=== PATIENT | female | born 1955 | race Caucasian/White ===

== ENCOUNTER 2023-07-22 13:00 | Outpatient (AMB) | payer OTHER, SELFPAY ==
--- NOTE | 2023-07-22 13:15 | A.SPINEOV_ITS ---
Intake Intake Visit Reasons: Low back pain Intake Note: Ms. Montenegro is here today c/o low back pain. MRI done @ [facility]/brought disc. Delivery Associate Required: No Assessment & Plan Assessment & Plan (1) Spondylolisthesis, lumbar region: Code(s): M43.16 - Spondylolisthesis, lumbar region Plan: Dear colleague Thank you for referring Ashley Montenegro for a 2nd opinion to the office today with a chief complaint of back pain and left leg pain. HPI: This 68-year-old female this suffer from progressive back pain and left leg pain. She was previously seen by Dr. Mehta, neurosurgeon at [facility] for the symptoms. He initially offered an L4-5 lumbar fusion and left L5 foraminotomy and during his last visit he only wanted to do a left L5 foraminotomy. This surgery was denied for not having completed a course of physical therapy recently. She had her last physical therapy visit today, which provided no relief. To the back pain is located in the lumbar spine, bilaterally. The leg pain radiates to the outside of her left leg to the top of her foot. The pain is associated with numbness. There is no clear radiation down her right leg. The pain in her leg especially becomes bothersome after walking up stairs. The back pain and leg pain become bothersome after prolonged standing. She denies weakness. 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 Nonsmoker Medications: Tramadol, diclofenac, pregabalin, omeprazole, ipratropium, trazodone, tizanidine, Cassandra and Buspirone Allergies: NKDA Physical Exam: Pleasant female. She is able to come out of a chair without difficulties. Straight leg raise is negative. No objective motor or sensory deficits. No pathological reflexes. Radiological Studies: MRI done at [facility] shows a grade 1 anterolisthesis L4-5, moderate to severe degenerative disc disease L5-S1 with left moderate to severe L5 foraminal stenosis. A standing lumbar x-ray with flexion-extension shows again the grade 1-2 spondylolisthesis L4-5. Impression/Plan: This patient is suffering from back pain and left lumbar radiculopathy. Both symptoms are interfering with her daily activities. She has been calling and more sick due to the pain symptoms. The back pain could be related to the L4-5 spondylolisthesis but also be coming from the L5-S1 degenerative disc disease. The lumbar radiculopathy is most likely associated with the left L5 foraminal stenosis. To treat the back pain involves a lumbar fusion, which in this case may be an L4-S1 lumbar fusion. My advice to the patient would be to undergo a left L5 laminotomy/foraminotomy to decompress the L5 nerve root to treat her left leg pain. Postoperatively, we can follow the back pain and see if this surgery had any in friends on the back pain as well. A fusion could always be done in the future. She is scheduled for a the L5 nerve root decompression on 08/28/2023. Thank you for allowing me to participate in your patients care. total time spent was 50 minutes in counseling ,coordination of plan, personal review of imaging, surgical decision making and subsequent plan Syd Escalera MD, PhD Spine Fellowship Trained Neurosurgeon Director, [facility] [place] [facility] (2) Neuroforaminal stenosis of lumbar spine: Code(s): M48.061 - Spinal stenosis, lumbar region without neurogenic claudication (3) Disc disease, degenerative, lumbar or lumbosacral: Code(s): M51.37 - Other intervertebral disc degeneration, lumbosacral region Orders: Orders XR lumbar spine 4V min Today M43.16 - Spondylolisthesis, lumbar region Coding Level of Care Code New Pt Level 4 (25717) Diagnoses Spondylolisthesis, lumbar region M43.16 Neuroforaminal stenosis of lumbar spine M48.061 Disc disease, degenerative, lumbar or lumbosacral M51.37
== END 2023-07-22 14:19 | disposition home or self-care (01) ==
PROVIDERS: Referring Provider Physical Medicine & Rehabilitation; Visit Provider Neurological Surgery
DX: M43.16 Spondylolisthesis, lumbar region (principal); M48.061 Spinal stenosis, lumbar region without neurogenic claudication; M51.37 Other intervertebral disc degeneration, lumbosacral region
CPT/HCPCS: 99204

== ENCOUNTER 2023-07-22 13:00 | Outpatient (REF) | payer OTHER, SELFPAY ==
--- NOTE | ~2023-07-22 | XR_ITS ---
EXAMINATION: XR LUMBOSACRAL SPINE WITH OBLIQUES CLINICAL INFORMATION: Spondylolisthesis. COMPARISON: None available. TECHNIQUE: 4 views of the lumbar spine inclusive of flexion and extension views. FINDINGS: Slight rightward curvature of the thoracolumbar spine. The bones are diffusely demineralized. Grade 1 anterolisthesis of L4 on L5 persists on flexion and extension views. Mild loss of disc space height at L4-L5. Marked degenerative changes at L5-S1 with loss of disc space height, vacuum phenomenon and hypertrophic change. Facet arthritis in the lower lumbar spine. XR/XR lumbar spine 4V min IMPRESSION: Grade 1 anterolisthesis of L4 on L5. Marked degenerative changes at L5-S1.
== END 2023-07-22 13:01 | disposition home or self-care (01) ==
LOC: HO.HOSX 13:00
PROVIDERS: Visit Provider Neurological Surgery
DX: M43.16 Spondylolisthesis, lumbar region (principal); M51.37 Other intervertebral disc degeneration, lumbosacral region
CPT/HCPCS: 72110

== ENCOUNTER 2023-08-12 13:40 | Outpatient (AMB) | payer OTHER, SELFPAY ==
--- NOTE | 2023-08-12 13:58 | HO.SPINEOV ---
Intake Intake Visit Reasons: Pt forgot to ask questions on her visit 07/22/23 Intake Note: Ms. Montenegro is here today Re: surgical questions. Field Logistics Coordinator Required: No Assessment & Plan Assessment & Plan (1) Spondylolisthesis, lumbar region: Code(s): M43.16 - Spondylolisthesis, lumbar region (2) Disc disease, degenerative, lumbar or lumbosacral: Code(s): M51.37 - Other intervertebral disc degeneration, lumbosacral region (3) Neuroforaminal stenosis of lumbar spine: Code(s): M48.061 - Spinal stenosis, lumbar region without neurogenic claudication Plan Dear colleague On 08/12/2023, I saw for another preoperative visit your patient Ashley Rouse. She scheduled to undergo a left L5 foraminotomy in attempt to avoid an L4-S1 lumbar fusion. However she returns to make sure she made the right decision. She tells me that not only her left leg is affected but her that her right leg is also affected with pain towards the right thigh and numbness on the top of her foot. She also states that the back pain becomes unbearable. She tried all forms of therapy discussing my previous note. We reviewed the MRI of the lumbar spine again in detail which shows a grade 2 L4-5 spondylolisthesis, severe L5-S1 degenerative disc disease and a severe left L5 foraminal stenosis. A standing x-ray shows a grade 2 L4-5 spondylolisthesis and severe L5-S1 degenerative disc disease with vacuum phenomena. Based on her clinical symptoms, a left L5 foraminotomy is not going to be sufficient to treat bilateral leg pain and back pain. Therefore, I offered her an oblique lumbar interbody fusion L4-S1 to correct the spondylolisthesis that will indirectly decompress her central canal and exiting nerve roots and to address her severely degenerated L5-S1 disc and foraminal stenosis. She will be scheduled for October. She will visit , will provide the access to the L5-S1 region. I spent 30 minutes in this consult for repeat history and review of imaging and discussing plan of care. Thank you for letting me take care of your patient. Syd Escalera MD, PhD Spine Fellowship Trained Neurosurgeon Director, [facility] [place] [facility] Coding Level of Care Code Est Pt Level 4 (75695) Diagnoses Spondylolisthesis, lumbar region M43.16 Disc disease, degenerative, lumbar or lumbosacral M51.37 Neuroforaminal stenosis of lumbar spine M48.061
== END 2023-08-12 15:07 | disposition home or self-care (01) ==
PROVIDERS: Visit Provider Neurological Surgery
DX: M43.16 Spondylolisthesis, lumbar region (principal); M51.37 Other intervertebral disc degeneration, lumbosacral region; M48.061 Spinal stenosis, lumbar region without neurogenic claudication
CPT/HCPCS: 99214

== ENCOUNTER → 2023-08-12 13:40 | Outpatient (BNVA) | payer OTHER, SELFPAY | PROVIDERS: Visit Provider Neurological Surgery ==

== ENCOUNTER 2023-11-11 14:42 | Outpatient (AMB) | payer OTHER, SELFPAY ==
--- NOTE | 2023-11-11 14:44 | MHC.OFFVIS ---
Intake Intake Visit Reasons: F/u after surgical denial from insurance Senior Air Director Required: No Allergies No Known Allergies Allergy (Verified 08/22/23 10:28) [facility] Medical History (Updated 08/22/23 @ 11:11 by Suad Bowen RN) Palpitations Low vitamin D level Lichen sclerosus Heberden's nodes of both hands Insomnia DJD (degenerative joint disease) of cervical spine DDD (degenerative disc disease), lumbar Chronic narcotic use Depression COVID-19 Elevated cholesterol Murmur Back pain Neck pain Osteopenia Osteoporosis Arthritis HTN (hypertension) Assessment & Plan Assessment & Plan (1) Disc disease, degenerative, lumbar or lumbosacral: Code(s): M51.37 - Other intervertebral disc degeneration, lumbosacral region (2) Neuroforaminal stenosis of lumbar spine: Code(s): M48.061 - Spinal stenosis, lumbar region without neurogenic claudication (3) Spondylolisthesis, lumbar region: Code(s): M43.16 - Spondylolisthesis, lumbar region Plan Dear colleague, On 11/11/2023, I saw for return visit Ashley Montenegro after her L4-S1 lumbar fusion was denied by [employer]. The patient is suffering from intractable low back pain radiating down both legs. The pain in her legs are associated with walking and standing and improves when she sits down. The low back pain is constant. An MRI of the lumbar spine from September 2022 shows a grade 2 L4-5 spondylolisthesis with associated moderate central spinal stenosis and lateral recess stenosis and severe degenerative disc disease L5-S1 with severe left L5 foraminal stenosis. The MRI report is incomplete as it obliterates the L4-5 spondylolisthesis and associated moderate central spinal stenosis. A standing x-ray with flexion-extension shows again a grade 2 L4-5 spondylolisthesis with instability. The patient was denied wrongly based on the above information that was also dictated in my previous notes. It is just unfair that nonprofessionals looking at MRI reports without talking to the patient and examining the patient or actually reviewing the imaging are making surgical decisions, while the patient was evaluated by a neurosurgeon with more than 20 years of experience. The plan will be to repeat of the MRI of the lumbar spine and resubmit for surgery. Syd Escalera MD, PhD Spine Fellowship Trained Neurosurgeon Director, [facility] [place] [facility] Orders: Orders MR lumbar spine wo con Today M43.16 - Spondylolisthesis, lumbar region, M48.061 - Spinal stenosis, lumbar region without neurogenic claudication, M51.37 - Other intervertebral disc degeneration, lumbosacral region Coding Level of Care Code Est Pt Level 2 (04400) Diagnoses Disc disease, degenerative, lumbar or lumbosacral M51.37 Neuroforaminal stenosis of lumbar spine M48.061 Spondylolisthesis, lumbar region M43.16
== END 2023-11-11 15:30 | disposition home or self-care (01) ==
PROVIDERS: PCP Nurse Practitioner Adult Health; Visit Provider Neurological Surgery
DX: M51.37 Other intervertebral disc degeneration, lumbosacral region (principal); M48.061 Spinal stenosis, lumbar region without neurogenic claudication; M43.16 Spondylolisthesis, lumbar region
CPT/HCPCS: 99212

== ENCOUNTER → 2023-11-11 14:42 | Outpatient (BNVA) | payer OTHER, SELFPAY | PROVIDERS: PCP Nurse Practitioner Adult Health; Visit Provider Neurological Surgery ==

== ENCOUNTER 2023-11-25 18:51 | Outpatient (REF) | payer OTHER, SELFPAY ==
--- NOTE | ~2023-11-25 | MR_ITS ---
EXAMINATION: MR LUMBAR SPINE WITHOUT CONTRAST CLINICAL INFORMATION: Left leg radiculopathy. COMPARISON: X-ray lumbar spine dated 07/22/2023. TECHNIQUE: Multiplanar, multisequence imaging was obtained. FINDINGS: VERTEBRAL BODIES AND PARASPINAL STRUCTURES: There is an intraosseous hemangioma nearly filling the entirety of the T12 vertebral body. No compression fractures are identified. There is a mild anterolisthesis at the L4-L5 level. No marrow or soft tissue edematous changes are seen. Multilevel reduced intradiscal signal and mild loss of disc height evident. The paraspinal soft tissues appear normal. A 6 mm round low signal focus in the left kidney may represent a small proteinaceous cyst or nonobstructing calculus. CONUS MEDULLARIS AND CAUDA EQUINE: The distal cord, conus tip, and cauda equina nerve roots are normal. SPINAL LEVELS: L1-L2: Small posterior annular fissure and minimal disc bulge. No central canal stenosis or foraminal narrowing. L2-L3: Slight posterior subluxation and disc bulge without central canal stenosis or foraminal narrowing. L3-L4: Mild retrosubluxation and broad-based disc bulge lateralized more so to the right side with encroachment upon the right subarticular zone, contacting the right L4 nerve root. Mild facet arthropathy. Zsrr-ol-uptaykcf right foraminal narrowing. L4-L5: Anterior subluxation and unroofing of the disc with severe facet arthropathy. Dhyx-jy-hhekzdio central canal stenosis and mild foraminal narrowing. L5-S1: Reduced intradiscal signal and disc bulge with endplate spurring. No central canal stenosis. Moderate right foraminal narrowing. Severe left foraminal encroachment from bulging disc and osseous spurring impressing upon the exiting left L5 nerve root. MR/MR lumbar spine wo con IMPRESSION: 1. Mild anterolisthesis and severe facet arthropathy at the L4-L5 level with stgh-jc-kgyqarys central canal stenosis. 2. Mild retrosubluxation and broad-based disc bulge at the L3-L4 level encroaching upon the right subarticular zone and contacting the right L4 nerve root. Ajeb-vi-wicrrvre right foraminal narrowing. 3. Moderate right foraminal narrowing and mild disc degeneration at the L5-S1 level. Severe left foraminal encroachment from bulging disc and osseous spurring impressing upon the left L5 nerve root. 4. Indeterminate 6 mm low signal focus in the interpolar region of the left kidney, possibly representing a calculus or a proteinaceous cyst. This could be further evaluated with follow-up renal sonography.
== END 2023-11-25 18:52 | disposition home or self-care (01) ==
LOC: HO.MRI 18:51
PROVIDERS: PCP Nurse Practitioner Adult Health; Visit Provider Neurological Surgery
DX: M43.16 Spondylolisthesis, lumbar region (principal); M48.061 Spinal stenosis, lumbar region without neurogenic claudication; M51.37 Other intervertebral disc degeneration, lumbosacral region
CPT/HCPCS: 72148

== ENCOUNTER 2023-12-24 14:49 | Outpatient (AMB) | payer OTHER, SELFPAY ==
--- NOTE | 2023-12-24 15:00 | A.OFFVIS_ITS ---
Intake Intake Visit Reasons: MRI f/up Yarn Twister Required: No Allergies No Known Allergies Allergy (Verified 08/22/23 10:28) [facility] Medical History (Updated 12/24/23 @ 15:32 by Syd Escalera MD, PhD) Palpitations Low vitamin D level Lichen sclerosus Heberden's nodes of both hands Insomnia DJD (degenerative joint disease) of cervical spine DDD (degenerative disc disease), lumbar Chronic narcotic use Depression COVID-19 Elevated cholesterol Murmur Back pain Neck pain Osteopenia Osteoporosis Arthritis HTN (hypertension) Assessment & Plan Assessment & Plan (1) Cervical spinal cord compression: Code(s): G95.20 - Unspecified cord compression (2) Disc disease, degenerative, lumbar or lumbosacral: Code(s): M51.37 - Other intervertebral disc degeneration, lumbosacral region (3) Neuroforaminal stenosis of lumbar spine: Code(s): M48.061 - Spinal stenosis, lumbar region without neurogenic claudication Plan Dear colleague, On 12/24/2023 and I saw for follow-up Ashley Montenegro. She was offered an oblique lumbar interbody fusion L4-5 and L5-S1 to treat a grade 2 spondylolisthesis L4-5 with moderate central canal stenosis and severe degenerative disc disease L5-S1 with severe left L5 foraminal stenosis. [employer], the insurance company, only approved the L5-S1 fusion as according to them the L4-5 is not bad enough to undergo surgery. They have not seen the patient, they have not seen imaging and just deny patient care. If I would show the imaging to 10 spine surgeons, I can guarantee that 9/10 would say that she needs a 2 level fusion and that leaving the L4-5 level alone would result in an additional L4-5 fusion in the near future. We are going to try to appeal the decision and I hope I will speak to a spine fellowship trained surgeon to address the issue. It is just unacceptable that this is done to our patients and their physicians. I only studied 18 years to become a neurosurgeon and have more than 22 years of experience. During the discussion today, the patient mentioned that she has urge incontinence and numbness of her bilateral hands. Apparently, she had an MRI done in the past I was offered cervical spine surgery. Dear urge incontinence symptom is worrisome and therefore I will also order an MRI of the cervical spine and hopefully this will get approved. I will see the patient back after the MRIs done. Syd Escalera MD, PhD Spine Fellowship Trained Neurosurgeon Director, [facility] [place] [facility] Orders: Orders MR cervical spine wo con Today G95.20 - Unspecified cord compression Coding Level of Care Code Est Pt Level 3 (55437) Diagnoses Cervical spinal cord compression G95.20 Disc disease, degenerative, lumbar or lumbosacral M51.37 Neuroforaminal stenosis of lumbar spine M48.061
== END 2023-12-24 16:33 | disposition home or self-care (01) ==
PROVIDERS: PCP Nurse Practitioner Adult Health; Visit Provider Neurological Surgery
DX: G95.20 Unspecified cord compression (principal); M51.37 Other intervertebral disc degeneration, lumbosacral region; M48.061 Spinal stenosis, lumbar region without neurogenic claudication
CPT/HCPCS: 99213

== ENCOUNTER → 2023-12-24 14:49 | Outpatient (BNVA) | payer OTHER, SELFPAY | PROVIDERS: PCP Nurse Practitioner Adult Health; Visit Provider Neurological Surgery ==

== ENCOUNTER 2024-01-13 17:20 | Outpatient (REF) | payer OTHER, SELFPAY ==
--- NOTE | ~2024-01-13 | MR_ITS ---
EXAMINATION: MR CERVICAL SPINE WITHOUT CONTRAST CLINICAL INFORMATION: 68-year-old with self-reported neck pain over prior year with left finger numbness or weakness and left leg pain. Unspecified cord compression. COMPARISON: None available. TECHNIQUE: MRI of the cervical spine was obtained using routine sequences without contrast. FINDINGS: ALIGNMENT: There is mild lordotic reversal centered at C4-C5 with 2 mm of anterolisthesis at C4 on C5. There is trace anterolisthesis at C7-T1. CRANIOCERVICAL JUNCTION/C1-C2 ARTICULATIONS: The atlanto-occipital joints are intact and aligned. There are mild bilateral joint effusions, right more than left which are nonspecific. There are mild degrees of retrolisthesis at the C1-C2 articulations bilaterally likely reflecting ligamentous laxity and patient position. There are degenerative changes at the atlantodental joint with a tiny effusion noted. VISUALIZED INTRACRANIAL STRUCTURES: Within normal limits. VERTEBRAL BODIES: There is mild chronic anterior wedging of the C4 and C5 vertebral bodies. Otherwise vertebral body heights are well-maintained. DISC SPACES AND ENDPLATES: Moderate to severe intervertebral disc space height loss noted at C5-C6 and C6-C7 with Schmorl's nodes, disc desiccation and spondylosis. Mjdp-ii-fpogwyih disc volume loss at C4-C5 noted with disc desiccation and minor spondylosis. Mild disc volume loss at C7-T1 noted. BONE MARROW: Minor type I degenerative marrow signal changes seen along the endplates at C6-C7. Type II marrow signal changes along the endplates at C5-C6 and C6-C7 also noted. No focally suspicious marrow replacing process. Minor subchondral marrow edema noted adjacent to the left C3-C4 and C4-C5 facet joints likely degenerative. C2-C3: Tiny central disc protrusion without significant thecal sac encroachment. Mild right and moderate left-sided facet joint arthropathy with uncinate process spurring on the left and tbmv-iv-whekyxyb left-sided neural foraminal stenosis. Ligamentum flavum thickening noted without significant canal stenosis. C3-C4: Small posterior disc osteophyte complex noted with minimal indentation of the ventral thecal sac without cord impingement. Ligamentum flavum thickening or buckling noted without significant canal stenosis. Uncovertebral spurring noted with bhjsqcom-uy-ykjntb bilateral facet joint arthropathy, with ghde-zn-jraarxnz right and mild left-sided neural foraminal stenosis. C4-C5: Unroofing of the posterior disc margin with mild flattening of the ventral dural sac without cord impingement or canal stenosis. Moderate bilateral facet hypertrophic changes and uncinate process spurring noted without significant neural foraminal stenosis. C5-C6: Broad-based posterior disc osteophyte complex noted, with flattening of the ventral dural sac without cord impingement. Slight chronic ventral cord deformity centrally is noted with mild central canal stenosis. Uncovertebral spurring noted left more than right with vocw-wv-fjubcsos facet joint arthropathy left more than right. There is moderate left-sided neural foraminal stenosis. C6-C7: Broad-based disc osteophyte complex is noted with flattening of the ventral dural sac without cord impingement. Mild canal stenosis is noted. There is uncovertebral spurring left more than right and nqhm-uf-kproamtl facet arthropathy left more than right, with moderate to severe left-sided and mild right-sided neural foraminal stenosis. C7-T1: Trace unroofing of the posterior disc margin noted without disc herniation or canal stenosis. Cgfa-va-toczmuhu facet joint arthropathy left more than right noted without significant neural foraminal stenosis. SPINAL CORD: The cervical and visualized upper thoracic spinal cord is normal in signal intensity throughout, without focal lesion, edema or syrinx when allowing for artifacts. No cord compression. EXTRACRANIAL SOFT TISSUES: The visualized extracranial head/neck soft tissues are unremarkable within the limitations of the study. Signal voids are noted in the visualized major arterial and venous structures. No prevertebral soft tissue edema. MR/MR cervical spine wo con IMPRESSION: 1. Lordotic reversal centered at C4-C5 with mild anterolisthesis at C4-C5 and trace anterolisthesis at C7-T1. 2. Multilevel DDD and spondylosis, with multilevel disc osteophyte complexes without cord impingement. Mild spinal canal stenosis at C5-C6 and C6-C7. Mild chronic ventral cord deformity at C5-C6 without cord compression. 3. Multilevel DJD as described above with multilevel bilateral neural foraminal stenosis, most apparent on the left at C6-C7 and C5-C6.
== END 2024-01-13 17:21 | disposition home or self-care (01) ==
LOC: HO.MRI 17:20
PROVIDERS: PCP Nurse Practitioner Adult Health; Visit Provider Neurological Surgery
DX: G95.20 Unspecified cord compression (principal)
CPT/HCPCS: 72141

== ENCOUNTER 2024-01-21 15:01 | Outpatient (AMB) | payer OTHER, SELFPAY ==
--- NOTE | 2024-01-21 16:11 | HO.SPINEOV ---
Intake Intake Visit Reasons: MRI f/u Intake Note: Ms. Montenegro is here today to F/u on Cervical Sp[place] [place]ings Analyst Required: No Allergies No Known Allergies Allergy (Verified 08/22/23 10:28) Assessment & Plan Assessment & Plan (1) Disc disease, degenerative, lumbar or lumbosacral: Code(s): M51.37 - Other intervertebral disc degeneration, lumbosacral region (2) Neuroforaminal stenosis of lumbar spine: Code(s): M48.061 - Spinal stenosis, lumbar region without neurogenic claudication (3) Spondylolisthesis, lumbar region: Code(s): M43.16 - Spondylolisthesis, lumbar region Plan Dear colleague, On 01/21/2024 I met with Ashley Montenegro to discuss the repeat denial by [employer] of her 2 level lumbar fusion for back pain and severe left leg pain. In the meantime, the patient keeps suffering more and more and eats more and more pain medications. The insurance approves the L5-S1 fusion but denies the L4-5 lumbar fusion despite a spondylolisthesis at this level. She failed conservative treatments, including physical therapy. I advised the patient to file a complaint with [employer] and or with the [facility]. In the meantime, I will try to get a peer to peer conversation to get this surgery approved. Of note, the MRI of the cervical spine is relatively benign and requires no surgical intervention. Syd Escalera MD, PhD Spine Fellowship Trained Neurosurgeon Director, [facility] [place] [facility] Coding Level of Care Code Est Pt Level 2 (47915) Diagnoses Disc disease, degenerative, lumbar or lumbosacral M51.37 Neuroforaminal stenosis of lumbar spine M48.061 Spondylolisthesis, lumbar region M43.16
== END 2024-01-21 16:42 | disposition home or self-care (01) ==
PROVIDERS: PCP Nurse Practitioner Adult Health; Visit Provider Neurological Surgery
DX: M51.37 Other intervertebral disc degeneration, lumbosacral region (principal); M48.061 Spinal stenosis, lumbar region without neurogenic claudication; M43.16 Spondylolisthesis, lumbar region
CPT/HCPCS: 99212

== ENCOUNTER → 2024-01-21 15:01 | Outpatient (BNVA) | payer OTHER, SELFPAY | PROVIDERS: PCP Nurse Practitioner Adult Health; Visit Provider Neurological Surgery ==

== ENCOUNTER 2024-04-02 09:30 | Outpatient (REF) | payer OTHER, SELFPAY ==
--- NOTE | ~2024-04-02 | XR_ITS ---
EXAMINATION: XR LUMBOSACRAL SPINE WITH OBLIQUES CLINICAL INFORMATION: Spondylolisthesis. COMPARISON: 11/25/2023, Lumbar spine 07/21/2023. TECHNIQUE: 4 views of the lumbar spine inclusive on flexion and extension views. FINDINGS: Mild S-shaped thoracolumbar scoliosis. The bones are diffusely demineralized. Multilevel lumbar spondylosis. Grade 1 anterolisthesis of L4 on L5 with flexion and extension. Mild loss of disc space height at L4-L5. Marked degenerative changes with loss of disc space height at L5-S1. Facet arthritis in the lower lumbar spine. Minimal retrolisthesis of L2 on L3. Minimal retrolisthesis of L3 on L4. XR/XR lumbar spine 4V min IMPRESSION: Multilevel lumbar spondylosis most notable at L5-S1.
== END 2024-04-02 09:31 | disposition home or self-care (01) ==
LOC: HO.HOSX 09:30
PROVIDERS: PCP Nurse Practitioner Adult Health; Visit Provider Neurological Surgery
DX: M43.16 Spondylolisthesis, lumbar region (principal); M51.37 Other intervertebral disc degeneration, lumbosacral region; M48.061 Spinal stenosis, lumbar region without neurogenic claudication; M41.9 Scoliosis, unspecified
CPT/HCPCS: 72110

== ENCOUNTER 2024-04-02 09:30 | Outpatient (AMB) | payer OTHER, SELFPAY ==
--- NOTE | 2024-04-02 09:36 | A.SPINEOV_ITS ---
Intake Visit Reasons: Worsening Symptoms Intake Note: Ms. Montenegro is here today c/o of numbness on the feet that is worsening with difficulty walking. Classifying Machine Operator Required: No Allergies Penicillins Adverse Reaction (Unknown, Verified 04/02/24 09:38) Unknown Assessment & Plan Assessment & Plan (1) Spondylolisthesis, lumbar region: Code(s): M43.16 - Spondylolisthesis, lumbar region Category: Medical Plan: Dear colleague, On 04/02/2024, I saw Ashley Montenegro. She is miserable from back pain leg pains and numbness. I have been trying to get her surgery approved by [facility] but they only partially approving her surgery. She needs an L4-S1 lumbar fusion but at not denies the L4-5 fusion despite that the patient has a clear L4-5 spondylolisthesis. I obtained an x-ray today which also now shows a unilateral collapse starting on the disc space at the right side. The patient can hardly walk. She can not do stairs which produces a lot of pain. Sitting to standing produces a lot of back pain. When she changes position she has numbness in her feet predominantly on the left side. The pain that radiates predominantly down her left leg radiates to the front of her thigh into the front of his shins. This patient is clearly symptomatic from the L4-5 segment and I do not know what to do anymore. 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 Not to mention how they treat the patients. Again, this patient badly needs an L4-S1 fusion. She has on the verge of losing her job. 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 Syd Escalera MD, PhD Spine Fellowship Trained Neurosurgeon Director, [facility] (2) Neuroforaminal stenosis of lumbar spine: Code(s): M48.061 - Spinal stenosis, lumbar region without neurogenic claudication Category: Medical (3) Disc disease, degenerative, lumbar or lumbosacral: Code(s): M51.37 - Other intervertebral disc degeneration, lumbosacral region Category: Medical Plan: d Plan d Orders: Orders XR lumbar spine 4V min Today M43.16 - Spondylolisthesis, lumbar region, M48.061 - Spinal stenosis, lumbar region without neurogenic claudication, M51.37 - Other intervertebral disc degeneration, lumbosacral region Coding Level of Care Code Est Pt Level 2 (20135) Diagnoses Spondylolisthesis, lumbar region M43.16 Neuroforaminal stenosis of lumbar spine M48.061 Disc disease, degenerative, lumbar or lumbosacral M51.37
== END 2024-04-02 10:36 | disposition home or self-care (01) ==
PROVIDERS: PCP Nurse Practitioner Adult Health; Visit Provider Neurological Surgery
DX: M43.16 Spondylolisthesis, lumbar region (principal); M48.061 Spinal stenosis, lumbar region without neurogenic claudication; M51.37 Other intervertebral disc degeneration, lumbosacral region
CPT/HCPCS: 99212

== ENCOUNTER 2024-04-20 09:25 | Outpatient (AMB) | payer OTHER, SELFPAY ==
--- NOTE | 2024-04-20 09:26 | HO.SPINEOV ---
Intake Visit Reasons: [employer] Denial Intake Note: Ms. Montenegro is here today to Discuss [employer] Denial. Rn Admit Required: No Allergies Penicillins Adverse Reaction (Unknown, Verified 04/02/24 09:38) Unknown Assessment & Plan Assessment & Plan (1) Spondylolisthesis, lumbar region: Code(s): M43.16 - Spondylolisthesis, lumbar region Category: Medical (2) Disc disease, degenerative, lumbar or lumbosacral: Code(s): M51.37 - Other intervertebral disc degeneration, lumbosacral region Category: Medical Plan Mrs Montenegro is back in the office today for yet another visit. Her surgery was denied for what was described as lack of Radiology findings consistent with surgical indication according to the [employer] insurance company. Specifically, she has a grade 1-2 spondylolisthesis at L4-5 but the radiology report did not mention a minimum of moderate stenosis either in the foramen or the central canal so they do not think this meets surgical indication despite her prominent back pain. She comes back into the office today concerned about her well-being and her ability to function. As detailed in the very thorough note by Dr. Escalera, this is a woman who has had chronic back pain as well as numbness worsened her left leg, as well as pain radiating down her legs as well. There is a component of pain that radiates to her knees now that has started to develop as well. She has significant trouble going up and down stairs. 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 She takes tramadol throughout the day just to be able to function. The trazodone helps her sleep. She has tried the Tylenol and anti-inflammatories [id number] regimens but they just have never given her any significant improvement. It goes without saying she is gone through numerous rounds of injections, therapy etc.. Her work situation has become more dire because she has had to cut down from 40 hours to 30 hours as she can not tolerate standing. Unfortunately she goes any lower than that she will lose her health insurance so she is just getting by on will power at this point. She is very frustrated and overwhelmed at the lack of progress on the side of the insurance company with approving her surgery. On my exam today, she has a lot of difficulty standing up, I had to help her just to get to an upright position. She is in significant amounts of pain with motor testing. She has diminished reflexes at the patella, normal reflexes at the Achilles. She has tenderness over the lower lumbar region. Her imaging review was detail by Dr. Escalera in the last note, but just to recap, she has a severely collapsed disc at L5-S1 seen on her MRI with bilateral neuroforaminal stenosis. Above this, she has a grade 1 spondylolisthesis at L4-5 with bilateral neural foraminal stenosis in the L4 foramen. She has overgrown facets which appear very arthritic. Her standing x-rays done in the office show that she has increased anterior translation of L4 on L5 in the upright position. There is also collapse on the right side of the disc in the vertical position. Impression: 69-year-old female who has back in the office today struggling to continue to function in the setting of severe back pain with pain and numbness going down both of her legs, worse on the left. The pain is aggravated with standing and walking and lifting. 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 She also has to lift boxes at her job. She has had to cut her hours back almost to a point where she may lose her health insurance. She is very frustrated with the lack of progress with the lack of insurance authorization for the surgery Dr Escalera would like to perform. The whole situation is very overwhelming for her. She has been through conservative treatment. Although the original MRI radiology report does not describe moderate central and moderate foraminal stenosis at L4-5, obviously when she stands and is in a vertical position and the L4 body translates anteriorly as we see on the xray imaging, this will narrow the foramen more. We will attempt to resubmit for surgery again, not only for the L5-S1 fusion which has been approved, but for the L4-5 which is showing signs of dynamic movement in a vertical position. Obviously, if we were to perform the L5-S1 fusion surgery and not be able to do the L4-5 with its unstable segment, this would put the patient in unnecessary harm's way and ultimately require to undergo surgery again to fix something that we would like to just fix in one setting. Total amount of time spent in this visit was 20 minutes in discussion of symptoms, lumbar MRI and x-ray imaging results and subsequent plan of care Hernán Escalera MD,PhD [facility] Coding Level of Care Code Est Pt Level 3 (08107) Diagnoses Spondylolisthesis, lumbar region M43.16 Disc disease, degenerative, lumbar or lumbosacral M51.37
== END 2024-04-20 09:50 | disposition home or self-care (01) ==
PROVIDERS: PCP Nurse Practitioner Adult Health; Visit Provider Physician Assistant
DX: M43.16 Spondylolisthesis, lumbar region (principal); M51.37 Other intervertebral disc degeneration, lumbosacral region
CPT/HCPCS: 99213

== ENCOUNTER → 2024-04-20 09:25 | Outpatient (BNVA) | payer OTHER, SELFPAY | PROVIDERS: PCP Nurse Practitioner Adult Health; Visit Provider Physician Assistant ==

== ENCOUNTER 2024-05-11 14:49 | Outpatient (AMB) | payer OTHER, MEDICARE, SELFPAY ==
--- NOTE | 2024-05-11 14:50 | A.SPINEOV_ITS ---
Intake Visit Reasons: C/o worsening symptoms. Intake Note: Ms. Montenegro is here today c/o worsening back pain. Healthcare Specialist Required: No Allergies Penicillins Adverse Reaction (Unknown, Verified 05/11/24 14:54) Unknown Assessment & Plan Assessment & Plan (1) Disc disease, degenerative, lumbar or lumbosacral: Code(s): M51.37 - Other intervertebral disc degeneration, lumbosacral region Category: Medical (2) Neuroforaminal stenosis of lumbar spine: Code(s): M48.061 - Spinal stenosis, lumbar region without neurogenic claudication Category: Medical (3) Spondylolisthesis, lumbar region: Code(s): M43.16 - Spondylolisthesis, lumbar region Category: Medical Plan On 05/10/2024, I saw for return visit Ashley Montenegro for her persistent symptoms of back pain and bilateral leg pain due to a grade 1-2 L4-5 spondylolisthesis and lumbar degenerative disc disease L5-S1. I refer for detailed description of her problem to previous notes. We resubmitted to [facility] for an L4-S1 fusion. This patient is miserable and on the verge of losing her job. She can not function. She can hardly walk and so far has been denied the proper care by her insurance company. We will wait for the decision and go from there. Syd Escalera MD, PhD Spine Fellowship Trained Neurosurgeon Director, [facility] [place] [facility] Coding Level of Care Code Est Pt Level 2 (95936) Diagnoses Disc disease, degenerative, lumbar or lumbosacral M51.37 Neuroforaminal stenosis of lumbar spine M48.061 Spondylolisthesis, lumbar region M43.16
== END 2024-05-11 15:19 | disposition home or self-care (01) ==
PROVIDERS: PCP Nurse Practitioner Adult Health; Visit Provider Neurological Surgery
DX: M51.37 Other intervertebral disc degeneration, lumbosacral region (principal); M48.061 Spinal stenosis, lumbar region without neurogenic claudication; M43.16 Spondylolisthesis, lumbar region
CPT/HCPCS: 99212

== ENCOUNTER → 2024-05-11 14:49 | Outpatient (BNVA) | payer OTHER, SELFPAY | PROVIDERS: PCP Nurse Practitioner Adult Health; Visit Provider Neurological Surgery ==

== ENCOUNTER → 2024-06-02 11:25 | Outpatient (BNV) | payer OTHER, SELFPAY | PROVIDERS: PCP Nurse Practitioner Adult Health; Visit Provider Internal Medicine Cardiovascular Disease | DX: Z01.818 Encounter for other preprocedural examination (principal) | CPT/HCPCS: 93010 ==

== ENCOUNTER 2024-06-02 13:47 | Outpatient (AMB) | payer OTHER, MEDICARE, SELFPAY ==
--- NOTE | 2024-06-02 13:52 | A.SPINEOV_ITS ---
Intake Visit Reasons: 3 week f/u Intake Note: Ms. Montenegro is here today for a 3 Week F/u. Global Risk Management Director Required: No Allergies Penicillins Adverse Reaction (Unknown, Verified 06/02/24 14:02) Unknown Assessment & Plan Assessment & Plan (1) Disc disease, degenerative, lumbar or lumbosacral: Code(s): M51.37 - Other intervertebral disc degeneration, lumbosacral region Category: Medical Plan On 06/02/2024 I saw for preoperative visit Ashley Montenegro. She scheduled to undergo an oblique lumbar interbody fusion/anterior lumbar interbody fusion L4- S1 in 2 weeks. I answered the final questions. She was cleared for surgery. Syd Escalera MD, PhD Spine Fellowship Trained Neurosurgeon Director, [facility] [place] [facility] Coding Level of Care Code Est Pt Level 2 (91161) Diagnoses Disc disease, degenerative, lumbar or lumbosacral M51.37
== END 2024-06-02 14:31 | disposition home or self-care (01) ==
PROVIDERS: PCP Nurse Practitioner Adult Health; Visit Provider Neurological Surgery
DX: M51.37 Other intervertebral disc degeneration, lumbosacral region (principal)
CPT/HCPCS: 99212

== ENCOUNTER → 2024-06-02 13:47 | Outpatient (BNVA) | payer OTHER, MEDICARE, SELFPAY | PROVIDERS: PCP Nurse Practitioner Adult Health; Visit Provider Neurological Surgery ==

== ENCOUNTER 2024-06-16 06:01 | Inpatient (IN) | payer OTHER, MEDICARE, SELFPAY ==
--- NOTE | 2024-06-02 | ECG_ITS ---
Test Reason : PREOP Blood Pressure : / mmHG Vent. Rate : 063 BPM Atrial Rate : 063 BPM P-R Int : 182 ms QRS Dur : 082 ms QT Int : 422 ms P-R-T Axes : 065 045 051 degrees QTc Int : 431 ms Normal sinus rhythm Normal ECG No previous ECGs available Referred By: Padmini Minor Electronically Signed By:Indio Marks
[2024-06-02 10:23] VITALS: BP 131/60; PULSE 69; RESP 17; O2SAT 97; BMI 22.9
--- NOTE | 2024-06-02 10:50 | HO.ANESPROP2 ---
Documented by User: Padmini Minor NP 06/15/24 08:47 HPI - Anesthesia Eval Consult details Narrative: 69yo F for L4-5,L5-S1 Oblique Lumbar Interbody Fusion, 06/16/24 No recent illness No CP/SOB with stairs, activity limited to back pain Previously eval'd by [facility] cardiology for CP - neg cath after pos stress test, likely r/t anxiety PMFSH Active Problems Active Problems: All Active Problems Cervical spinal cord compression (Acute) Disc disease, degenerative, lumbar or lumbosacral (Acute) Neuroforaminal stenosis of lumbar spine (Acute) Spondylolisthesis, lumbar region (Acute) Past Medical History Medical History Anemia Wheezing Seasonal allergies Mild tricuspid valve regurgitation Memory problem Anxiety Palpitations Low vitamin D level Lichen sclerosus Heberden's nodes of both hands Insomnia DJD (degenerative joint disease) of cervical spine DDD (degenerative disc disease), lumbar Chronic narcotic use Depression COVID-19 Elevated cholesterol Murmur Back pain Neck pain Osteopenia Osteoporosis Arthritis HTN (hypertension) Family History Family history of problems with anesthesia: No Surgical History Surgical History H/O cardiac catheterization H/O colonoscopy History of Problems with Anesthesia: No (Never rec'd GA) Social History Social History Are you a primary director of managed care to a significant other at home: No Do you presently have visiting nurse or other home services: No Patient Tobacco Use Status: Never used Tobacco Use of substances other than those prescribed or required for medical reasons: No Have you been hit, kicked, punched, or otherwise hurt by someone within the past year? If so, by whom?: No Are you DNR?: No Advance Directives: No Advance Directives Information Provided: Yes Advance Directives on File: No Recently lost weight without trying: No Nutrition Risks: No Nutritional Risk Patient : No : No Poor oral hygiene: Yes (crown, caps) Meds Allergies Allergy/AdvReac Type Severity Reaction Status Date / Time Penicillins AdvReac Unknown Patient Verified 06/16/24 06:06 doesn't recall being allergic Home Medications ?Medication ?Instructions ?Recorded ?Confirmed ?Last Taken ?Type buspirone 15 mg tablet 15 mg PO TID 08/22/23 06/16/24 06/16/24 History clobetasol 0.05 % topical ointment 1 appl topical 2XW PRN as directed 08/22/23 06/16/24 Unknown History diclofenac sodium 1 % topical gel 2 g topical QID PRN Pain 08/22/23 06/16/24 Unknown History estradiol 0.01% (0.1 mg/gram) 1 g vaginal 3XW PRN as directed 08/22/23 06/16/24 Unknown History vaginal cream ipratropium bromide 42 mcg (0.06 2 spray intranasal TID 08/22/23 06/16/24 06/15/24 History %) nasal spray loratadine 10 mg tablet 10 mg PO DAILY 08/22/23 06/16/24 06/16/24 History tizanidine 4 mg capsule 4 mg PO TID PRN muscle spasm 08/22/23 06/16/24 06/15/24 History tramadol 50 mg tablet 100 mg PO Q6H PRN pain 08/22/23 06/16/24 06/16/24 04:30 History trazodone 100 mg tablet 200 mg PO BEDTIME PRN Insomnia 08/22/23 06/16/24 Unknown History cyanocobalamin (vitamin B-12) 1,000 mcg PO DAILY 06/01/24 06/16/24 06/14/24 History 1,000 mcg tablet,extended release (Vitamin B-12 ER) pregabalin 150 mg capsule 150 mg PO BID 06/02/24 06/16/24 06/16/24 History sertraline 25 mg tablet 25 mg PO DAILY 06/02/24 06/16/24 06/16/24 History Exam Height,Weight and Vital Signs: Height 5 ft 4 in Weight 60.421 kg Last Vital Signs Pulse 69 06/02/24 10:23 Resp 17 06/02/24 10:23 BP 131/60 06/02/24 10:23 Pulse Ox 97 06/02/24 10:23 O2 Del Method Room Air 06/02/24 10:23 Pertinent Lab Results Pertinent Lab Results: Lab Results 06/02/24 06/02/24 Range/Units 11:18 11:20 WBC 4.1 L (4.8-10.8) X10*3/uL RBC 3.75 L (4.20-5.50) X10*6/uL Hgb 11.6 L (12.0-16.0) g/dl Hct 35.0 L (37.0-47.0) % MCV 93.3 (80.0-98.0) fL MCH 30.9 (27.0-33.0) pg MCHC 33.1 (31.0-35.0) g/dl RDW 13.9 (11.0-16.0) % Plt Count 243 (160-400) X10*3/uL MPV 10.2 (9.4-12.3) fL Absolute Nucleated RBC 0.000 (0.0-0.012) X10*3/uL Nucleated RBC % (auto) 0.0 (0.0-0.2) /100WBC Sodium 141 (135-145) mmol/L Potassium 3.9 (3.3-5.1) mmol/L Chloride 104 (96-108) mmol/L Carbon Dioxide 30 H (22-29) mmol/L Anion Gap 11 L (12-20) BUN 15 (9-16) mg/dL Creatinine 0.86 (0.5-1.4) mg/dL Estim Creat Clear Calc 54.1 Estimated GFR > 60 Random Glucose 80 (60-115) mg/dL Calcium 9.3 (8.4-10.2) mg/dL Blood Type A Positive Antibody Screen NEGATIVE Narrative Narrative: EKG 05/2024 Vent. Rate : 063 BPM Atrial Rate : 063 BPM P-R Int : 182 ms QRS Dur : 082 ms QT Int : 422 ms P-R-T Axes : 065 045 051 degrees QTc Int : 431 ms Normal sinus rhythm Normal ECG No previous ECGs available Airway Mallampati Class: II TM Dist: >3cm Neck ROM: Full Loose/Missing/Broken Teeth: No (Capped front upper teeth, capped molars) Heart: RRR Lungs: CTAB Assessment and Plan Assessment Anesthesia Assessment: Anesthesia Plan Discussed and PAT Visit Final Anesthetic Review Family History of Problems with Anesthesia: No History of Problems with Anesthesia: No (Never rec'd GA) Documented by User: Conchis Fernandez MD 06/16/24 09:48 HPI - Anesthesia Eval Consult details Narrative: 69yo F for L4-5,L5-S1 Oblique Lumbar Interbody Fusion, 06/16/24 No recent illness No CP/SOB with stairs, activity limited due to back pain Previously eval'd by [facility] cardiology for CP - neg cath after pos stress test, likely r/t anxiety [facility] Past Medical History Medical History Anemia Wheezing Seasonal allergies Mild tricuspid valve regurgitation Memory problem Anxiety Palpitations Low vitamin D level Lichen sclerosus Heberden's nodes of both hands Insomnia DJD (degenerative joint disease) of cervical spine DDD (degenerative disc disease), lumbar Chronic narcotic use Depression COVID-19 Elevated cholesterol Murmur Back pain Neck pain Osteopenia Osteoporosis Arthritis HTN (hypertension) Family History Family history of problems with anesthesia: No Surgical History Surgical History H/O cardiac catheterization H/O colonoscopy History of Problems with Anesthesia: No Social History Social History Are you a primary director of managed care to a significant other at home: No Do you presently have visiting nurse or other home services: No Patient Tobacco Use Status: Never used Tobacco Use of substances other than those prescribed or required for medical reasons: No Have you been hit, kicked, punched, or otherwise hurt by someone within the past year? If so, by whom?: No Are you DNR?: No Advance Directives: No Advance Directives Information Provided: Yes Advance Directives on File: No Recently lost weight without trying: No Nutrition Risks: No Nutritional Risk Patient : No : No Poor oral hygiene: Yes (crown, caps) Meds Allergies Allergy/AdvReac Type Severity Reaction Status Date / Time Penicillins AdvReac Unknown Patient Verified 06/16/24 06:06 doesn't recall being allergic Home Medications ?Medication ?Instructions ?Recorded ?Confirmed ?Last Taken ?Type buspirone 15 mg tablet 15 mg PO TID 08/22/23 06/16/24 06/16/24 History clobetasol 0.05 % topical ointment 1 appl topical 2XW PRN as directed 08/22/23 06/16/24 Unknown History diclofenac sodium 1 % topical gel 2 g topical QID PRN Pain 08/22/23 06/16/24 Unknown History estradiol 0.01% (0.1 mg/gram) 1 g vaginal 3XW PRN as directed 08/22/23 06/16/24 Unknown History vaginal cream ipratropium bromide 42 mcg (0.06 2 spray intranasal TID 08/22/23 06/16/24 06/15/24 History %) nasal spray loratadine 10 mg tablet 10 mg PO DAILY 08/22/23 06/16/24 06/16/24 History tizanidine 4 mg capsule 4 mg PO TID PRN muscle spasm 08/22/23 06/16/24 06/15/24 History tramadol 50 mg tablet 100 mg PO Q6H PRN pain 08/22/23 06/16/24 06/16/24 04:30 History trazodone 100 mg tablet 200 mg PO BEDTIME PRN Insomnia 08/22/23 06/16/24 Unknown History cyanocobalamin (vitamin B-12) 1,000 mcg PO DAILY 06/01/24 06/16/24 06/14/24 History 1,000 mcg tablet,extended release (Vitamin B-12 ER) pregabalin 150 mg capsule 150 mg PO BID 06/02/24 06/16/24 06/16/24 History sertraline 25 mg tablet 25 mg PO DAILY 06/02/24 06/16/24 06/16/24 History Exam Height,Weight and Vital Signs: Height 5 ft 4 in Weight 60.421 kg Last Vital Signs Pulse 69 06/02/24 10:23 Resp 17 06/02/24 10:23 BP 131/60 06/02/24 10:23 Pulse Ox 97 06/02/24 10:23 O2 Del Method Room Air 06/02/24 10:23 Vital Signs Temp Pulse Resp BP Pulse Ox O2 Del Method 06/16/24 06:17 98.0 F 69 16 148/68 H 100 Room Air Pertinent Lab Results Pertinent Lab Results: Lab Results 06/02/24 06/02/24 Range/Units 11:18 11:20 WBC 4.1 L (4.8-10.8) X10*3/uL RBC 3.75 L (4.20-5.50) X10*6/uL Hgb 11.6 L (12.0-16.0) g/dl Hct 35.0 L (37.0-47.0) % MCV 93.3 (80.0-98.0) fL MCH 30.9 (27.0-33.0) pg MCHC 33.1 (31.0-35.0) g/dl RDW 13.9 (11.0-16.0) % Plt Count 243 (160-400) X10*3/uL MPV 10.2 (9.4-12.3) fL Absolute Nucleated RBC 0.000 (0.0-0.012) X10*3/uL Nucleated RBC % (auto) 0.0 (0.0-0.2) /100WBC Sodium 141 (135-145) mmol/L Potassium 3.9 (3.3-5.1) mmol/L Chloride 104 (96-108) mmol/L Carbon Dioxide 30 H (22-29) mmol/L Anion Gap 11 L (12-20) BUN 15 (9-16) mg/dL Creatinine 0.86 (0.5-1.4) mg/dL Estim Creat Clear Calc 54.1 Estimated GFR > 60 Random Glucose 80 (60-115) mg/dL Calcium 9.3 (8.4-10.2) mg/dL Blood Type A Positive Antibody Screen NEGATIVE Airway Mallampati Class: II TM Dist: >3cm Neck ROM: Full Loose/Missing/Broken Teeth: No (Capped front upper teeth, molars) Heart: RRR Lungs: CTAB Assessment and Plan Assessment Anesthesia Assessment: Anesthesia Plan Discussed, PAT Visit and Chart Reviewed Final Anesthetic Review Family History of Problems with Anesthesia: No History of Problems with Anesthesia: No NPO: Yes ASA Class: II Final Preanesthetic Review: No Changes in Pt Med Stat, Meds/Allgs Chart Reviewed, Consent Obtained/Reviewed and Anes Risks/Benef Reviewed Patient Risk: Low Procedure Risk: Low Assessment/Block/Sedation in SS: Assess/Block/Sedation-SS Anesthetic Plan Anesthetic Plan: GA Disposition: Standard PACU and Inp. Admit - Standard Bed
[2024-06-02 11:55] LABS: Hemoglobin 11.6 g/dl (12.0-16.0); Mean Corpuscular HGB Conc 33.1 g/dl (31.0-35.0); Mean Corpuscular Hemoglobin 30.9 pg (27.0-33.0); Mean Corpuscular Volume 93.3 fL (80.0-98.0); Mean Platelet Volume 10.2 fL (9.4-12.3); Platelet Count 243 X10*3/uL (160-400); Red Blood Count 3.75 X10*6/uL (4.20-5.50); Red Cell Distribution Width 13.9 % (11.0-16.0); White Blood Count 4.1 X10*3/uL (4.8-10.8)
[2024-06-02 12:30] LABS: Anion Gap 11 (12-20); Blood Urea Nitrogen 15 mg/dL (9-16); Calcium 9.3 mg/dL (8.4-10.2); Carbon Dioxide 30 mmol/L (22-29); Chloride 104 mmol/L (96-108); Creatinine Clr Calc Pharmacy 54.1; Estimated Glomerular Filt Rate > 60; Glucose Random 80 mg/dL (60-115); Potassium 3.9 mmol/L (3.3-5.1); Sodium 141 mmol/L (135-145)
[2024-06-16] VITALS (25 sets, daily range): BP systolic 109–148; BP diastolic 51–75; PULSE 69–87; RESP 14–18; TEMP 36–36.7; O2SAT 94–100; BMI 23.0; BMI 24.9
--- NOTE | ~2024-06-16 | FL_ITS ---
EXAMINATION: XR FLUOROSCOPY WITH IMAGES CLINICAL INFORMATION: L4-S1 OLIF COMPARISON: Radiograph of lumbar spine from the same day and 04/02/2024 TECHNIQUE: Fluoroscopy Supervised By: Lali. Fluoroscopy Time: 1.58. Cumulative Dose: 64.494 mGy. DAP: 20.68 Gycm2. Images: 4. FINDINGS: L4-S1 OLIF placement FL/FL guidance in OR IMPRESSION: OLIF in place
--- NOTE | ~2024-06-16 | XR_ITS ---
EXAMINATION: XR LUMBOSACRAL SPINE CLINICAL INFORMATION: Interbody fusion COMPARISON: 04/02/2024 TECHNIQUE: Single view of lumbar spine in AP projection FINDINGS: Vertebral bodies are well aligned base on AP view and there are 2 interbody device is seen at the level of L5-S1 and L4-L5 XR/XR lumbar spine 1V IMPRESSION: 2 intervertebral devices are seen
[2024-06-16] MEDS: Gabapentin 300 MG CAPSULE PO ×3 (06:45→21:07)
[2024-06-16] MEDS: Lactated Ringers 1,000 ML 100 ML IVCONT (06:45)
[2024-06-16] MEDS: methocarbamoL 750 MG TABLET PO (06:45)
[2024-06-16] MEDS: vancomycin HCL 1,000 MG in 0.9 % Sodium Chloride 250 ML 270 MG IV ×2 (06:45→18:39)
--- NOTE | 2024-06-16 07:12 | MHC.SHP ---
Pre-Procedural Eval Section A - 24 Hr Update-Section A only Date of Service: 06/16/24 The patient is an INPATIENT: No Changes since office visit: No Cold of Flu in the past 2 weeks, No New Medical Problems and No Changes in Medication The patient has been examined within 24 hours of the surgical procedure. The History & Physical has been completed within 30 days and I have reviewed it.: No Section B - Complete if H&P > 30 days Chief Complaint: L4-S1 lumbar fusion Allergies: Allergies Allergy/AdvReac Type Severity Reaction Status Date / Time Penicillins AdvReac Unknown Patient Verified 06/16/24 06:06 doesn't recall being allergic Review of Systems Sugical H&P ROS: Negative: Constitution, Cardiovascular, Respiratory, Neurological, Psychiatric, Hem-Onc, Allergic/Immunologic, Gastrointestinal, Genitourinary, Musculoskeletal, Integumentary, Endocrine and Eyes/Ears/Nose/Throat Exam Surgical H&P Exam: Not Evaluated: HEENT, Not Evaluated: Heart, Not Evaluated: Lungs, Not Evaluated: Extremities, Not Evaluated: Abdomen, Not Evaluated: Skin and Not Evaluated: Neurological Exam Comment: Ashley presents as A&OX4. She is in NAD. She has no obvious signs of recent injury or previous surgery near proposed surgical site. She has no abdominal tenderness. Plan Diagnosis/Plan: Unchanged I have reviewed the history and physical and performed a pertinent physical examination on my patient. No changes have occurred unless specified. Plan remains the same, L4-S1 ALIF / OLIF. Time Spent With Patient Time: Total time managing care of this patient today _10___ minutes.
--- NOTE | 2024-06-16 10:13 | P.OP_ITS ---
Operative Note Operative Note Date of Service: 06/16/24 Narrative: Procedure: Anterior exposure for Corpectomy and inter-body fusion L4-S1 The patient was brought to the operating room, positioned on the table supine and general anesthesia was administered. The abdomen was clipped and then prepped and draped in the usual sterile fashion. After timeout was done, incision was made in the infraumbilical area just to the left of the midline 7 cm long. It was brought through subcutaneous tissue and the left anterior rectus sheath in line with the skinincision . The pre- peritoneal plane was entered, peritoneum was bluntly dissected off and iliac artery pulse was felt. Self-retaining retractor with two deep blades was inserted and peritoneum protected with moist gauzes. Left internal iliac vein was identified and dissection was carried along the medial surface of the iliac vein up to the bifurcation. The middle sacral vessels were transected and L5-S1 disc space was bluntly and sharply dissected using bipolar cautery staying directly on the surface of the spine. The midline of the disk space was marked with C-arm image guide. Left common iliac artery was then dissected from lateral to medial, there was no branches, vein was out of the way. L4-L5 disk space was dissected in midline was marked. There was no ilio-lumbar vein present there. Dr. Escalera then proceeded with the corpectomy and fusion at 2 levels, which will be dictated separately by him. After this was done, hemostasis was checked and was excellent. Left ureter was examined prior to closure and was intact. There was good left external iliac artery pulse. Diluted 0.5% Marcaine and Lidocaine was injected in the fascia and subcutaneous tissue. The incision was irrigated and closed by layers using a 2-0 Vicryl for transverse fascia, 0 Maxone for the external oblique, 3-0 Vicryl for subcutaneous tissue and 4-0 Monocryl for skin. Exo-fin glue was then applied.
--- NOTE | 2024-06-16 11:49 | P.OP_ITS ---
Operative Note Operative Note Date of Service: 06/16/24 Narrative: Preoperative Diagnosis: 1.) L4-5 lumbar spondylolisthesis 2) Lumbar degenerative disc disease L5-S1 3) Lumbar radiculopathy and back pain Procedure: L4-5, L5-S1 discectomy, arthrodesis and implantation cage through an anterior lumbar approach (ALIF) ; anterior instrumentation L4-S1; L4-S1 posterolateral instrumented fusion; allograft Consent Informed Consent was obtained for this operation. I have explained the nature, purpose and benefits of the operation. I have discussed the risks and benefit of the operation including possible complications or adverse events with patient/family. Alternative(s) were discussed with the patient with their relative benefits and risks as well as the consequences of not accepting the operation were included in obtaining consent. Surgeon: STONE ARCOS MD, PHD Procedure Assisted By: MAXIMINO MARTINO MD and RK Reagan Description of Procedure This 69-year-old female is suffering from back pain and bilateral leg pain due to an L4-5 spondylolisthesis and L5-S1 degenerative disc disease with severe left L5 foraminal stenosis.. The patient was offered an anterior lumbar interbody fusion L4-5 and L5-S1 with anterior L4-S1 instrumentation and posterolateral L4-S1 instrumented fusion. The procedure complications were explained. The patient was consented. The patient was brought to the operating room and endotracheally intubated. The patient was put in a supine position. Prep and drape was done followed by timeout. Dr. Martino, co-surgeon, provided the access to the L4-L5 and L5-S1 disc space through an anterior approach. He was assisted by physician nursing home assistant administrator who performed manual retraction. He will dictate the approach in a separate operative note. When the disc spaces exposed I took over the procedure. We started with the L4-5 disc space. An annulotomy was done followed by a partial discectomy. Sequential trial implants were inserted and advanced towards the posterior wall of the disc space. I completed the discectomy and prepare the endplates. Then a 34 x 26 x 30 and 8 degree lordosis Astura cage filled with allograft was inserted into the disc space, which led to reduction of the spondylolisthesis. Then attention was turned to the L5-S1 disc space. Again a complete diskectomy was done followed by endplate preparation after which a 34 x 26 x 13 and 15 degree lordosis cage was inserted under fluoroscopic guidance. Anterior instrumentation was added to secure the implants in the form of 2 nails in the body of L5 and S1. Final x-rays showed good position of the interbody devices and anterior instrumentation. The retractor was removed and hemostasis was done by Dr. Ovalle who closed the incision. This marked first part of the procedure. Accordingly the patient was turned prone on the [place] spine table and 2 C arms were installed for fluoroscopy. Prep and drape was done followed by a second timeout. 2 paramedian incisions were made lateral from the L4-S1 pedicles. The muscle fascia was opened and the musculature was split bluntly to expose the posterolateral gutter. The following steps were taken for pedicle screw placement: The pediguard tap was used to create a transpedicular trajectory into the vertebral body. A K wire was advanced. A specially designed instrument was advanced over the K wire to decorticate the posterolateral gutter. Pedicle screw was advanced after which the K wire was removed. Following these steps pedicle screws were placed in the bilateral L4, L5 and S1 pedicles. Total of 6 screws were placed with the following measurements: 6.5 by 45 mm screws in the bilateral L4 and L5 pedicles and 6.5 x 40 mm in the bilateral S1 pedicles. It was noted that this patient is suffering from osteoporosis. A 60 mm dimple was tunneled bilaterally and locked down with locking caps. The right L5 screw partially pulled out and was replaced by a 7.5 x 50 mm screw but again during locking of the rods this screw also partially came out. This was clearly related to the poor bone quality and therefore no further changes were made. The extension towers were removed. The posterolateral fusion was completed by laying down allograft in the posterolateral gutter. Hemostasis was done. The paramedian incisions were closed with an 0 Vicryl to fascia and 3-0 Vicryl to subdermal layer. Steri-Strips were used to approximate the incision. An OpSite with Tegaderm was used to cover the incisions. All sponge and needle counts were correct. The patient was extubated and transported in stable condition to recovery room. The physician nursing home assistant administrator was critical for the following aspects of surgery int erpretation of x-rays, partial placement of pedicle screws and closure of the paramedian incisions. Anesthesia: General Estimated Blood Loss (ml): 100 ml Duration of Surgery: 3 hours and 40 minutes Complications: None Postoperative Plan: Admit to inpatient for observation
[2024-06-16] MEDS: HYDROmorphone HCl 0.5 MG/0.5 ML SYRINGE 0.25 MG IVPUSH ×8 (12:16→13:14)
[2024-06-16] MEDS: oxyCODONE HCl Immed Release 5 MG TABLET PO (13:19)
--- NOTE | 2024-06-16 15:26 | PHA.MEDREC ---
Addendum entered by Hang Willett 06/16/24 16:39: Med rec verified Original Note: Pharmacy Consult ? Medication Reconciliation Pharmacy has reviewed the medication reconciliation done by nursing. Spoke to patient to confirm medications. Patient states she is not on Diclofenac sodium 75 mg bid. patient also states she hasn't started Memantine 7 mg daily.
[2024-06-16] MEDS: Acetaminophen 325 MG TABLET 975 MG PO ×2 (16:16→21:08)
[2024-06-16] MEDS: busPIRone HCl 5 MG TABLET 15 MG PO ×2 (16:17→21:06)
[2024-06-16] MEDS: HYDROmorphone HCl 1 MG/ML SYRINGE IVPUSH ×2 (16:17→20:17)
[2024-06-16] MEDS: Ketorolac Tromethamine 15 MG/ML VIAL IVPUSH ×2 (17:00→21:09)
[2024-06-16] MEDS: traZODone HCL 100 MG TABLET 200 MG PO (21:07)
[2024-06-16] MEDS: Docusate Sodium 100 MG CAPSULE PO (21:07)
[2024-06-16] MEDS: Pregabalin 150 MG CAPSULE PO (21:07)
[2024-06-17 03:17] VITALS: BP 121/56; PULSE 81; RESP 18; TEMP 37.1; O2SAT 96
[2024-06-17] MEDS: Acetaminophen 325 MG TABLET 975 MG PO ×4 (03:19→19:17)
[2024-06-17] MEDS: HYDROmorphone HCl 1 MG/ML SYRINGE IVPUSH ×3 (03:24→11:39)
[2024-06-17] MEDS: Ketorolac Tromethamine 15 MG/ML VIAL IVPUSH ×3 (06:01→20:57)
[2024-06-17 07:17] VITALS: BP 107/54; PULSE 73; RESP 16; TEMP 36.4; O2SAT 94
--- NOTE | 2024-06-17 07:30 | HO.NEURO.PN ---
Neurosurgery Operative Note Date of Service: 06/17/24 Narrative: L4-5, L5-S1 anterior lumbar interbody fusion postop day 1. Patient reports significant back pain, difficulty rolling over in bed. She has been up to stand walk to the bathroom. She is voiding okay. Tolerating diet okay. She has not seen physical therapy yet. Afebrile, vital signs stable Physical exam: Patient is awake alert oriented no acute distress, abdomen mildly distended, no rebound tenderness or guarding, strength in bilateral lower extremities is full. Midline abdominal incision has Steri-Strips in place, back dressing from the operating room still in place, is clean and dry no signs of hematoma. Impression: Status post L4-5, L5-S1 anterior lumbar interbody fusion postop day 1., clinically doing okay she is neurologically intact. She is tolerating diet and voiding okay. The main issue right now she is having a lot of pain standing walking. Not sure if she will go home today or tomorrow. We will see how she does with PT later today. Patient seen at bedside with Dr. Escalera.
[2024-06-17] MEDS: Pregabalin 150 MG CAPSULE PO ×2 (08:29→19:17)
[2024-06-17] MEDS: Sertraline HCL 25 MG TABLET PO (08:29)
[2024-06-17] MEDS: Cyanocobalamin (Vitamin B-12) 1,000 MCG TABLET 1000 MCG PO (08:29)
[2024-06-17] MEDS: Gabapentin 300 MG CAPSULE PO ×3 (08:29→19:17)
[2024-06-17] MEDS: busPIRone HCl 5 MG TABLET 15 MG PO ×3 (08:29→19:17)
[2024-06-17] MEDS: Loratadine 10 MG TABLET PO (08:29)
[2024-06-17] MEDS: oxyCODONE HCl Immed Release 5 MG TABLET PO (08:30)
[2024-06-17] MEDS: Docusate Sodium 100 MG CAPSULE PO ×2 (08:30→19:17)
[2024-06-17] MEDS: oxyCODONE HCl Immed Release 5 MG TABLET 10 MG PO ×3 (09:34→19:16)
--- NOTE | 2024-06-17 09:35 | MHC.CM.PN ---
Patient Lives with spouse. She is independent with all functional mobility. A copy of her HCP has been requested. DP home self care family transport.
[2024-06-17 09:39] VITALS: O2SAT 98
--- NOTE | 2024-06-17 09:46 | HO.POSTANES ---
Post Anesthesia Evaluation Post Anesthesia Evaluation Date of Service: 06/16/24 Vital Signs: Vital Signs Temp Pulse Resp BP Pulse Ox O2 Del Method 06/17/24 09:39 98 Room Air 06/17/24 07:17 97.6 F 73 16 107/54 L 94 Room Air 06/17/24 03:17 98.7 F 81 18 121/56 L 96 Room Air Anesthesia: General Mental Status: Awake Nausea/Vomiting: None Hydration: Adequate Anesthesia-Related Issues: No Anes. Related Issues
[2024-06-17 15:25] VITALS: BP 96/55; PULSE 75; RESP 18; TEMP 36.6; O2SAT 94
[2024-06-17 19:27] VITALS: BP 107/55; PULSE 77; RESP 18; TEMP 36.6; O2SAT 98
[2024-06-17] MEDS: traZODone HCL 100 MG TABLET 200 MG PO (20:41)
[2024-06-17] MEDS: Ipratropium Bromide Nas 0.06 % 15 ML SPRAY 2 SPRAY NOSTRIL-B (21:25)
[2024-06-18] MEDS: oxyCODONE HCl Immed Release 5 MG TABLET 10 MG PO ×3 (01:02→12:34)
[2024-06-18] MEDS: Acetaminophen 325 MG TABLET 975 MG PO ×2 (01:03→08:48)
[2024-06-18 03:56] VITALS: BP 140/63; PULSE 77; RESP 18; TEMP 36.7; O2SAT 98
[2024-06-18] MEDS: Ketorolac Tromethamine 15 MG/ML VIAL IVPUSH (06:19)
[2024-06-18 07:18] VITALS: BP 101/51; PULSE 84; RESP 16; TEMP 36.1; O2SAT 94
[2024-06-18] MEDS: oxyCODONE HCl Immed Release 5 MG TABLET PO (08:47)
[2024-06-18] MEDS: Pregabalin 150 MG CAPSULE PO (08:47)
[2024-06-18] MEDS: Ipratropium Bromide Nas 0.06 % 15 ML SPRAY 2 SPRAY NOSTRIL-B (08:47)
[2024-06-18] MEDS: busPIRone HCl 5 MG TABLET 15 MG PO (08:48)
[2024-06-18] MEDS: Sertraline HCL 25 MG TABLET PO (08:48)
[2024-06-18] MEDS: Loratadine 10 MG TABLET PO (08:48)
[2024-06-18] MEDS: Docusate Sodium 100 MG CAPSULE PO (08:48)
[2024-06-18] MEDS: Gabapentin 300 MG CAPSULE PO (08:49)
[2024-06-18] MEDS: Cyanocobalamin (Vitamin B-12) 1,000 MCG TABLET 1000 MCG PO (08:49)
[2024-06-18 09:00] VITALS: O2SAT 97
--- NOTE | 2024-06-18 09:07 | HO.NEURO.PN ---
Neurosurgery Operative Note Date of Service: 06/18/24 Narrative: Postop day 2 L4-5, L5-S1 anterior lumbar interbody fusion Patient clinically doing well, up walking the hallways with physical therapy this morning. She did have have some pain overnight but it seems more manageable this morning. No tingling or numbness in her legs. She is voiding okay and tolerating a diet. Afebrile, vital signs are stable Physical exam: Patient seen in the hallways when she is walking with physical therapy. Strength is grossly normal in the lower extremities, abdomen is soft nondistended nontender, back dressings are still the original from the operating room, these are clean and dry no signs of underlying bleeding. Midline abdominal incision clean and dry. Impression: Postop day 2 L4-5, L5-S1 anterior lumbar interbody fusion, patient clinically doing okay, up walking the hallways with PT. The plan will be to discharge her home today. I will update Dr. Escalera in the patient's status.
[2024-06-18 09:08] VITALS: BP 101/51; PULSE 84; O2SAT 94
--- NOTE | 2024-06-18 09:09 | P.DS_ITS ---
DS: Providers Provider Date of Service: 06/16/24 Date of admission: 06/16/24 06:01 Date of discharge: 06/18/24 Primary care physician: Diana Guzman NP Admitting clinician: Syd Escalera DS: Diagnosis Discharge Diagnosis (1) Disc disease, degenerative, lumbar or lumbosacral: Status: Acute DS: Summary Hospital Course Hospital Course: Patient was admitted for elective surgery, she underwent procedure without c omplication. She is brought to the PACU then up to the [address] [place] [address]. Her diet was advanced without issue. She was voiding okay through her 1st postoperative night without issues. Subsequently on postop day 1., she seemed to be doing okay but pain control was a bit of an issue. She wanted to stay another day. Physical therapy saw her and she is slow to get up so we kept her another night. By postoperative day 2. She is up walking the hallways basically independent with physical therapy at her side. She was eating voiding in her pain control was under reasonably good control so we will discharge her home today on postoperative day 2. Condition on discharge she is afebrile, vital signs stable, awake alert oriented strength is full, abdomen soft nondistended nontender, vac dressing is in place, no signs of hematoma. Patient given full discharge instructions and activity guidelines. Time Attestation Discharge Coordination Time (in mins): 5 Quality: Safe Use of Opioids Does Pt have an Active Cancer Diagnosis on the Problem List?: No Quality: Stroke Does the patient have a stroke diagnosis?: No Physical Exam Vital Signs: Vital Signs: Last Vital Signs Temp 97.0 F 06/18/24 07:18 Pulse 84 06/18/24 07:18 Resp 16 06/18/24 07:18 BP 101/51 L 06/18/24 07:18 Pulse Ox 94 06/18/24 07:18 O2 Del Method Room Air 06/18/24 07:18 O2 Flow Rate 2 06/16/24 13:39 BMI result Body Mass Index 24.9 Discharge Plan Discharge Anticipated Discharge Date/Time: 06/18/24 09:11 Patient Disposition: Home, Self-Care Discharge Diagnosis: Lumbar degenerative disc disease Referrals: Diana Guzman NP [Primary Care Provider] - 1 Week Discharge Medications: New docusate sodium [Colace] 100 mg capsule 100 mg PO BID Qty: 20 0RF oxycodone 5 mg tablet See Rx Instructions .ROUTE .COMPLEX PRN (Reason: pain) Qty: 40 0RF Rx Instructions: 1-2 tablets p.o. q.4 hours p.r.n. pain; Partial Fill upon patient request. ibuprofen 800 mg tablet 800 mg PO Q8H PRN (Reason: pain) Qty: 60 2RF Continued tramadol 50 mg tablet 100 mg PO Q6H PRN (Reason: pain) trazodone 100 mg tablet 200 mg PO BEDTIME PRN (Reason: Insomnia) clobetasol 0.05 % ointment 1 appl topical 2XW PRN (Reason: as directed) estradiol 0.01 % (0.1 mg/gram) cream 1 g vaginal 3XW PRN (Reason: as directed) ipratropium bromide 42 mcg (0.06 %) spray,non-aerosol 2 spray intranasal TID loratadine 10 mg tablet 10 mg PO DAILY buspirone 15 mg tablet 15 mg PO TID tizanidine 4 mg capsule 4 mg PO TID PRN (Reason: muscle spasm) diclofenac sodium 1 % gel 2 g topical QID PRN (Reason: Pain) cyanocobalamin (vitamin B-12) [Vitamin B-12] 1,000 mcg Tablet Extended Release 1,000 mcg PO DAILY pregabalin 150 mg capsule 150 mg PO BID sertraline 25 mg tablet 25 mg PO DAILY acetaminophen 325 mg Tablet 650 mg PO DAILY PRN (Reason: Pain, Mild) Discharge Orders: Discharge Order (Routine); Ordered 06/18/24 Ordered By: Hernán Mohr Diet: Advance to usual diet Activity on Discharge: As tolerated Stand Alone Forms: Patient Portal Discharge page Print Language: Ugandan Activity Restrictions/Additional Instructions: After your spinal surgery we ask you to observe the following restrictions/guide lines: Activity: It is normal to feel some discomfort as you increase your activity, but that will improve with time. We ask you avoid heavy lifting or acitivities that cause pain. As a general rule, 8lbs is a safe limit for lifting right after surgery. Walk as much as you feel comfortable but not to exhaustion. You will feel extra tired the first few days after surgery. Stay well hydrated. It is OK to walk up and down stairs You may return to driving when you are off narcotics (such as vicodin, oxycodone, dilaudid, etc), and you are back to normal functional capacity. If you have any concerns please check with office before driving. Return to work is specific to each patient and each surgery, so please speak with your doctor/PA at first follow up. Please bring paperwork such as FMLA at that time if you need it filled out. Medications: For optimum pain control, it is best to start with a combination of 500 mg of Tylenol every 4 hours with 800 mg of Motrin every 8 hours, and use narcotics like oxycodone as needed in between for breakthrough pain. You can take the oxycodone every 4 hours as needed. We will give you a short supply of narcotics after surgery (usually one weeks worth). If you need more please call the office but do not use more than prescribed. You will need to give our office 48 hours notice if you need narcotics refilled and we do not fill narcotics on weekends or evenings. If you are on a narcotic, it is a good idea to take a stool softener such as colace or senna to avoid constipation If you take blood thinner such as aspirin, Plavix, Coumadin, Effient, Eliquis etc for conditions such as Afib, DVT, Pulmonary embolus, coronary disease, stents etc please speak with your surgeon about specific details as to when you can resume these medications. You can resume NSAIDs on post op day 1 (eg: Motrin, Naproxen, etc). Follow up: Please call the office, , after surgery to arrange a 3 week follow up for wound check. Wound Care: You may remove your dressing on the first day after surgery. ?You may ?leave open to air. Please do not remove the steri strips underneath. they will fall off on their own in one week. IT IS NORMAL FOR THE WOUND TO OOZE OR BE BLOODY FOR A FEW DAYS AFTER SURGERY. ?IF THIS HAPPENS JUST PLACE NEW DRESSING OVER IT TO AVOID STAINING CLOTHES. You may shower on post op day # 1 We ask that you do not let the water soak the wound. If it does get wet, just towel dry lightly. Please do not scrub your incision or place any type of chemical/ointment on the wound. No tub baths, pools or jacuzzis for one month. If you have any leaking or redness from your wound, or fevers, please call office Care Plan Goals: Discharge home Health Concerns: Recover from back surgery Plan of Treatment: Discharge home Assessment: Stable
--- NOTE | 2024-06-18 09:30 | P.F2F_ITS ---
Service Date Service Date: 06/18/24 Encounter Date of encounter: 06/18/24 Reasons for Services Signs and symptoms assessed: Status post lumbar fusion L4-5, L5-S1 Reason for long term: neurological assessment, wound care and postoperative assessment and/or care Reason for physical therapy: home safety and mobility, therapeutic exercises and gait/transfer training Homebound: Leaving the home is medically contraindicated at this time without the asist of a device and/or another person due th the listed conditions above and below. Reason homebound: unsteady gait / fall risk, leg weakness, pain with ambulation and pain with transfers Certification: Based on the above findings, I certify that this patient is confined to the home and needs intermittent long term care, physical therapy and/or speech therapy, or continues to need occupational therapy. The patient is under my care, and I have initiated the establishment of the plan of care. The patient will be followed by a physician who will periodically review the plan of care. Time Spent With Patient Time: Total time managing care of this patient today _5___ minutes.
--- NOTE | 2024-06-18 09:31 | P.DS_ITS ---
DS: Providers Provider Date of Service: 06/18/24 Date of admission: 06/16/24 06:01 Primary care physician: Diana Guzman NP DS: Diagnosis Discharge Diagnosis (1) Disc disease, degenerative, lumbar or lumbosacral: Status: Acute DS: Summary Hospital Course Hospital Course: Patient was admitted for elective surgery, she underwent procedure without complication. She is brought to the PACU then up to the [address] [place] [address]. Her diet was advanced without issue. She was voiding okay through her 1st postoperative night without issues. Subsequently on postop day 1., she seemed to be doing okay but pain control was a bit of an issue. She wanted to stay another day. Physical therapy saw her and she is slow to get up so we kept her another night. By postoperative day 2. She is up walking the hallways basically independent with physical therapy at her side. She was eating voiding in her pain control was under reasonably good control so we will discharge her home today on postoperative day 2. Condition on discharge she is afebrile, vital signs stable, awake alert oriented strength is full, abdomen soft nondistended nontender, vac dressing is in place, no signs of hematoma. Patient given full discharge instructions and activity guidelines. Time Attestation Discharge Coordination Time (in mins): 6 Quality: Safe Use of Opioids Does Pt have an Active Cancer Diagnosis on the Problem List?: No Quality: Stroke Does the patient have a stroke diagnosis?: No Physical Exam Vital Signs: Vital Signs: Last Vital Signs Temp 97.0 F 06/18/24 07:18 Pulse 84 06/18/24 09:08 Resp 16 06/18/24 07:18 BP 101/51 L 06/18/24 09:08 Pulse Ox 94 06/18/24 09:08 O2 Del Method Room Air 06/18/24 09:00 O2 Flow Rate 2 06/16/24 13:39 BMI result Body Mass Index 24.9 Discharge Plan Discharge Anticipated Discharge Date/Time: 06/18/24 09:11 Patient Disposition: Home Health Service Discharge Diagnosis: Lumbar degenerative disc disease Referrals: Diana Guzman NP [Primary Care Provider] - 1 Week Discharge Medications: New docusate sodium [Colace] 100 mg capsule 100 mg PO BID Qty: 20 0RF oxycodone 5 mg tablet See Rx Instructions .ROUTE .COMPLEX PRN (Reason: pain) Qty: 40 0RF Rx Instructions: 1-2 tablets p.o. q.4 hours p.r.n. pain; Partial Fill upon patient request. ibuprofen 800 mg tablet 800 mg PO Q8H PRN (Reason: pain) Qty: 60 2RF Continued tramadol 50 mg tablet 100 mg PO Q6H PRN (Reason: pain) trazodone 100 mg tablet 200 mg PO BEDTIME PRN (Reason: Insomnia) clobetasol 0.05 % ointment 1 appl topical 2XW PRN (Reason: as directed) estradiol 0.01 % (0.1 mg/gram) cream 1 g vaginal 3XW PRN (Reason: as directed) ipratropium bromide 42 mcg (0.06 %) spray,non-aerosol 2 spray intranasal TID loratadine 10 mg tablet 10 mg PO DAILY buspirone 15 mg tablet 15 mg PO TID tizanidine 4 mg capsule 4 mg PO TID PRN (Reason: muscle spasm) diclofenac sodium 1 % gel 2 g topical QID PRN (Reason: Pain) cyanocobalamin (vitamin B-12) [Vitamin B-12] 1,000 mcg Tablet Extended Release 1,000 mcg PO DAILY pregabalin 150 mg capsule 150 mg PO BID sertraline 25 mg tablet 25 mg PO DAILY acetaminophen 325 mg Tablet 650 mg PO DAILY PRN (Reason: Pain, Mild) Discharge Orders: Discharge Order (Routine); Ordered 06/18/24 Ordered By: Hernán Mohr Diet: Advance to usual diet Activity on Discharge: As tolerated Stand Alone Forms: Patient Portal Discharge page Print Language: Tuvaluan Activity Restrictions/Additional Instructions: After your spinal surgery we ask you to observe the following restrictions/guidelines: Activity: It is normal to feel some discomfort as you increase your activity, but that will improve with time. We ask you avoid heavy lifting or acitivities that cause pain. As a general rule, 8lbs is a safe limit for lifting right after surgery. Walk as much as you feel comfortable but not to exhaustion. You will feel extra tired the first few days after surgery. Stay well hydrated. It is OK to walk up and down stairs You may return to driving when you are off narcotics (such as vicodin, oxycodone, dilaudid, etc), and you are back to normal functional capacity. If you have any concerns please check with office before driving. Return to work is specific to each patient and each surgery, so please speak with your doctor/PA at first follow up. Please bring paperwork such as FMLA at that time if you need it filled out. Medications: For optimum pain control, it is best to start with a combination of 500 mg of Tylenol every 4 hours with 800 mg of Motrin every 8 hours, and use narcotics like oxycodone as needed in between for breakthrough pain. You can take the oxycodone every 4 hours as needed. We will give you a short supply of narcotics after surgery (usually one weeks worth). If you need more please call the office but do not use more than prescribed. You will need to give our office 48 hours notice if you need narcotics refilled and we do not fill narcotics on weekends or evenings. If you are on a narcotic, it is a good idea to take a stool softener such as colace or senna to avoid constipation If you take blood thinner such as aspirin, Plavix, Coumadin, Effient, Eliquis etc for conditions such as Afib, DVT, Pulmonary embolus, coronary disease, stents etc please speak with your surgeon about specific details as to when you can resume these medications. You can resume NSAIDs on post op day 1 (eg: Motrin, Naproxen, etc). Follow up: Please call the office, , after surgery to arrange a 3 week follow up for wound check. Wound Care: You may remove your dressing on the first day after surgery. ?You may ?leave open to air. Please do not remove the steri strips underneath. they will fall off on their own in one week. IT IS NORMAL FOR THE WOUND TO OOZE OR BE BLOODY FOR A FEW DAYS AFTER SURGERY. ?IF THIS HAPPENS JUST PLACE NEW DRESSING OVER IT TO AVOID STAINING CLOTHES. You may shower on post op day # 1 We ask that you do not let the water soak the wound. If it does get wet, just towel dry lightly. Please do not scrub your incision or place any type of chemical/ointment on the wound. No tub baths, pools or jacuzzis for one month. If you have any leaking or redness from your wound, or fevers, please call office Care Plan Goals: Discharge home Health Concerns: Recover from back surgery Plan of Treatment: Discharge home Assessment: Stable
--- NOTE | 2024-06-18 10:01 | PM.DS ---
DS: Providers Provider Date of Service: 06/18/24 Date of admission: 06/16/24 06:01 Primary care physician: Diana Guzman NP DS: Diagnosis Discharge Diagnosis (1) Disc disease, degenerative, lumbar or lumbosacral: Status: Acute DS: Summary Hospital Course Hospital Course: Patient was admitted for elective surgery, she underwent procedure without complication. She is brought to the PACU then up to the [address] [place] [address]. Her diet was advanced without issue. She was voiding okay through her 1st postoperative night without issues. Subsequently on postop day 1., she seemed to be doing okay but pain control was a bit of an issue. She wanted to stay another day. Physical therapy saw her and she is slow to get up so we kept her another night. By postoperative day 2. She is up walking the hallways basically independent with physical therapy at her side. She was eating voiding in her pain control was under reasonably good control so we will discharge her home today on postoperative day 2. Condition on discharge she is afebrile, vital signs stable, awake alert oriented strength is full, abdomen soft nondistended nontender, vac dressing is in place, no signs of hematoma. Patient given full discharge instructions and activity guidelines. Time Attestation Discharge Coordination Time (in mins): 7 Quality: Safe Use of Opioids Does Pt have an Active Cancer Diagnosis on the Problem List?: No Quality: Stroke Does the patient have a stroke diagnosis?: No Physical Exam Vital Signs: Vital Signs: Last Vital Signs Temp 97.0 F 06/18/24 07:18 Pulse 84 06/18/24 09:08 Resp 16 06/18/24 07:18 BP 101/51 L 06/18/24 09:08 Pulse Ox 94 06/18/24 09:08 O2 Del Method Room Air 06/18/24 09:00 O2 Flow Rate 2 06/16/24 13:39 BMI result Body Mass Index 24.9 Discharge Plan Discharge Anticipated Discharge Date/Time: 06/18/24 09:11 Patient Disposition: Home Health Service Discharge Diagnosis: Lumbar degenerative disc disease Referrals: Diana Guzman NP [Primary Care Provider] - 1 Week Discharge Medications: New docusate sodium [Colace] 100 mg capsule 100 mg PO BID Qty: 20 0RF ibuprofen 800 mg tablet 800 mg PO Q8H PRN (Reason: pain) Qty: 60 2RF oxycodone-acetaminophen [Percocet] 5-325 mg tablet 1 tab PO Q4H PRN (Reason: pain) Qty: 40 0RF Rx Instructions: 1-2 tabs po q4 hours prn pain; Partial Fill upon patient request. Continued tramadol 50 mg tablet 100 mg PO Q6H PRN (Reason: pain) trazodone 100 mg tablet 200 mg PO BEDTIME PRN (Reason: Insomnia) clobetasol 0.05 % ointment 1 appl topical 2XW PRN (Reason: as directed) estradiol 0.01 % (0.1 mg/gram) cream 1 g vaginal 3XW PRN (Reason: as directed) ipratropium bromide 42 mcg (0.06 %) spray,non-aerosol 2 spray intranasal TID loratadine 10 mg tablet 10 mg PO DAILY buspirone 15 mg tablet 15 mg PO TID tizanidine 4 mg capsule 4 mg PO TID PRN (Reason: muscle spasm) diclofenac sodium 1 % gel 2 g topical QID PRN (Reason: Pain) cyanocobalamin (vitamin B-12) [Vitamin B-12] 1,000 mcg Tablet Extended Release 1,000 mcg PO DAILY pregabalin 150 mg capsule 150 mg PO BID sertraline 25 mg tablet 25 mg PO DAILY acetaminophen 325 mg Tablet 650 mg PO DAILY PRN (Reason: Pain, Mild) Discharge Orders: Discharge Order (Routine); Ordered 06/18/24 Ordered By: Hernán Mohr Diet: Advance to usual diet Activity on Discharge: As tolerated Stand Alone Forms: Patient Portal Discharge page Print Language: Mongolian Activity Restrictions/Additional Instructions: After your spinal surgery we ask you to observe the following restrictions/guidelines: Activity: It is normal to feel some discomfort as you increase your activity, but that will improve with time. We ask you avoid heavy lifting or acitivities that cause pain. As a general rule, 8lbs is a safe limit for lifting right after surgery. Walk as much as you feel comfortable but not to exhaustion. You will feel extra tired the first few days after surgery. Stay well hydrated. It is OK to walk up and down stairs You may return to driving when you are off narcotics (such as vicodin, oxycodone, dilaudid, etc), and you are back to normal functional capacity. If you have any concerns please check with office before driving. Return to work is specific to each patient and each surgery, so please speak with your doctor/PA at first follow up. Please bring paperwork such as FMLA at that time if you need it filled out. Medications: Motrin every 8 hours. Your insurance would not approve plain oxycodone, so I had to prescribe you Percocet which has Tylenol in it. You can take 1-2 of those tablets every 4 hours as needed. Please do not take supplemental Tylenol if you are taking the Percocet. We will give you a short supply of narcotics after surgery (usually one weeks worth). If you need more please call the office but do not use more than prescribed. You will need to give our office 48 hours notice if you need narcotics refilled and we do not fill narcotics on weekends or evenings. If you are on a narcotic, it is a good idea to take a stool softener such as colace or senna to avoid constipation If you take blood thinner such as aspirin, Plavix, Coumadin, Effient, Eliquis etc for conditions such as Afib, DVT, Pulmonary embolus, coronary disease, stents etc please speak with your surgeon about specific details as to when you can resume these medications. You can resume NSAIDs on post op day 1 (eg: Motrin, Naproxen, etc). Follow up: Please call the office, , after surgery to arrange a 3 week follow up for wound check. Wound Care: You may remove your dressing on the first day after surgery. ?You may ?leave open to air. Please do not remove the steri strips underneath. they will fall off on their own in one week. IT IS NORMAL FOR THE WOUND TO OOZE OR BE BLOODY FOR A FEW DAYS AFTER SURGERY. ?IF THIS HAPPENS JUST PLACE NEW DRESSING OVER IT TO AVOID STAINING CLOTHES. You may shower on post op day # 1 We ask that you do not let the water soak the wound. If it does get wet, just towel dry lightly. Please do not scrub your incision or place any type of chemical/ointment on the wound. No tub baths, pools or jacuzzis for one month. If you have any leaking or redness from your wound, or fevers, please call office Care Plan Goals: Discharge home Health Concerns: Recover from back surgery Plan of Treatment: Discharge home Assessment: Stable
--- NOTE | 2024-06-18 11:09 | MHC.CM.PN ---
PT WILL DC HOME TODAY WITH [facility] FOR PT AND SN PT TO ARRANGE TRANSPORT
== END 2024-06-18 13:40 | disposition home health service (06) | DRG 460 ==
LOC: HO.SSS 06:01 → HO.SSSA 06:06 → HO.S3 14:18
PROVIDERS: Nurse Practitioner; Admitting Provider Physician Assistant; PCP Nurse Practitioner Adult Health; Visit Provider Neurological Surgery
PROC: 0SG00A0 Fusion of Lumbar Vertebral Joint with Interbody Fusion Device, Anterior Approach, Anterior Column, Open Approach (ICD-10-PCS; principal; 2024-06-16 07:30)
DX: M51.37 Other intervertebral disc degeneration, lumbosacral region (principal); M51.36 Other intervertebral disc degeneration, lumbar region; Z79.899 Other long term (current) drug therapy
CPT/HCPCS: 36415; 72020; 80048; 85027; 86850; 86900; 86901; 93005; 97116; 97162; C1713; J0131; J1100; J1170; J1885; J2250; J2405; J2704; J3010; J3370; L8699

== ENCOUNTER → 2024-06-16 06:01 | Outpatient (BNV) | payer OTHER, SELFPAY | PROVIDERS: Admitting Provider Physician Assistant; PCP Nurse Practitioner Adult Health; Visit Provider Surgery | DX: M51.37 Other intervertebral disc degeneration, lumbosacral region (principal); M47.26 Other spondylosis with radiculopathy, lumbar region | CPT/HCPCS: 20930; 22558; 22585; 22612; 22614; 22840; 22853; 99024; 99499; G0180 ==

== ENCOUNTER 2024-07-08 10:43 | Outpatient (REF) | payer OTHER, MEDICARE, SELFPAY | END 2024-07-08 10:44 | disposition home or self-care (01) | LOC: HO.HOSX 10:43 | PROVIDERS: PCP Nurse Practitioner Adult Health; Visit Provider Physician Assistant | DX: Z13.89 Encounter for screening for other disorder (principal) ==

== ENCOUNTER 2024-07-08 10:43 | Outpatient (AMB) | payer OTHER, MEDICARE, SELFPAY ==
--- NOTE | 2024-07-08 10:45 | HO.SPINEOV ---
Intake Visit Reasons: 1st post op Intake Note: Ms. Montenegro is here today for her 1st post-op visit. 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 She has still been dealing with back discomfort and some tingling and swelling in her feet. Primarily it is when she has been up moving around or toward the end of the day. She has been taking ibuprofen and oxycodone as needed. Her abdominal wound is healed up beautifully. Her back wounds have small amount of scabbing but otherwise healed up nicely. We discussed activity guidelines, restrictions and expectations after lumbar fusion. I filled out paperwork for her that gives her a full 3 months out from work letting her return on 09/16/2024. As a refilled her Percocet. I will see her back in 4-5 weeks with an x-ray. Hernán Escalera MD, PhD [facility] Orders: Orders XR lumbar spine 4V min Today M51.37 - Other intervertebral disc degeneration, lumbosacral region Medications: Refilled oxycodone-acetaminophen 5-325 mg (Percocet) 1-2 tabs po q4 hours prn pain; Partial Fill upon patient request. 1 tab PO Q4H PRN 40 tabs 0RF pain Coding Level of Care Code Global (64198) Diagnoses Disc disease, degenerative, lumbar or lumbosacral M51.37
== END 2024-07-08 11:17 | disposition home or self-care (01) ==
PROVIDERS: PCP Nurse Practitioner Adult Health; Visit Provider Physician Assistant
DX: M51.37 Other intervertebral disc degeneration, lumbosacral region (principal)
CPT/HCPCS: 99024

== ENCOUNTER 2024-08-05 13:44 | Outpatient (REF) | payer OTHER, MEDICARE, SELFPAY | END 2024-08-05 13:45 | disposition home or self-care (01) | LOC: HO.HOSX 13:44 | PROVIDERS: Visit Provider Physician Assistant | DX: M51.370 Other intervertebral disc degeneration, lumbosacral region with discogenic back pain only (principal) | CPT/HCPCS: 72110 ==

== ENCOUNTER 2024-08-05 13:46 | Outpatient (AMB) | payer OTHER, MEDICARE, SELFPAY ==
--- NOTE | 2024-08-05 13:47 | HO.SPINEOV ---
Intake Visit Reasons: 2nd post op xray Intake Note: Ms. Montenegro is here today for her 2nd post-op with xray appointment. 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 Unfortunately she has seen no improvement in her back pain or the pain radiating down her legs that she had before surgery. It feels exactly like it did before surgery. She is continuing to take tramadol. If the pain gets bad she just sits down. I reviewed her x-rays here today and the hardware appears to be in stable position. I do not see any significant movement with flexion or extension. It was noted during the operation that she had poor bone quality and needed 1 of the screws replaced with 7.5 mm screw and even with the locking down of the rods at the end of the operation there was loose contact within the body of L5 with the L5 pedicle screw. I would like to check a CT scan to rule out pseudoarthrosis because of this history. I will call her with the results of the CT. Hernán Escalera MD, PhD [facility] Orders: Orders CT lumbar spine wo IV con Today M43.16 - Spondylolisthesis, lumbar region Coding Level of Care Code Global (70945) Diagnoses Disc disease, degenerative, lumbar or lumbosacral M51.37
== END 2024-08-05 14:36 | disposition home or self-care (01) ==
PROVIDERS: PCP Nurse Practitioner Adult Health; Visit Provider Physician Assistant
DX: M51.370 Other intervertebral disc degeneration, lumbosacral region with discogenic back pain only (principal)
CPT/HCPCS: 99024

== ENCOUNTER 2024-08-25 08:29 | Outpatient (REF) | payer OTHER, SELFPAY ==
--- NOTE | ~2024-08-25 | CT_ITS ---
EXAMINATION: CT LUMBAR SPINE WITHOUT CONTRAST CLINICAL INFORMATION: Spondylolisthesis, lumbar region COMPARISON: MR lumbar spine on 11/25/2023 TECHNIQUE: Multidetector CT acquisitions of the lumbar spine without administration of intravenous contrast. This CT examination was performed using dose optimization techniques as appropriate, variously including the following: *Automated exposure control *Adjustment of mA and/or kV according to patient size (this includes techniques or standardized protocols for targeted exams where dose is matched to indication/reason for exam; i.e. extremities or head) *Use of iterative reconstruction technique DLP; 391 mGy-cm FINDINGS: Mild levocurvature of the lumbar spine. Preservation of the normal lumbar lordosis. Grade 1 anterolisthesis at L4-5 and mild retrolisthesis at L3-4. Sequelae of posterior spinal fusion at L4-S1. There is lucency surrounding the left L4 interpedicular screw. Mild osseous bridging laterally at this level. Otherwise, no acute compression fracture deformity. The vertebral body heights are preserved. Intraosseous hemangioma at T12. Multilevel endplate osteophytosis. Please note that evaluation is limited in the absence of intrathecal contrast. Within these limitations, T12-L1: Diffuse disc bulge. No significant spinal canal or neural foraminal narrowing. L1-2: No significant spinal canal or neural foraminal narrowing. L2-3: Diffuse disc bulge. No significant spinal canal or neural foraminal narrowing. L3-4: Diffuse disc bulge. Mild right greater than left neural foraminal narrowing with the disc abutting the exiting L3 nerve roots bilaterally. L4-5: Evaluation for patency of the canal is limited secondary to artifact. No significant neural foraminal narrowing. L5-S1: Evaluation of patency of the canal is limited secondary to artifact. Mild to moderate left greater than right neural foraminal narrowing. The paravertebral soft tissues are unremarkable. CT/CT lumbar spine wo IV con IMPRESSION: 1. Sequelae of posterior spinal fusion at L4-S1. Lucency surrounding the left L4 interpedicular screw concerning for loosening. 2. Multilevel degenerative changes of the lumbar spine as described above. Electronically signed by: Marin Lugo MD 08/26/2024 09:36 AM EDT
== END 2024-08-25 08:30 | disposition home or self-care (01) ==
LOC: HO.CT 08:29
PROVIDERS: PCP Nurse Practitioner Adult Health; Visit Provider Physician Assistant
DX: M43.16 Spondylolisthesis, lumbar region (principal)
CPT/HCPCS: 72131

== ENCOUNTER 2024-08-27 11:47 | Outpatient (AMB) | payer OTHER, MEDICARE, SELFPAY ==
--- NOTE | 2024-08-27 12:01 | A.SPINEOV_ITS ---
Intake Visit Reasons: CT scan f/up Intake Note: Ms. Montenegro is here today for a F/u of her CT scan. [place] Aide Required: No Allergies Penicillins Adverse Reaction (Unknown, Verified 08/27/24 12:09) Patient doesn't recall being allergic Assessment & Plan Assessment & Plan (1) Lumbar pseudoarthrosis: Code(s): S32.009K - Unspecified fracture of unspecified lumbar vertebra, subsequent encounter for fracture with nonunion Category: Medical Plan Mrs Montenegro is here in follow-up today. She underwent an L4-5, L5-S1 anterior lumbar interbody fusion about 2 months ago but she has continued to have escalating progressive pain worse than before surgery. When she stands and walks she is getting tremendous months of pain in her back and going down into her hips and legs. We previously had done x-rays which did not show any signs of instability, so we sent her for CT scan to better look at the screws as she did have very poor bone quality time of surgery. She continues to use the tramadol in the oxycodone. I did have to contact her PCP the other day with regard to her contacting us about prescribing her more oxycodone. I reviewed her CT scan today with Dr. Escalera and discuss with the patient the fact that the L4 screws both show evidence of lucency, worse on the left. Dr. Escalera believes that the L4-5 construct his likely not stable here and she will need revision. We are going to bring her back to the operating room for revision of posterior instrumentation extension of the pedicle screw up to L3, with a posterolateral fusion. We have tentatively scheduled her for September 08. We will also order her a brace that she can use after surgery. All pertinent risks and benefits were discussed and the patient wishes to proceed. Hernán Escalera MD,PhD [facility] Medications: New [LSO] As directed 1 ea 0RF S32.009K - Unspecified fracture of unspecified lumbar vertebra, subsequent encounter for fracture with nonunion Coding Level of Care Code Global (62581) Diagnoses Lumbar pseudoarthrosis S32.009K
== END 2024-08-27 12:53 | disposition home or self-care (01) ==
PROVIDERS: PCP Nurse Practitioner Adult Health; Visit Provider Physician Assistant
DX: S32.009K Unspecified fracture of unspecified lumbar vertebra, subsequent encounter for fracture with nonunion (principal)
CPT/HCPCS: 99024

== ENCOUNTER → 2024-08-27 11:47 | Outpatient (BNVA) | payer OTHER, MEDICARE, SELFPAY | PROVIDERS: PCP Nurse Practitioner Adult Health; Visit Provider Physician Assistant ==

== ENCOUNTER 2024-10-20 13:05 | Outpatient (REF) | payer OTHER, MEDICARE, SELFPAY ==
--- OUTSIDE RECORDS SUMMARY | 2024-10-20 13:08 | XMS_ITS | Continuity of Care Document ---
Author Organization [facility] Primary [facility] e [place] Address [address] [place] [address]- Care Team Providers Care Senior Managing Director Name Role Phone Megan KHOURY, Diana Allen Primary Care Physician Encounter [facility] Date(s): 09/15/24 - 10/15/24 [facility] [place] [address] [place], [place] [address] Encounter Type: Triage Allergies, Adverse Reactions, Alerts Substance Criticality Severity Reaction Reaction Severity Status hydrOXYzine LAW - Headache Acti ve Other Environmental Allergy 1 sneezing, itchy eyes Active 1seasonal allergies Immunizations Given and Recorded Vaccine Date Status Refusal Reason influenza virus vaccine, inactivated 08/19/24 Give n influenza virus vaccine, inactivated 08/12/23 Marcelino rded influenza virus vaccine, inactivated 08/28/22 Marcelino rded influenza virus vaccine, inactivated 08/02/22 Marcelino rded influenza virus vaccine, inactivated 1 09/03/21 Gi annette influenza virus vaccine, inactivated 07/29/19 Marcelino rded influenza virus vaccine, inactivated 09/05/18 Marcelino rded influenza virus vaccine, inactivated 11/21/17 Marcelino rded RSV vaccine, preF A-preF B, recombinant 2 07/08/24 Recorded pneumococcal 20-valent conjugate vaccine 08/12/23 Recorded [id number] bivalent booster vax 10/14/22 Recorded SARS-CoV-2 (COVID-19) mRNA-1273 vaccine 10/22/21 R ecorded SARS-CoV-2 (COVID-19) mRNA-1273 vaccine 02/28/21 R ecorded SARS-CoV-2 (COVID-19) mRNA-1273 vaccine 01/31/21 R ecorded zoster vaccine, inactivated 3 12/27/20 Recorded zoster vaccine, inactivated 06/21/20 Recorded Influenza Virus Vaccine (oldterm) 07/23/20 Recorde d tetanus/diphtheria/pertussis, acel(Tdap) 05/17/14 Recorded 1Result Comment: [facility]# [id number] 2Result Comment: given at [facility] 3Result Comment: [facility] Medications busPIRone 15 mg oral tablet 1 tablet, By Mouth, 3 times a day, # 270 tablet, 1 Refills, Maintenance, 06/25/24 4:18:00 PM EDT, [facility]/pharmacy #[id number], 163, cm, 05/25/24 8:51:00 EDT, Height, 54, kg, 02/07/23 16:21:00 EDT, Dry Weight Start Date: 06/25/24 Status: Ordered Quantity: 270.0 Unit: tablet Repeat number: 2 clotrimazole 1% topical cream 1 application, Topically, 2 times a day, # 12 Gm, 1 Refills, Maintenance, 11/25/23 4:01:00 PM EST, Cream, [facility]/pharmacy #[id number], Partial fill upon patient request if the prescription is for a schedule IIopioid drug., 1 application Topically 2 times a day, 163, cm, 11/25/23 15:38:00 EST, Height, 54, kg, 02/07/23 16:21:00 EDT, Dry Weight Start Date: 11/25/23 Status: Ordered Quantity: 12.0 Unit: g Repeat number: 2 Compression Stockings See Instructions, # 3 pair, Maintenance, DX: [facility] surgical, calf length 20-30 mm Hg, 06/08/19 8:47:56 AM EDT, Compound Start Date: 06/08/19 Status: Ordered Quantity: 3.0 Unit: pair Repeat number: 1 diclofenac 1% topical gel = 2 Gm, Topically, 4 times a day, # 200 Gm, 1 Refills, Maintenance, 08/10/24 12:39:00 PM EDT, [facility]/pharmacy #[id number], 2 Gm Topically 4 times a day, 163, cm, 05/25/24 8:51:00 EDT, Height, 54, kg, 02/07/23 16:21:00 EDT, Dry Weight Start Date: 08/10/24 Status: Ordered Quantity: 200.0 Unit: g Repeat number: 2 diclofenac sodium 75 mg oral delayed release tablet 1 tablet, By Mouth, 2 times a day, PRN NEEDED FOR PAIN, # 60 tablet, 1 Refills, Maintenance, 04/21/24 4:45:00 PM EDT, [facility]/pharmacy #[id number], 163, cm, 01/27/24 16:29:00 EDT, Height, 54, kg, 02/07/23 16:21:00 EDT, Dry Weight Start Date: 04/21/24 Status: Ordered Quantity: 60.0 Unit: tablet Repeat number: 2 estradiol 1 mg/1 g (0.1%) transdermal gel See Instructions, 1 each Topically 3 times per week, 0 Refills, Maintenance, 06/28/20 8:05:00 AM EDT Start Date: 06/28/20 Status: Ordered Repeat number: 1 ipratropium nasal 42 mcg/inh spray See Instructions, INHALE 2 PUFFS INTO EACH NOSTRIL TWICE DAILY NEEDED, # 15 sprays, 4 Refills, [id number], 30, INHALE 2 PUFFS INTO EACH NOSTRIL TWICE DAILY NEEDED, 165.1, cm, 10/16/20 15:14:00 EST, Height Start Date: 10/19/20 Status: Ordered Quantity: 15.0 Unit: sprays Repeat number: 1 Lyrica 150 mg oral capsule 1 capsule = 150 mg, By Mouth, 2 times a day, Please d/c pregabalin 75mg daily in AM, # 60 capsule, 0 Refills, Maintenance, 05/25/24 1:58:00 PM EDT, [facility]/pharmacy #[id number], [facility] last filled 04/28/24 for 30 days qty 60, 163, cm, 05/25/24 8:51:00 EDT, Height, 54, kg, 02/07/23 16:21:00 EDT, Dry Weight Start Date: 05/25/24 Status: Ordered Quantity: 60.0 Unit: capsule Repeat number: 1 Lyrica 150 mg oral capsule 1 capsule = 150 mg, By Mouth, 2 times a day, Please d/c pregabalin 75mg daily in AM, # 180 capsule,3 Refills, Maintenance, 05/25/24 9:27:00 AM EDT, [id number], [facility] last filled 03/02/24, 163, cm, 05/25/24 8:51:00 EDT, Height, 54, kg, 02/07/23 16:21:00 EDT, Dry Weight Start Date: 05/25/24 Stop Date: 05/20/25 Status: Ordered Quantity: 180.0 Unit: capsule Repeat number: 4 memantine 21 mg oral capsule, extended release 1 capsule = 21 mg, By Mouth, Daily, # 90 capsule, 4 Refills, Maintenance, 08/18/24 3:15:00 PM EDT, CR Capsule, [id number], Partial fill upon patient request if the prescription is for a schedule II opioid drug., 163, cm, 08/18/24 14:29:00 EDT, Height, 54, kg, 02/07/23 16:21:00 EDT, Dry Weight Start Date: 08/18/24 Stop Date: 11/11/25 Status: Ordered Quantity: 90.0 Unit: capsule Repeat number: 5 Namenda XR 7 mg oral capsule, extended release 1 capsule = 7 mg, By Mouth, Daily, for 60 days, # 60 capsule, 3 Refills, Hard Stop 01/20/25 9:39:00 AM EDT, 05/25/24 9:39:00 AM EDT, CR Capsule, [facility], Partial fill upon patient request ifthe prescription is for a schedule II opioid drug., 163, cm, 05/25/24 8:51:00 EDT, Height, 54, kg, 02/07/23 16:21:00 EDT, Dry Weight Start Date: 05/25/24 Stop Date: 01/20/25 Status: Ordered Quantity: 60.0 Unit: capsule Repeat number: 4 Namenda XR 7 mg oral capsule, extended release 1 capsule = 7 mg, By Mouth, Daily, for 60 days, # 60 capsule, 3 Refills, Hard Stop 09/17/25 9:39:00AM EST, 01/20/25 9:39:00 AM EDT, CR Capsule, [facility], Partial fill upon patient request if the prescription is for a schedule II opioid drug., 163, cm, 05/25/24 8:51:00 EDT, Height, 54, kg,02/07/23 16:21:00 EDT, Dry Weight Start Date: 01/20/25 Stop Date: 09/17/25 Status: Ordered Quantity: 60.0 Unit: capsule Repeat number: 4 Namenda XR 7 mg oral capsule, extended release 1 capsule = 7 mg, By Mouth, Daily, # 60 capsule, 3 Refills, Maintenance, 09/17/25 9:39:00 AM EST, CR Capsule, [facility]/pharmacy #[id number], Partial fill upon patient request if the prescription is for a schedule II opioid drug., 163, cm, 08/18/24 14:29:00 EDT, Height, 54, kg, 02/07/23 16:21:00 EDT, Dry Weight Start Date: 09/17/25 Stop Date: 05/15/26 Status: Ordered Quantity: 60.0 Unit: capsule Repeat number: 4 omeprazole 40 mg oral enteric coated capsule 2 capsule, By Mouth, Daily, # 180 capsule, 1 Refills, Maintenance, 04/05/24 8:31:00 AM EDT, [facility] [id number], 163, cm, 01/27/24 16:29:00 EDT, Height, 54, kg, 02/07/23 16:21:00 EDT, Dry Weight Start Date: 04/05/24 Status: Ordered Quantity: 180.0 Unit: capsule Repeat number: 1 sertraline 25 mg oral tablet 1 tablet = 25 mg, By Mouth, Daily, # 90 tablet, 1 Refills, Maintenance, 07/22/24 2:50:00 PM EDT, Tablet, [facility]/pharmacy #[id number], Partial fill upon patient request if the prescription is for a schedule II opioid drug., 163, cm, 05/25/24 8:51:00 EDT, Height, 54, kg, 02/07/23 16:21:00 EDT, Dry Weight Start Date: 07/22/24 Status: Ordered Quantity: 90.0 Unit: tablet Repeat number: 2 tiZANidine 4 mg oral capsule 1 capsule, By Mouth, 2 times a day, PRN NEEDED FOR SPASM, Do not take w/ PM cylcobenzaprine, # 90 capsule, 0 Refills, Maintenance, 12/24/23 2:25:00 PM EST, [id number], 163, cm, 12/17/23 12:53:00 EST, Height, 54, kg, 02/07/23 16:21:00 EDT, Dry Weight Start Date: 12/24/23 Status: Ordered Quantity: 90.0 Unit: capsule Repeat number: 1 traMADol 50 mg oral tablet 2 tablet = 100 mg, By Mouth, Every 6 hours, PRN Pain , Severe, last filled : Tramadol Hcl 50 Mg Tablet. MASS PAT CHECKED last filled 09/20/24 for 28 days qty 224, # 224 tablet, 0 Refills, Soft Stop, 10/12/24 11:03:00 AM EST, [facility]/pharmacy #[id number], PT DUE 10-18, 163, cm, 08/18/24 14:29:00 EDT, Height, 54, kg, 02/07/23 16:21:00 EDT, Dry Weight Start Date: 10/12/24 Stop Date: 11/09/24 Status: Ordered Quantity: 224.0 Unit: tablet Repeat number: 1 traMADol 50 mg oral tablet 2 tablet = 100 mg, By Mouth, Every 6 hours, PRN Pain , Severe, for 28 days, last filled : Tramadol Hcl 50 Mg Tablet. MASS PAT CHECKED last filled 08/20/24 for 28 days qty 224, # 224 tablet, 0 Refills, Hard Stop 10/18/24 5:43:00 PM EST, 09/20/24 5:43:00 PM EST, [facility]/pharmacy #[id number], NOT DUE UNTIL 05-25-24, 163, cm, 08/18/24 14:29:00 EDT, Height, 54, kg, 02/07/23 16:21:00 EDT, Dry Weight Start Date: 09/20/24 Stop Date: 10/18/24 Status: Ordered Quantity: 224.0 Unit: tablet Repeat number: 1 traZODone 100 mg oral tablet 2, tablet, By Mouth, Daily at bedtime, # 180 tablet, Refills 1, Tot. Refills 1, Maintenance, 06/25/24 4:17:00 PM EDT, Route to Pharmacy Electronically, [facility]/pharmacy #[id number], 163, cm, 05/25/24 8:51:00 EDT, Height, 54, kg, 02/07/23 16:21:00 EDT, Dry Weight Start Date: 06/25/24 Status: Ordered Quantity: 180.0 Unit: tablet Repeat number: 2 Vitamin B12 1000 mcg oral tablet 1 tablet = 1,000 mcg, By Mouth, Daily, 0 Refills, Maintenance, 05/14/23 5:45:00 PM EDT, Partial fillupon patient request if the prescription is for a schedule II opioid drug. 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 DJD (degenerative joint disease), cervical Confirmed Active Insomnia Confirmed Active Low vitamin D level Confirmed Active DDD (degenerative disc disease), lumbar Confirmed Active Impingement of right shoulder Confirmed Active Fatigue Confirmed Active S/P lumbar fusion Confirmed Active HLD (hyperlipidemia) Confirmed Active Lichen sclerosus Confirmed Active Memory problem Confirmed Active Mild tricuspid valve regurgitation Confirmed Active Chronic narcotic use Confirmed Active Osteoporosis Confirmed Active Palpitations Confirmed Active Health care maintenance Confirmed Active Moderate recurrent major depression Confirmed Active Seasonal allergies Confirmed Active Social History Social History Type Response Smoking Status Never (less than 100 in lifetime); Tobacco user in household: No entered on: 12/09/18 Sex Sex Representation Female (finding) Patient Care team information Care Team Personnel Name: Megan KHOURY, Diana Allen Position: S PCO Associate Professional Member Role: PCP Address: [address] [place] [address] Primary [place], [place] [address] Telecom: Care Team Related Persons Name: CAILIN RAMIREZ Insurance Providers Guarantor name: NIYA ASHLEY Health Plan Information #: 1 Payer: [employer] NON HMO PLANS Member Number: NA Policy Number: NA Group Number: NA Health Plan Information #: 2 Payer: I10 MEDICARE SUPPL 2NDRY Member Number: NA Policy Number: NA Group Number: NA
--- OUTSIDE RECORDS SUMMARY | 2024-10-20 13:08 | XMS_ITS | Continuity of Care Document ---
Author Organization [facility] Primary [facility] [place] Address [address] [place] [address]- Care Team Providers Care Retail Analytics Manager Name Role Phone Megan KHOURY, Diana Allen Primary Care Physician Encounter [facility] Date(s): 05/25/24 - 09/22/24 [facility] [place] [address], [place] [address] Attending Physician: Corinne Hinds MD Encounter Type: Pre-OutPatient One Time Allergies, Adverse Reactions, Alerts Substance Criticality Severity [...] Recorded pneumococcal 20-valent conjugate vaccine 08/12/23 Recorded [id number] bivalent booster vax 10/14/22 Recorded SARS-CoV-2 (COVID-19) mRNA-1273 vaccine 10/22/21 R ecorded SARS-CoV-2 (COVID-19) mRNA-1273 vaccine 02/28/21 R ecorded SARS-CoV-2 (COVID-19) mRNA-1273 vaccine 01/31/21 R ecorded zoster vaccine, inactivated 3 12/27/20 Recorded zoster vaccine, inactivated 06/21/20 Recorded Influenza Virus Vaccine (oldterm) 07/23/20 Recorde d tetanus/diphtheria/pertussis, acel(Tdap) 05/17/14 Recorded 1Result Comment: [facility]# [id number] 2Result Comment: given at [facility] 3Result Comment: [facility] Medications busPIRone 15 mg oral tablet 1 tablet, By Mouth, 3 times a day, # 270 tablet, 1 Refills, Maintenance, 06/25/24 4:18:00 PM EDT, [facility]/pharmacy #[id number], 163, cm, 05/25/24 8:51:00 EDT, Height, 54, kg, 02/07/23 16:21:00 EDT, Dry Weight Start Date: 06/25/24 Status: Ordered Quantity: 270.0 Unit: tablet Repeat number: 2 clotrimazole 1% topical cream 1 application, Topically, 2 times a day, # 12 Gm, 1 Refills, Maintenance, 11/25/23 4:01:00 PM EST, Cream, [facility]/pharmacy #[id number], Partial fill upon patient [...] Quantity: 3.0 Unit: pair Repeat number: 1 cyclobenzaprine 10 mg oral tablet 10 mg, 1, tablet, By Mouth, Daily at bedtime, PRN, for 30 days, OV 08-18-24, # 30 tablet, Refills 0, Tot. Refills 0, Acute 10/15/24 3:50:00 PM EST, Spasm for spasm, 09/15/24 3:50:00 PM EST, Route to Pharmacy Electronically, [facility]/pharmacy #[id number], Partial fill upon patient request if the prescriptionis for a schedule II opioid drug., 163, cm, 08/18/24 14:29:00 EDT, Height, 54, kg, 02/07/23 16:21:00 EDT, Dry Weight Start Date: 09/15/24 Stop Date: 10/15/24 Status: Ordered Quantity: 30.0 Unit: tablet Repeat number: 1 diclofenac 1% topical gel = 2 Gm, Topically, 4 times a day, # 200 Gm, 1 Refills, Maintenance, 08/10/24 12:39:00 PM EDT, [facility]/pharmacy #1157, 2 Gm Topically 4 [...] 1 Refills, Maintenance, 04/21/24 4:45:00 PM EDT, [facility]/pharmacy #1157, 163, cm, 01/27/24 16:29:00 [...] DAILY NEEDED, # 15 sprays, 4 Refills, [facility] ST[facility] [id number], 30, INHALE 2 PUFFS INTO EACH NOSTRIL TWICE DAILY NEEDED, 165.1, cm, 10/16/20 15:14:00 EST, Height Start Date: 10/19/20 Status: Ordered Quantity: 15.0 Unit: sprays Repeat number: 1 Lyrica 150 mg oral capsule 1 capsule = 150 mg, By Mouth, 2 times a day, Please d/c pregabalin 75mg daily in AM, # 60 capsule, 0 Refills, Maintenance, 05/25/24 1:58:00 PM EDT, [facility], [facility] last filled 04/28/24 for 30 [...] Maintenance, 09/17/25 9:39:00 AM EST, CR Capsule, [id number], Partial fill upon [...] 1 Refills, Maintenance, 04/05/24 8:31:00 AM EDT, [facility] [id number], 163, cm, 01/27/24 16:29:00 EDT, Height, 54, kg, 02/07/23 16:21:00 EDT, Dry Weight Start Date: 04/05/24 Status: Ordered Quantity: 180.0 Unit: capsule Repeat number: 1 sertraline 25 mg oral tablet 1 tablet = 25 mg, By Mouth, Daily, # 90 tablet, 1 Refills, Maintenance, 07/22/24 2:50:00 PM EDT, Tablet, [facility]/pharmacy #[id number], Partial fill upon patient [...] 0 Refills, Maintenance, 12/24/23 2:25:00 PM EST, [facility]/pharmacy #[id number], 163, cm, 12/17/23 12:53:00 EST, Height, [...] # 224 tablet, 0 Refills, Soft Stop, 09/20/24 5:43:00 PM EST, [facility]/pharmacy #[id number], NOT DUE UNTIL 05-25-24, [...] Tramadol Hcl 50 Mg Tablet. MASS PAT CHECKED, # 224 tablet, 0 Refills, Hard Stop 09/23/24 11:29:00 AM EST, 08/26/24 11:29:00 AM EDT, [facility]/pharmacy #[id number], NOT DUE UNTIL 05-25-24, 163, cm, 08/18/24 14:29:00 EDT, Height, 54, kg, 02/07/23 16:21:00 EDT, Dry Weight Start Date: 08/26/24 Stop Date: 09/23/24 Status: Ordered Quantity: 224.0 Unit: tablet Repeat number: 1 traZODone 100 mg oral tablet 2, tablet, By Mouth, Daily at bedtime, # 180 tablet, Refills 1, Tot. Refills 1, Maintenance, 06/25/24 4:17:00 PM EDT, [id number], cm, 05/25/24 8:51:00 EDT, Height, [...] Care team information Care Team Personnel Name: Diana Guzman NP Position: S PCO Associate Professional Member Role: PCP Address: [address] [place] [address] [place] [address] Telecom: Care Team Related Persons Name: CAILIN RAMIREZ Insurance Providers Guarantor name: NIYA ZAPIENAMNA Health Plan Information #: 1 Payer: [employer] NON HMO PLANS Member Number: [id number] Policy Number: NA Group Number: [id number] Health Plan Information #: 2 Payer: [employer] NON HMO PLANS Member Number: [id number] Policy Number: NA Group Number: NA Health Plan Information #: 3 Payer: I10 MEDICARE SUPPL 2ND Member Number: NA Policy Number: NA Group Number: NA
--- OUTSIDE RECORDS SUMMARY | 2024-10-20 13:08 | XMS_ITS | Continuity of Care Document ---
Author Organization [facility] Primary [facility] [place] Address [address] [place] [address]- Care Team Providers Care Regional Office Coordinator Name Role Phone Megan KHOURY, Diana Allen Primary Care Physician Encounter [facility] Date(s): 08/24/24 - 09/23/24 [facility] [place] [address], [place] [address] Encounter Type: Triage Allergies, Adverse Reactions, Alerts [...] Recorded pneumococcal 20-valent conjugate vaccine 08/12/23 Recorded [id number] bivalent booster vax 10/14/22 Recorded SARS-CoV-2 (COVID-19) mRNA-1273 vaccine 10/22/21 R ecorded SARS-CoV-2 (COVID-19) mRNA-1273 vaccine 02/28/21 R ecorded SARS-CoV-2 (COVID-19) mRNA-1273 vaccine 01/31/21 R ecorded zoster vaccine, inactivated 3 12/27/20 Recorded zoster vaccine, inactivated 06/21/20 Recorded Influenza Virus Vaccine (oldterm) 07/23/20 Recorde d tetanus/diphtheria/pertussis, acel(Tdap) 05/17/14 Recorded 1Result Comment: [facility]# [id number] 2Result Comment: given at [facility] 3Result Comment: [facility] Medications busPIRone 15 mg oral tablet 1 tablet, By Mouth, 3 times a day, # 270 tablet, 1 Refills, Maintenance, 06/25/24 4:18:00 PM EDT, [facility]/pharmacy #1157, 163, cm, 05/25/24 8:51:00 EDT, Height, 54, kg, 02/07/23 16:21:00 EDT, Dry Weight Start Date: 06/25/24 Status: Ordered Quantity: 270.0 Unit: tablet Repeat number: 2 clotrimazole 1% topical cream 1 application, Topically, 2 times a day, # 12 Gm, 1 Refills, Maintenance, 11/25/23 4:01:00 PM EST, Cream, [facility]/pharmacy #1157, Partial fill upon patient request if [...] 3:50:00 PM EST, Route to Pharmacy Electronically, [facility]/pharmacy #[id number], Partial fill upon patient request if [...] 1 Refills, Maintenance, 08/10/24 12:39:00 PM EDT, [facility]/pharmacy #1157, 2 Gm Topically 4 times a day, 163, cm, 05/25/24 8:51:00 EDT, Height, 54, kg, 02/07/23 16:21:00 EDT, Dry Weight Start Date: 08/10/24 Status: Ordered Quantity: 200.0 Unit: g Repeat number: 2 diclofenac sodium 75 mg oral delayed release tablet 1 tablet, By Mouth, 2 times a day, PRN NEEDED FOR PAIN, # 60 tablet, 1 Refills, Maintenance, 04/21/24 4:45:00 PM EDT, [facility]/pharmacy #1157, 163, cm, 01/27/24 16:29:00 EDT, Height, [...] DAILY NEEDED, # 15 sprays, 4 Refills, [facility] [id number], 30, INHALE 2 PUFFS INTO EACH NOSTRIL [...] 1 Refills, Maintenance, 04/05/24 8:31:00 AM EDT, [id number], 163, cm, 01/27/24 16:29:00 EDT, Height, 54, kg, 02/07/23 16:21:00 EDT, Dry Weight Start Date: 04/05/24 Status: Ordered Quantity: 180.0 Unit: capsule Repeat number: 1 sertraline 25 mg oral tablet 1 tablet = 25 mg, By Mouth, Daily, # 90 tablet, 1 Refills, Maintenance, 07/22/24 2:50:00 PM EDT, Tablet, [facility]/pharmacy #1157, Partial fill upon patient request if [...] 0 Refills, Maintenance, 12/24/23 2:25:00 PM EST, [facility]/pharmacy #1157, 163, cm, 12/17/23 12:53:00 EST, Height, [...] Refills, Soft Stop, 09/20/24 5:43:00 PM EST, [facility]/pharmacy #[id number], NOT DUE UNTIL 05-25-24, 163, cm, 08/18/24 14:29:00 EDT, Height, 54, kg, 02/07/23 16:21:00 EDT, Dry Weight Start Date: 09/20/24 Stop Date: 10/18/24 Status: Ordered Quantity: 224.0 Unit: tablet Repeat number: 1 traZODone 100 mg oral tablet 2, tablet, By Mouth, Daily at bedtime, # 180 tablet, Refills 1, Tot. Refills 1, Maintenance, 06/25/24 4:17:00 PM EDT, Route to Pharmacy Electronically, [facility]/pharmacy #[id number], 163, cm, 05/25/24 8:51:00 EDT, Height, [...] PCO Associate Professional Member Role: PCP Address: [address] [place] [address] Primary [place], [place] [address] Telecom: Care Team Related Persons Name: CAILIN RAMIREZ Insurance Providers Guarantor name: NIYA RAMIREZ Health Plan Information #: 1 Payer: [employer] NON H[employer] PLANS Member Number: NA Policy Number: NA Group Number: NA Health Plan Information #: 2 Payer: I10 MEDIC[employer] SUPPL 2NDRY Member Number: NA Policy Number: NA Group Number: NA
--- OUTSIDE RECORDS SUMMARY | 2024-10-20 13:08 | XMS_ITS | Continuity of Care Document ---
Author Organization [facility] Primary [facility] [place] Address [address] [place] [address]- Care Team Providers Care Plasma Processing Technician Name Role Phone Megan KHOURY, Diana Allen Primary Care Physician [facility]counter [facility] Date(s): 08/24/24 - 09/23/24 [facility] Care [place] [address] [place], [place] [address] Encounter Type: Triage Allergies, Adverse Reactions, [...] Recorded pneumococcal 20-valent conjugate vaccine 08/12/23 Recorded [id number] bivalent booster vax 10/14/22 Recorded SARS-CoV-2 (COVID-19) mRNA-1273 vaccine 10/22/21 R ecorded SARS-CoV-2 (COVID-19) mRNA-1273 vaccine 02/28/21 R ecorded SARS-CoV-2 (COVID-19) mRNA-1273 vaccine 01/31/21 R ecorded zoster vaccine, inactivated 3 12/27/20 Recorded zoster vaccine, inactivated 06/21/20 Recorded Influenza Virus Vaccine (oldterm) 07/23/20 Recorde d tetanus/diphtheria/pertussis, acel(Tdap) 05/17/14 Recorded 1Result Comment: [facility]# [id number] 2Result Comment: given at [facility] 3Result Comment: [facility] Medications busPIRone 15 mg oral tablet 1 tablet, By Mouth, 3 times a day, # 270 tablet, 1 Refills, Maintenance, 06/25/24 4:18:00 PM EDT, [facility]/pharmacy #[id number], 163, cm, 05/25/24 8:51:00 EDT, Height, 54, kg, 02/07/23 16:21:00 EDT, Dry Weight Start Date: 06/25/24 Status: Ordered Quantity: 270.0 Unit: tablet Repeat number: 2 clotrimazole 1% topical cream 1 application, Topically, 2 times a day, # 12 Gm, 1 Refills, Maintenance, 11/25/23 4:01:00 PM EST, Cream, [facility]/pharmacy #[id number], Partial fill upon patient [...] 3:50:00 PM EST, Route to Pharmacy Electronically, [facility]/pharmacy #[id number], Partial fill upon patient [...] 1 Refills, Maintenance, 08/10/24 12:39:00 PM EDT, [facility]/pharmacy #1157, 2 Gm Topically 4 [...] 1 Refills, Maintenance, 04/21/24 4:45:00 PM EDT, [facility]/pharmacy #[id number], 163, cm, 01/27/24 16:29:00 [...] DAILY NEEDED, # 15 sprays, 4 Refills, [facility] STORE [id number], 30, INHALE 2 PUFFS INTO EACH NOSTRIL [...] Refills, Maintenance, 04/05/24 8:31:00 AM EDT, [id number], 163, cm, 01/27/24 16:29:00 EDT, Height, 54, kg, 02/07/23 16:21:00 EDT, Dry Weight Start Date: 04/05/24 Status: Ordered Quantity: 180.0 Unit: capsule Repeat number: 1 sertraline 25 mg oral tablet 1 tablet = 25 mg, By Mouth, Daily, # 90 tablet, 1 Refills, Maintenance, 07/22/24 2:50:00 PM EDT, Tablet, [facility]/pharmacy #[id number], Partial fill upon patient [...] 0 Refills, Maintenance, 12/24/23 2:25:00 PM EST, [facility]/pharmacy #1157, 163, cm, 12/17/23 12:53:00 [...] Refills, Soft Stop, 09/20/24 5:43:00 PM EST, [facility]/pharmacy #[id number], NOT DUE UNTIL 05-25-24, [...] 4:17:00 PM EDT, Route to Pharmacy Electronically, [facility]/pharmacy #[id number], 163, cm, 05/25/24 8:51:00 [...] PCO Associate Professional Member Role: PCP Address: [address] [place] [address] Primary Care [place], [place] [address] Telecom: Care Team Related Persons Name: CAILIN RAMIREZ Insurance Providers Guarantor name: NIYA RAMIREZ Health Plan Information #: 1 Payer: AET[employer] NON HMO PLANS Member Number: NA Policy Number: NA Group Number: NA Health Plan Information #: 2 Payer: I10 MEDICARE SUPPL 2NDRY Member Number: NA Policy Number: NA Group Number: NA
--- OUTSIDE RECORDS SUMMARY | 2024-10-20 13:08 | XMS_ITS | Continuity of Care Document ---
Author Organization [facility] Primary [facility] [place] Address [address] [place] [address]- Care Team Providers Care Precipitator Name Role Phone Megan KHOURY, Diana Allen Primary Care Physician Encounter [facility] Date(s): 08/24/24 - 09/23/24 [facility] Care [place] [address] [place], [place] [address] Encounter Type: Triage Allergies, Adverse Reactions, Alerts [...] Recorded pneumococcal 20-valent conjugate vaccine 08/12/23 Recorded [id number] bivalent booster vax 10/14/22 Recorded SARS-CoV-2 (COVID-19) mRNA-1273 vaccine 10/22/21 R ecorded SARS-CoV-2 (COVID-19) mRNA-1273 vaccine 02/28/21 R ecorded SARS-CoV-2 (COVID-19) mRNA-1273 vaccine 01/31/21 R ecorded zoster vaccine, inactivated 3 12/27/20 Recorded zoster vaccine, inactivated 06/21/20 Recorded Influenza Virus Vaccine (oldterm) 07/23/20 Recorde d tetanus/diphtheria/pertussis, acel(Tdap) 05/17/14 Recorded 1Result Comment: [facility]# [id number] 2Result Comment: given at [facility] 3Result Comment: [facility] Medications busPIRone 15 mg oral tablet 1 tablet, By Mouth, 3 times a day, # 270 tablet, 1 Refills, Maintenance, 06/25/24 4:18:00 PM EDT, [facility]/pharmacy #1157, 163, cm, 05/25/24 8:51:00 EDT, Height, 54, kg, 02/07/23 16:21:00 EDT, Dry Weight Start Date: 06/25/24 Status: Ordered Quantity: 270.0 Unit: tablet Repeat number: 2 clotrimazole 1% topical cream 1 application, Topically, 2 times a day, # 12 Gm, 1 Refills, Maintenance, 11/25/23 4:01:00 PM EST, Cream, [facility]/pharmacy #1157, Partial fill upon patient request if [...] 3:50:00 PM EST, Route to Pharmacy Electronically, [facility]/pharmacy #1157, Partial fill upon patient request if [...] 1 Refills, Maintenance, 08/10/24 12:39:00 PM EDT, [facility]/pharmacy #1157, 2 Gm Topically 4 times a day, 163, cm, 05/25/24 8:51:00 EDT, Height, 54, kg, 02/07/23 16:21:00 EDT, Dry Weight Start Date: 08/10/24 Status: Ordered Quantity: 200.0 Unit: g Repeat number: 2 diclofenac sodium 75 mg oral delayed release tablet 1 tablet, By Mouth, 2 times a day, PRN NEEDED FOR PAIN, # 60 tablet, 1 Refills, Maintenance, 04/21/24 4:45:00 PM EDT, [facility]/pharmacy #1157, 163, cm, 01/27/24 16:29:00 EDT, Height, [...] DAILY NEEDED, # 15 sprays, 4 Refills, [facility] STORE [id number], 30, INHALE 2 PUFFS INTO EACH NOSTRIL [...] Refills, Maintenance, 04/05/24 8:31:00 AM EDT, [id number], 163, cm, 01/27/24 16:29:00 EDT, Height, 54, kg, 02/07/23 16:21:00 EDT, Dry Weight Start Date: 04/05/24 Status: Ordered Quantity: 180.0 Unit: capsule Repeat number: 1 sertraline 25 mg oral tablet 1 tablet = 25 mg, By Mouth, Daily, # 90 tablet, 1 Refills, Maintenance, 07/22/24 2:50:00 PM EDT, Tablet, [facility]/pharmacy #1157, Partial fill upon patient request if [...] 0 Refills, Maintenance, 12/24/23 2:25:00 PM EST, [facility]/pharmacy #1157, 163, cm, 12/17/23 12:53:00 EST, Height, [...] Refills, Soft Stop, 09/20/24 5:43:00 PM EST, [facility]/pharmacy #1157, NOT DUE UNTIL 05-25-24, 163, cm, 08/18/24 14:29:00 EDT, Height, 54, kg, 02/07/23 16:21:00 EDT, Dry Weight Start Date: 09/20/24 Stop Date: 10/18/24 Status: Ordered Quantity: 224.0 Unit: tablet Repeat number: 1 traZODone 100 mg oral tablet 2, tablet, By Mouth, Daily at bedtime, # 180 tablet, Refills 1, Tot. Refills 1, Maintenance, 06/25/24 4:17:00 PM EDT, Route to Pharmacy Electronically, [facility]/pharmacy #[id number], 163, cm, 05/25/24 8:51:00 EDT, Height, [...] PCO Associate Professional Member Role: PCP Address: [address] [place] [address] Primary Care [place], [place] [address] Telecom: Care Team Related Persons Name: CAILIN RAMIREZ Insurance Providers Guarantor name: NIYA RAMIREZ Health Plan Information #: 1 Payer: AET[employer] NON HMO PLANS Member Number: NA Policy Number: NA Group Number: NA Health Plan Information #: 2 Payer: I10 MEDICARE SUPPL 2NDRY Member Number: NA Policy Number: NA Group Number: NA
--- OUTSIDE RECORDS SUMMARY | 2024-10-20 13:08 | XMS_ITS | Continuity of Care Document ---
Author Organization [facility] [employer] [facility] Address [address], [address] [place] [address]- Care Team Providers Care Claim Clinician Name Role Phone Megan KHOURY, Diana Allen Primary Care Physician Encounter [facility] Date(s): 09/14/24 - 10/14/24 [facility] [employer] [facility] [address] [place], [place] [address] Encounter Type: Triage Allergies, Adverse Reactions, [...] Recorded pneumococcal 20-valent conjugate vaccine 08/12/23 Recorded [id number] bivalent booster vax 10/14/22 Recorded SARS-CoV-2 (COVID-19) mRNA-1273 vaccine 10/22/21 R ecorded SARS-CoV-2 (COVID-19) mRNA-1273 vaccine 02/28/21 R ecorded SARS-CoV-2 (COVID-19) mRNA-1273 vaccine 01/31/21 R ecorded zoster vaccine, inactivated 3 12/27/20 Recorded zoster vaccine, inactivated 06/21/20 Recorded Influenza Virus Vaccine (oldterm) 07/23/20 Recorde d tetanus/diphtheria/pertussis, acel(Tdap) 05/17/14 Recorded 1Result Comment: [facility]# [id number] 2Result Comment: given at [facility] 3Result Comment: [facility] Medications busPIRone 15 mg oral tablet 1 tablet, By Mouth, 3 times a day, # 270 tablet, 1 Refills, Maintenance, 06/25/24 4:18:00 PM EDT, [facility]/pharmacy #1157, 163, cm, 05/25/24 8:51:00 EDT, Height, 54, kg, 02/07/23 16:21:00 EDT, Dry Weight Start Date: 06/25/24 Status: Ordered Quantity: 270.0 Unit: tablet Repeat number: 2 clotrimazole 1% topical cream 1 application, Topically, 2 times a day, # 12 Gm, 1 Refills, Maintenance, 11/25/23 4:01:00 PM EST, Cream, [facility]/pharmacy #1157, Partial fill upon patient request [...] at bedtime, PRN, for 30 days, OV -24, # 30 tablet, Refills 0, Tot. Refills 0, Acute 10/15/24 3:50:00 PM EST, Spasm for spasm, 09/15/24 3:50:00 PM EST, Route to Pharmacy Electronically, [facility]/pharmacy #1157, Partial fill upon patient request [...] 1 Refills, Maintenance, 08/10/24 12:39:00 PM EDT, [facility]/pharmacy #1157, 2 Gm Topically 4 times [...] 1 Refills, Maintenance, 04/21/24 4:45:00 PM EDT, [facility]/pharmacy #1157, 163, cm, 01/27/24 16:29:00 EDT, [...] DAILY NEEDED, # 15 sprays, 4 Refills, [facility] STORE [id number], 30, INHALE 2 PUFFS INTO EACH NOSTRIL TWICE DAILY NEEDED, 165.1, cm, 10/16/20 15:14:00 EST, Height Start Date: 12/17/20 Status: Ordered Quantity: 15.0 Unit: sprays Repeat [...] 1 Refills, Maintenance, 04/05/24 8:31:00 AM EDT, [facility] [id number], 163, cm, 01/27/24 16:29:00 EDT, Height, 54, kg, 02/07/23 16:21:00 EDT, Dry Weight Start Date: 04/05/24 Status: Ordered Quantity: 180.0 Unit: capsule Repeat number: 1 sertraline 25 mg oral tablet 1 tablet = 25 mg, By Mouth, Daily, # 90 tablet, 1 Refills, Maintenance, 07/22/24 2:50:00 PM EDT, Tablet, [facility]/pharmacy #1157, Partial fill upon patient request [...] 0 Refills, Maintenance, 12/24/23 2:25:00 PM EST, [facility]/pharmacy #1157, 163, cm, 12/17/23 12:53:00 EST, [...] Refills, Soft Stop, 10/12/24 11:03:00 AM EST, [facility]/pharmacy #1157, PT DUE 12-16, 163, cm, 08/18/24 14:29:00 EDT, Height, 54, [...] 5:43:00 PM EST, 09/20/24 5:43:00 PM EST, [facility]/pharmacy #1157, NOT DUE UNTIL 05-25-24, 163, [...] PM EDT, Route to Pharmacy Electronically, [facility]/pharmacy #1157, 163, cm, 05/25/24 8:51:00 EDT, [...] PCO Associate Professional Member Role: PCP Address: [address] [place] [address] [place] [address]- Telecom: Care Team Related Persons Name: CAILIN RAMIREZ Insurance Providers Guarantor name: NIYA ZAPIENAMNA Health Plan Information #: 1 Payer: AETNA NON HMO PLANS Member Number: NA Policy Number: NA Group Number: NA Health Plan Information #: 2 Payer: I10 MEDICARE SUPPL 2NDRY Member Number: NA Policy Number: NA Group Number: NA
--- OUTSIDE RECORDS SUMMARY | 2024-10-20 13:08 | XMS_ITS | Continuity of Care Document ---
Author Organization [facility] Primary [facility] [place] Address [address] [place] [address]- Care Team Providers Care Account Leader Name Role Phone Megan KHOURY, Diana Allen Primary Care Physician [phone] Encounter [facility] Date(s): 09/15/24 - 10/15/24 [facility] [address] [place], [place] [address] Encounter Type: Triage Allergies, Adverse [...] Recorded pneumococcal 20-valent conjugate vaccine 08/12/23 Recorded [id number] bivalent booster vax 10/14/22 Recorded SARS-CoV-2 (COVID-19) mRNA-1273 vaccine 10/22/21 R ecorded SARS-CoV-2 (COVID-19) mRNA-1273 vaccine 02/28/21 R ecorded SARS-CoV-2 (COVID-19) mRNA-1273 vaccine 01/31/21 R ecorded zoster vaccine, inactivated 3 12/27/20 Recorded zoster vaccine, inactivated 06/21/20 Recorded Influenza Virus Vaccine (oldterm) 07/23/20 Recorde d tetanus/diphtheria/pertussis, acel(Tdap) 05/17/14 Recorded 1Result Comment: [facility]# [id number] 2Result Comment: given at [facility] 3Result Comment: [facility] Medications busPIRone 15 mg oral tablet 1 tablet, By Mouth, 3 times a day, # 270 tablet, 1 Refills, Maintenance, 06/25/24 4:18:00 PM EDT, [facility]/pharmacy #1157, 163, cm, 05/25/24 8:51:00 EDT, Height, 54, kg, 02/07/23 16:21:00 EDT, Dry Weight Start Date: 06/25/24 Status: Ordered Quantity: 270.0 Unit: tablet Repeat number: 2 clotrimazole 1% topical cream 1 application, Topically, 2 times a day, # 12 Gm, 1 Refills, Maintenance, 11/25/23 4:01:00 PM EST, Cream, [facility]/pharmacy #1157, Partial fill upon patient [...] 1 Refills, Maintenance, 08/10/24 12:39:00 PM EDT, [facility]/pharmacy #1157, 2 Gm Topically 4 [...] 1 Refills, Maintenance, 04/21/24 4:45:00 PM EDT, [facility]/pharmacy #1157, 163, cm, 01/27/24 16:29:00 [...] DAILY NEEDED, # 15 sprays, 4 Refills, [facility] STORE [id number], 30, INHALE 2 PUFFS INTO EACH NOSTRIL TWICE DAILY NEEDED, 165.1, cm, 10/16/20 15:14:00 EST, Height Start Date: 10/19/20 Status: Ordered Quantity: 15.0 Unit: sprays Repeat number: 1 Lyrica 150 mg oral capsule 1 capsule = 150 mg, By Mouth, 2 times a day, Please d/c pregabalin 75mg daily in AM, # 60 capsule, 0 Refills, Maintenance, 05/25/24 1:58:00 PM EDT, [facility]/pharmacy #1157, [facility] last filled 04/28/24 [...] Maintenance, 09/17/25 9:39:00 AM EST, CR Capsule, [facility]/pharmacy #1157, Partial fill upon patient [...] 1 Refills, Maintenance, 04/05/24 8:31:00 AM EDT, [facility] [id number], 163, cm, 01/27/24 16:29:00 EDT, Height, 54, kg, 02/07/23 16:21:00 EDT, Dry Weight Start Date: 04/05/24 Status: Ordered Quantity: 180.0 Unit: capsule Repeat number: 1 sertraline 25 mg oral tablet 1 tablet = 25 mg, By Mouth, Daily, # 90 tablet, 1 Refills, Maintenance, 07/22/24 2:50:00 PM EDT, Tablet, [facility]/pharmacy #1157, Partial fill upon patient [...] Refills, Soft Stop, 10/12/24 11:03:00 AM EST, [facility]/pharmacy #1157, PT DUE 10-18, 163, [...] 5:43:00 PM EST, 09/20/24 5:43:00 PM EST, [facility]/pharmacy #1157, NOT DUE UNTIL 05-25-24, [...] 4:17:00 PM EDT, Route to Pharmacy Electronically, [facility]/pharmacy #1157, 163, cm, 05/25/24 8:51:00 [...] PCO Associate Professional Member Role: PCP Address: [address] [place] [address] Primary Care [place], [place] [address] Telecom: Care Team Related Persons Name: CAILIN RAMIREZ Insurance Providers Guarantor name: NIYA ASHLEY Health Plan Information #: 1 Payer: AETNA NON HMO PLANS Member Number: NA Policy Number: NA Group Number: NA Health Plan Information #: 2 Payer: I10 MEDICARE SUPPL 2NDRY Member Number: NA Policy Number: NA Group Number: NA
--- OUTSIDE RECORDS SUMMARY | 2024-10-20 13:08 | XMS_ITS | Continuity of Care Document ---
Author Organization [facility] ter Address [address] [place] [address]- Care Team Providers Care Cath Lab Radiology Technician Name Role Phone Megan KHOURY, Diana Allen Primary Care Physician Encounter 10/17/24 - 10/18/[address] [address] Attending Physician: Not on Staff, Attending MD Referring Physician: Not on Staff, Referring MD Encounter Type: [facility] Allergies, Adverse Reactions, Alerts Substance Criticality Severity [...] 08/02/22 Marcelino rded influenza virus vaccine, inactivated 09/03/21 Gi annette influenza virus vaccine, inactivated 07/29/19 Marcelino rded influenza virus vaccine, inactivated 09/05/18 Marcelino rded influenza virus vaccine, inactivated 11/21/17 Marcelino rded RSV vaccine, preF A-preF B, recombinant 2 07/08/24 Recorded pneumococcal 20-valent conjugate vaccine 08/12/23 Recorded [id number] bivalent booster vax 10/14/22 Recorded SARS-CoV-2 (COVID-19) mRNA-1273 vaccine 10/22/21 R ecorded SARS-CoV-2 (COVID-19) mRNA-1273 vaccine 02/28/21 R ecorded SARS-CoV-2 (COVID-19) mRNA-1273 vaccine 01/31/21 R ecorded zoster vaccine, inactivated 3 12/27/20 Recorded zoster vaccine, inactivated 06/21/20 Recorded Influenza Virus Vaccine (oldterm) 07/23/20 Recorde d tetanus/diphtheria/pertussis, acel(Tdap) 05/17/14 Recorded 1Result Comment: [facility]# [id number] 2Result Comment: given at [facility] 3Result Comment: [facility] Medications busPIRone 15 mg oral tablet 1 tablet, By Mouth, 3 times a day, # 270 tablet, 1 Refills, Maintenance, 06/25/24 4:18:00 PM EDT, [facility]/pharmacy #1157, 163, cm, 05/25/24 8:51:00 EDT, Height, 54, kg, 02/07/23 16:21:00 EDT, Dry Weight Start Date: 06/25/24 Status: Ordered Quantity: 270.0 Unit: tablet Repeat number: 2 clotrimazole 1% topical cream 1 application, Topically, 2 times a day, # 12 Gm, 1 Refills, Maintenance, 11/25/23 4:01:00 PM EST, Cream, [facility]/pharmacy #1157, Partial fill upon patient request if [...] 1 Refills, Maintenance, 08/10/24 12:39:00 PM EDT, [facility]/pharmacy #1157, 2 Gm Topically 4 times a day, 163, cm, 05/25/24 8:51:00 EDT, Height, 54, kg, 02/07/23 16:21:00 EDT, Dry Weight Start Date: 08/10/24 Status: Ordered Quantity: 200.0 Unit: g Repeat number: 2 diclofenac sodium 75 mg oral delayed release tablet 1 tablet, By Mouth, 2 times a day, PRN NEEDED FOR PAIN, # 60 tablet, 1 Refills, Maintenance, 04/21/24 4:45:00 PM EDT, [facility]/pharmacy #1157, 163, cm, 01/27/24 16:29:00 EDT, Height, [...] DAILY NEEDED, # 15 sprays, 4 Refills, [facility] STORE [id number], 30, INHALE 2 PUFFS INTO EACH NOSTRIL [...] Maintenance, 09/17/25 9:39:00 AM EST, CR Capsule, [facility]/pharmacy #1157, Partial fill upon patient request if [...] 1 Refills, Maintenance, 04/05/24 8:31:00 AM EDT, [facility] [id number], 163, cm, 01/27/24 16:29:00 EDT, Height, 54, kg, 02/07/23 16:21:00 EDT, Dry Weight Start Date: 04/05/24 Status: Ordered Quantity: 180.0 Unit: capsule Repeat number: 1 sertraline 25 mg oral tablet 1 tablet = 25 mg, By Mouth, Daily, # 90 tablet, 1 Refills, Maintenance, 07/22/24 2:50:00 PM EDT, Tablet, [facility]/pharmacy #1157, Partial fill upon patient request if [...] 0 Refills, Maintenance, 12/24/23 2:25:00 PM EST, [facility]/pharmacy #1157, 163, cm, 12/17/23 12:53:00 EST, Height, [...] Refills, Soft Stop, 10/12/24 11:03:00 AM EST, [facility]/pharmacy #1157, PT DUE 12-16, 163, cm, 08/18/24 14:29:00 EDT, Height, 54, kg, 02/07/23 16:21:00 EDT, Dry Weight Start Date: 10/12/24 Stop Date: 11/09/24 Status: Ordered Quantity: 224.0 Unit: tablet Repeat number: 1 traZODone 100 mg oral tablet 2, tablet, By Mouth, Daily at bedtime, # 180 tablet, Refills 1, Tot. Refills 1, Maintenance, 06/25/24 4:17:00 PM EDT, Route to Pharmacy Electronically, [facility]/pharmacy #1157, 163, cm, 05/25/24 8:51:00 EDT, Height, [...] PCO Associate Professional Member Role: PCP Address: [address] [place] [address] Primary [place], [place] [address] Telecom: Care Team Related Persons Name: CAILIN RAMIREZ Insurance Providers Guarantor name: NIYA RAMIREZ Health Plan Information #: 1 Payer: [employer] NON HMO PLANS Member Number: NA Policy Number: NA Group Number: NA Health Plan Information #: 2 Payer: I10 MEDICARE SUPPL 2ND Member Number: NA Policy Number: NA Group Number: NA
--- OUTSIDE RECORDS SUMMARY | 2024-10-20 13:08 | XMS_ITS | Continuity of Care Document ---
Author Organization [facility] Primary [facility] [place] Address [address] [place] [address]- Care Team Providers Care Arboriculturist Name Role Phone Megan KHOURY, Diana Allen Primary Care Physician Encounter [facility] Date(s): 09/17/24 - 10/17/24 [facility] [place] [address] [place], [place] [address] Encounter Type: Triage Allergies, Adverse Reactions, [...] Recorded pneumococcal 20-valent conjugate vaccine 08/12/23 Recorded [id number] bivalent booster vax 10/14/22 Recorded SARS-CoV-2 (COVID-19) mRNA-1273 vaccine 10/22/21 R ecorded SARS-CoV-2 (COVID-19) mRNA-1273 vaccine 02/28/21 R ecorded SARS-CoV-2 (COVID-19) mRNA-1273 vaccine 01/31/21 R ecorded zoster vaccine, inactivated 3 12/27/20 Recorded zoster vaccine, inactivated 06/21/20 Recorded Influenza Virus Vaccine (oldterm) 07/23/20 Recorde d tetanus/diphtheria/pertussis, acel(Tdap) 05/17/14 Recorded 1Result Comment: [facility]# [id number] 2Result Comment: given at [facility] 3Result Comment: [facility] Medications busPIRone 15 mg oral tablet 1 tablet, By Mouth, 3 times a day, # 270 tablet, 1 Refills, Maintenance, 06/25/24 4:18:00 PM EDT, [facility]/pharmacy #[id number], 163, cm, 05/25/24 8:51:00 EDT, Height, 54, kg, 02/07/23 16:21:00 EDT, Dry Weight Start Date: 06/25/24 Status: Ordered Quantity: 270.0 Unit: tablet Repeat number: 2 clotrimazole 1% topical cream 1 application, Topically, 2 times a day, # 12 Gm, 1 Refills, Maintenance, 11/25/23 4:01:00 PM EST, Cream, [facility]/pharmacy #1157, Partial fill upon patient request if [...] 1 Refills, Maintenance, 08/10/24 12:39:00 PM EDT, [facility]/pharmacy #1157, 2 Gm Topically 4 times a day, 163, cm, 05/25/24 8:51:00 EDT, Height, 54, kg, 02/07/23 16:21:00 EDT, Dry Weight Start Date: 08/10/24 Status: Ordered Quantity: 200.0 Unit: g Repeat number: 2 diclofenac sodium 75 mg oral delayed release tablet 1 tablet, By Mouth, 2 times a day, PRN NEEDED FOR PAIN, # 60 tablet, 1 Refills, Maintenance, 04/21/24 4:45:00 PM EDT, [facility], 163, cm, 01/27/24 16:29:00 EDT, Height, [...] DAILY NEEDED, # 15 sprays, 4 Refills, [id number], 30, INHALE 2 PUFFS INTO EACH NOSTRIL [...] Maintenance, 09/17/25 9:39:00 AM EST, CR Capsule, [facility]/pharmacy #1157, Partial fill upon patient request if [...] Refills, Maintenance, 04/05/24 8:31:00 AM EDT, [id number], 163, cm, 01/27/24 16:29:00 EDT, Height, 54, kg, 02/07/23 16:21:00 EDT, Dry Weight Start Date: 04/05/24 Status: Ordered Quantity: 180.0 Unit: capsule Repeat number: 1 sertraline 25 mg oral tablet 1 tablet = 25 mg, By Mouth, Daily, # 90 tablet, 1 Refills, Maintenance, 07/22/24 2:50:00 PM EDT, Tablet, [facility]/pharmacy #1157, Partial fill upon patient request if [...] 0 Refills, Maintenance, 12/24/23 2:25:00 PM EST, [facility]/pharmacy #1157, 163, cm, 12/17/23 12:53:00 EST, Height, [...] Refills, Soft Stop, 10/12/24 11:03:00 AM EST, [facility]/pharmacy #1157, PT DUE 10-18, 163, cm, 08/18/24 [...] 5:43:00 PM EST, 09/20/24 5:43:00 PM EST, [facility]/pharmacy #[id number], NOT DUE UNTIL 05-25-24, 163, cm, 08/18/24 14:29:00 EDT, Height, 54, kg, 02/07/23 16:21:00 EDT, Dry Weight Start Date: 09/20/24 Stop Date: 10/18/24 Status: Ordered Quantity: 224.0 Unit: tablet Repeat number: 1 traZODone 100 mg oral tablet 2, tablet, By Mouth, Daily at bedtime, # 180 tablet, Refills 1, Tot. Refills 1, Maintenance, 06/25/24 4:17:00 PM EDT, Route to Pharmacy Electronically, [facility]/pharmacy #[id number], 163, cm, 05/25/24 8:51:00 EDT, Height, [...] PCO Associate Professional Member Role: PCP Address: [address] [place] [address] Primary Care [place], [place] [address] Telecom: Care Team Related Persons Name: CAILIN RAMIREZ Insurance Providers Guarantor name: NIYA ASHLEY Health Plan Information #: 1 Payer: [employer] NON HMO PLANS Member Number: NA Policy Number: NA Group Number: NA Health Plan Information #: 2 Payer: I10 MEDICARE SUPPL 2NDRY Member Number: NA Policy Number: NA Group Number: NA
== END 2024-10-20 13:06 | disposition home or self-care (01) ==
LOC: HO.HOSX 13:05
PROVIDERS: Visit Provider Neurological Surgery
DX: S32.009K Unspecified fracture of unspecified lumbar vertebra, subsequent encounter for fracture with nonunion (principal)
CPT/HCPCS: 72110

== ENCOUNTER 2024-10-20 13:25 | Outpatient (AMB) | payer OTHER, MEDICARE, SELFPAY ==
--- NOTE | 2024-10-20 13:37 | HO.SPINEOV ---
Intake Visit Reasons: discuss symptoms Intake Note: Ms. Montenegro is here today to Discuss her symptoms. Inspector Precision Required: No Allergies Penicillins Adverse Reaction (Unknown, Verified 10/20/24 13:57) Patient doesn't recall being allergic Assessment & Plan Assessment & Plan (1) Lumbar pseudoarthrosis: Code(s): S32.009K - Unspecified fracture of unspecified lumbar vertebra, subsequent encounter for fracture with nonunion Category: Medical Plan Dear colleague, On 10/20/2024, I saw for follow-up Ashley Montenegro. She is 4 months out from her L4-S1 lumbar fusion. Unfortunately, she has more pain than preoperatively. Pain is primarily in the lower back in his severe when she changes position from sitting to standing. She is unable to work. She also notices numbness to the outside of her lower legs and ankles. She ambulates with a cane. Takes tramadol and Tylenol. A CT scan is suspicious for hardware failure and we requested a revision surgery from [facility] which was denied so far. We will obtain serial x-rays and will also repeat a CT scan in the new year to assess the hardware status. I filled out short-term disability paperwork today. She will follow-up on 12/01/2024. I spent 15 minutes in his consult to answer questions. Syd Escalera MD, PhD Spine Fellowship Trained Neurosurgeon Director, [facility] [place] [facility] Orders: Orders XR lumbar spine 4V min Today S32.009K - Unspecified fracture of unspecified lumbar vertebra, subsequent encounter for fracture with nonunion Coding Level of Care Code Est Pt Level 2 (16297) Diagnoses Lumbar pseudoarthrosis S32.009K
== END 2024-10-20 14:37 | disposition home or self-care (01) ==
PROVIDERS: PCP Nurse Practitioner Adult Health; Visit Provider Neurological Surgery
DX: S32.009K Unspecified fracture of unspecified lumbar vertebra, subsequent encounter for fracture with nonunion (principal)
CPT/HCPCS: 99212

== ENCOUNTER 2024-12-01 13:19 | Outpatient (REF) | payer OTHER, MEDICARE, SELFPAY ==
--- NOTE | ~2024-12-01 | XR_ITS ---
CLINICAL HISTORY: S32.009K - Unspecified fracture of unspecified lumbar vertebra, subseque... 4 views lumbar spine Comparison: None Findings: Mild rightward curvature of the mid/upper lumbar spine grade 1 anterolisthesis of L4 on L5 and L5 on S1. Posterior fusion hardware at L4-S1. Interbody devices at L4-L5 and L5-S1. No definite change in alignment throughout limited range of motion. No acute fractures or dislocation. Multilevel disc space narrowing and endplate osteophyte formation, as well as facet hypertrophy. IMPRESSION: No acute findings. This document has been electronically signed by: Henry Krishnamurthy MD on 12/02/2024 14:59:39
--- OUTSIDE RECORDS SUMMARY | 2024-12-01 16:21 | XMS_ITS | Clinical Summary ---
Author Organization [facility] Address [address] [place] [address] Phone Care Team Providers Care Corporate Director Of Human Resources Name Role Phone Diana Guzman NP Primary Care Provider [phone] Allergies Active Allergy Reactions Criticality Noted Date [...] PO Take by mouth Active Fexofenadine HCl (CINYD ALLERGY PO) Take by mouth Acti ve [...] complete this topic Insurance [employer] Care Teams Corporate Director Of Human Resources Relationship Specialty Start Date End Date Diana Guzman NP [address] [place] [address] PCP - General 08/20/23
== END 2024-12-01 13:20 | disposition home or self-care (01) ==
LOC: HO.HOSX 13:19
PROVIDERS: PCP Nurse Practitioner Adult Health; Visit Provider Neurological Surgery
DX: S32.009K Unspecified fracture of unspecified lumbar vertebra, subsequent encounter for fracture with nonunion (principal)
CPT/HCPCS: 72110

== ENCOUNTER 2024-12-01 13:19 | Outpatient (AMB) | payer OTHER, MEDICARE, SELFPAY ==
--- NOTE | 2024-12-01 13:21 | A.SPINEOV_ITS ---
Intake Visit Reasons: 6 weeks f/up Intake Note: Ms. Montenegro is here today for a 6 weeks F/u. Nitrogen Operator Required: No Allergies Penicillins Adverse Reaction (Unknown, Verified 12/01/24 13:38) Patient doesn't recall being allergic Assessment & Plan Assessment & Plan (1) Lumbar pseudoarthrosis: Code(s): S32.009K - Unspecified fracture of unspecified lumbar vertebra, subsequent encounter for fracture with nonunion Category: Medical Plan: Dear colleague, On 12/01/2024, I saw for follow-up Ashley Montenegro. As you know she underwent an L4-S1 lumbar fusion to correct an L4-5 lumbar spondylolisthesis and lumbar degenerative disc disease causing back pain and neurogenic claudication. Postoperatively, she complains of her progressive back pain associated with changing positions and turning in bed. Post operative imaging is suspicious for hardware failure, which was again confirmed with today's x-rays.. The patient has not been able to return to work due to the symptoms. Resubmitted for revision of hardware with extension to the L3 segment in attempt to provide more stability for the L4-5 level. Patient is suffering from osteopenia/osteoporosis which is the reason why hardware failures occurring. The peer review stated that there was no instability at L3-4 and therefore the surgery was denied. Obviously, there is no instability at L3-4 and that has not the reason to extend the fusion to L3-4. It is to provide extra stability the L5 region in an attempt to avoid a complete failure of the construct. I will order a CT of the lumbar spine to compare with the 03 of August before requesting another peer to peer. Thank you for allowing me take care of your patient. Syd Escalera MD, PhD Spine Fellowship Trained Neurosurgeon Director, [facility] [place] [facility] Orders: Orders XR lumbar spine 4V min Today S32.009K - Unspecified fracture of unspecified lumbar vertebra, subsequent encounter for fracture with nonunion CT lumbar spine wo IV con Today S32.009K - Unspecified fracture of unspecified lumbar vertebra, subsequent encounter for fracture with nonunion Coding Level of Care Code Est Pt Level 3 (40502) Diagnoses Lumbar pseudoarthrosis S32.009K
--- OUTSIDE RECORDS SUMMARY | 2024-12-01 15:26 | XMS_ITS | Clinical Summary ---
Author Organization [facility] Address [address] [place] [address] Phone Care Team Providers Care Electrical Journeyman Name Role Phone Diana Guzman NP Primary Care Provider [phone] Allergies Active Allergy Reactions Criticality Noted Date Comments Hydroxyzine Other (see comments) Medium 09/22/2023 headaches Medications traMADol (ULTRAM) 50 MG tablet Take 50 mg by mouth every 6 (six) hours if needed for moderate pain Active DICLOFENAC PO Take by mouth Ac tive PREGABALIN PO Take by mouth Ac tive OMEPRAZOLE PO Take by mouth Ac tive IPRATROPIUM-ALB UTEROL IN Inhale Active TRAZODONE HCL PO Take by mouth Active TIZANIDINE HCL PO Take by mouth Active Fexofenadine HCl (CINDY ALLERGY PO) Take by mouth Acti ve BUSPIRONE HCL PO Take by mouth Active Active Problems Problem Noted Date Diagnosed Date Low back pain 08/20/2023 Spondylolisthesis 08/20/2023 Hypertension 08/20/2023 Social History Tobacco Use Types Packs/Day Years Used Date Smoking Tobacco: Never Assessed Comments Unknown Sex and Gender Information Value Date Recorded Sex Assigned at Not on file Legal Sex Female 2:38 PM EDT Gender Identity Not on file Sexual Orientation Not on file Last Filed Vital Signs Vital Sign Reading Time Taken Comments Blood Pressure 138/76 09/22/2023 9:04 AM EST Pulse 80 09/22/2023 9:04 AM EST Temperature 36.3 ??C (97.4 ??F) 09/22/2023 9:04 AM ES T Respiratory Rate 16 09/22/2023 9:04 AM EST Oxygen Saturation 98% 09/22/2023 9:04 AM EST Inhaled Oxygen Concentration - - Weight 59 kg (130 lb) 09/22/2023 9:04 AM EST Height 165.1 cm (5' 5 ) 09/22/2023 9:04 AM EST Body Mass Index 21.63 09/22/2023 9:04 AM EST Plan of Treatment Health Maintenance Due Date Last Done Comments Breast Cancer Screening 1955 Colorectal Cancer Screening: Annual FOBT 2005 Colorectal Cancer Screening: Colonoscopy 2005 Colorectal Cancer Screening: Sigmoidoscopy 2005 Pneumococcal Vaccine: 65+ Ye ars (1 of 1 - PCV) 2021 Influenza Vaccine (#1) 2024 07/23/2020 Hepatitis B Vaccine Aged Out No longe r eligible based on patient's age to complete this topic Insurance AETNA Care Teams Electrical Journeyman Relationship Specialty Start Date End Date Diana Guzman NP [address] [place] [address] PCP - General 08/20/23
--- OUTSIDE RECORDS SUMMARY | 2024-12-01 15:26 | XMS_ITS | Continuity of Care Document ---
Author Organization [facility] Primary [facility] [place] Address [address] [place] [address]- Care Team Providers Care Pancake Professional Name Role Phone Megan KHOURY, Diana Allen Primary Care Physician Encounter [facility] Date(s): 10/12/24 - 11/11/24 [facility] Care [place] [address] [place], [place] [address] Encounter Type: Triage Allergies, Adverse Reactions, [...] Recorded pneumococcal 20-valent conjugate vaccine 08/12/23 Recorded [id number] bivalent booster vax 10/14/22 Recorded SARS-CoV-2 (COVID-19) mRNA-1273 vaccine 10/22/21 R ecorded SARS-CoV-2 (COVID-19) mRNA-1273 vaccine 02/28/21 R ecorded SARS-CoV-2 (COVID-19) mRNA-1273 vaccine 01/31/21 R ecorded zoster vaccine, inactivated 3 12/27/20 Recorded zoster vaccine, inactivated 06/21/20 Recorded Influenza Virus Vaccine (oldterm) 07/23/20 Recorde d tetanus/diphtheria/pertussis, acel(Tdap) 05/17/14 Recorded 1Result Comment: [facility]# [id number] 2Result Comment: given at [facility] 3Result Comment: [facility] Medications azithromycin 250 mg oral tablet See Instructions, Take 2 tablets on day 1 and 1 tablet daily for next 4 days, # 6 tablet, 0 Refills, Maintenance, 11/05/24 6:07:00 PM EST, Tablet, [facility], Partial fill upon patient request if the prescription is for a schedule II opioid drug., 163, cm, 11/05/24 17:58:00 EST, Height, 54, kg, 02/07/23 16:21:00 EDT, Dry Weight Start Date: 11/05/24 Status: Ordered Quantity: 6.0 Unit: tablet Repeat number: 1 Indication: Acute bronchitis, unspecified benzonatate 100 mg oral capsule 1 capsule = 100 mg, By Mouth, 3 times a day, PRN as needed for cough, for 7 days, # 21 capsule, 0 Refills, Acute 11/12/24 6:07:00 PM EST, 11/05/24 6:07:00 PM EST, Capsule, [facility]/pharmacy #1157, Partial fill upon patient request if the prescription is for a schedule II opioid drug., 163, cm, 11/05/24 17:58:00 EST, Height, 54, kg, 02/07/23 16:21:00 EDT, Dry Weight Start Date: 11/05/24 Stop Date: 11/12/24 Status: Ordered Quantity: 21.0 Unit: capsule Repeat number: 1 Indication: Acute bronchitis, unspecified busPIRone 15 mg oral tablet 1 tablet, By Mouth, 3 times a day, # 270 tablet, 1 Refills, Maintenance, 06/25/24 4:18:00 PM EDT, [facility], 163, cm, 05/25/24 8:51:00 EDT, Height, 54, kg, 02/07/23 16:21:00 EDT, Dry Weight Start Date: 06/25/24 Status: Ordered Quantity: 270.0 Unit: tablet Repeat number: 2 clotrimazole 1% topical cream 1 application, Topically, 2 times a day, # 12 Gm, 1 Refills, Maintenance, 11/25/23 4:01:00 PM EST, Cream, [facility]/pharmacy #1157, Partial fill upon patient request if [...] number: 1 cyclobenzaprine 10 mg oral tablet 1, tablet, By Mouth, Daily at bedtime, PRN, # 30 tablet, Refills 0, Maintenance, NEEDED FOR SPASM, 11/02/24 10:09:00 AM EST, Route to Pharmacy Electronically, [facility] STORE [id number], 163, cm, 08/18/24 14:29:00 EDT, Height, 54, kg, 02/07/23 16:21:00 EDT, Dry Weight Start Date: 11/02/24 Status: Ordered Quantity: 30.0 Unit: tablet Repeat number: 1 diclofenac 1% topical gel = 2 Gm, Topically, 4 times a day, # 200 Gm, 1 Refills, Maintenance, 08/10/24 12:39:00 PM EDT, [facility]/pharmacy #1157, 2 Gm Topically 4 times a day, 163, cm, 05/25/24 8:51:00 EDT, Height, 54, kg, 02/07/23 16:21:00 EDT, Dry Weight Start Date: 08/10/24 Status: Ordered Quantity: 200.0 Unit: g Repeat number: 2 diclofenac sodium 75 mg oral delayed release tablet 1 tablet, By Mouth, 2 times a day, PRN NEEDED FOR PAIN, # 60 tablet, 1 Refills, Maintenance, 04/21/24 4:45:00 PM EDT, [facility]/pharmacy #1157, 163, cm, 01/27/24 16:29:00 EDT, Height, [...] DAILY NEEDED, # 15 sprays, 4 Refills, [facility] [id number], 30, INHALE 2 PUFFS INTO EACH NOSTRIL TWICE DAILY NEEDED, 165.1, cm, 10/16/20 15:14:00 EST, Height Start Date: 10/19/20 Status: Ordered Quantity: 15.0 Unit: sprays Repeat number: 1 Lyrica 150 mg oral capsule 1 capsule = 150 mg, By Mouth, 2 times a day, Please d/c pregabalin 75mg daily in AM, # 60 capsule, 0 Refills, Maintenance, 05/25/24 1:58:00 PM EDT, [facility]/pharmacy #1157, [facility] last filled 04/28/24 for 30 [...] capsule,3 Refills, Maintenance, 05/25/24 9:27:00 AM EDT, [facility]/pharmacy #1157, [facility] last filled 03/02/24, 163, cm, [...] Maintenance, 09/17/25 9:39:00 AM EST, CR Capsule, [facility]/pharmacy #1157, Partial fill upon patient request if [...] 1 Refills, Maintenance, 04/05/24 8:31:00 AM EDT, [facility] [id number], 163, cm, 01/27/24 16:29:00 EDT, Height, 54, kg, 02/07/23 16:21:00 EDT, Dry Weight Start Date: 04/05/24 Status: Ordered Quantity: 180.0 Unit: capsule Repeat number: 1 Pulmicort Flexhaler 180 mcg 1 puffs, Inhalation, 2 times a day, # 1 each, 1 Refills, Maintenance, 11/05/24 6:07:00 PM EST, [facility]/pharmacy #1157, Partial fill upon patient request if the prescription is for a schedule II opioid drug., 1 puffs Inhalation 2 times a day,x30 days, 163, cm, 11/05/24 17:58:00 EST, Height, 54, kg, 02/07/23 16:21:00 EDT, Dry Weight Start Date: 11/05/24 Stop Date: 01/04/25 Status: Ordered Quantity: 1.0 Unit: each Repeat number: 2 Indication: Acute bronchitis, unspecified sertraline 25 mg oral tablet 1 tablet = 25 mg, By Mouth, Daily, # 90 tablet, 1 Refills, Maintenance, 07/22/24 2:50:00 PM EDT, Tablet, [facility]/pharmacy #1157, Partial fill upon patient request if [...] 0 Refills, Maintenance, 12/24/23 2:25:00 PM EST, [facility]/pharmacy #1157, 163, cm, 12/17/23 12:53:00 EST, Height, [...] Refills, Soft Stop, 10/12/24 11:03:00 AM EST, [facility]/pharmacy #1157, PT DUE 12-16, 163, cm, 08/18/24 14:29:00 EDT, Height, 54, kg, 02/07/23 16:21:00 EDT, Dry Weight Start Date: 10/12/24 Stop Date: 11/09/24 Status: Ordered Quantity: 224.0 Unit: tablet Repeat number: 1 traZODone 100 mg oral tablet 2, tablet, By Mouth, Daily at bedtime, # 180 tablet, Refills 1, Tot. Refills 1, Maintenance, 06/25/24 4:17:00 PM EDT, Route to Pharmacy Electronically, [facility]/pharmacy #1157, 163, cm, 05/25/24 8:51:00 EDT, Height, 54, kg, 02/07/23 16:21:00 EDT, Dry Weight Start Date: 06/25/24 Status: Ordered Quantity: 180.0 Unit: tablet Repeat number: 2 Vitamin B12 1000 mcg oral tablet 1 tablet = 1,000 mcg, By Mouth, Daily, 0 Refills, Maintenance, 05/14/23 5:45:00 PM EDT, Partial fillupon patient request if the prescription is for a schedule II opioid drug. Start Date: 7/12/23 Status: Ordered Repeat number: 1 Problem List [...] PCO Associate Professional Member Role: PCP Address: [address] [place] [address] Telecom: Care Team Related Persons Name: CAILIN RAMIREZ Insurance Providers Guarantor name: NIYA RAMIREZ Health Plan Information #: 1 Payer: AETNA NON HMO PLANS Member Number: NA Policy Number: NA Group Number: NA Health Plan Information #: 2 Payer: I10 MEDICARE SUPPL 2NDRY Member Number: NA Policy Number: NA Group Number: NA
--- OUTSIDE RECORDS SUMMARY | 2024-12-01 15:26 | XMS_ITS | Continuity of Care Document ---
Author Organization [facility] Primary [facility] [place] Address [address] [place] [address]- Care Team Providers Care Crusher Supervisor Name Role Phone Megan KHOURY, Diana Allen Primary Care Physician [phone] Encounter [facility] Date(s): 10/12/24 - 11/11/24 [facility] [place] [address] [place], [place] [address] Encounter Type: Triage Allergies, Adverse Reactions, [...] Recorded pneumococcal 20-valent conjugate vaccine 08/12/23 Recorded [id number] bivalent booster vax 10/14/22 Recorded SARS-CoV-2 (COVID-19) mRNA-1273 vaccine 10/22/21 R ecorded SARS-CoV-2 (COVID-19) mRNA-1273 vaccine 02/28/21 R ecorded SARS-CoV-2 (COVID-19) mRNA-1273 vaccine 01/31/21 R ecorded zoster vaccine, inactivated 3 12/27/20 Recorded zoster vaccine, inactivated 06/21/20 Recorded Influenza Virus Vaccine (oldterm) 07/23/20 Recorde d tetanus/diphtheria/pertussis, acel(Tdap) 05/17/14 Recorded 1Result Comment: [facility]# [id number] 2Result Comment: given at [facility] 3Result Comment: [facility] Medications azithromycin 250 mg oral tablet See [...] PM EST, 11/05/24 6:07:00 PM EST, Capsule, [facility]/pharmacy #1157, Partial fill upon [...] Refills, Maintenance, 11/25/23 4:01:00 PM EST, Cream, [facility]/pharmacy #1157, Partial fill upon [...] 10:09:00 AM EST, Route to Pharmacy Electronically, [facility] STORE [id number], 163, cm, 08/18/24 14:29:00 EDT, Height, 54, kg, 02/07/23 16:21:00 EDT, Dry Weight Start Date: 11/02/24 Status: Ordered Quantity: 30.0 Unit: tablet Repeat number: 1 diclofenac 1% topical gel = 2 Gm, Topically, 4 times a day, # 200 Gm, 1 Refills, Maintenance, 08/10/24 12:39:00 PM EDT, [facility]/pharmacy #1157, 2 Gm Topically [...] 1 Refills, Maintenance, 04/21/24 4:45:00 PM EDT, [facility]/pharmacy #1157, 163, cm, 01/27/24 [...] DAILY NEEDED, # 15 sprays, 4 Refills, [facility], 30, INHALE 2 PUFFS INTO EACH NOSTRIL TWICE DAILY NEEDED, 165.1, cm, 10/16/20 15:14:00 EST, Height Start Date: 10/19/20 Status: Ordered Quantity: 15.0 Unit: sprays Repeat number: 1 Lyrica 150 mg oral capsule 1 capsule = 150 mg, By Mouth, 2 times a day, Please d/c pregabalin 75mg daily in AM, # 60 capsule, 0 Refills, Maintenance, 05/25/24 1:58:00 PM EDT, [facility]/pharmacy #1157, [facility] last filled [...] capsule,3 Refills, Maintenance, 05/25/24 9:27:00 AM EDT, [facility]/pharmacy #1157, [facility] last filled 03/02/24, 163, cm, [...] Maintenance, 09/17/25 9:39:00 AM EST, CR Capsule, [facility]/pharmacy #1157, Partial fill upon [...] 1 Refills, Maintenance, 04/05/24 8:31:00 AM EDT, [facility] [id number], 163, cm, 01/27/24 16:29:00 EDT, Height, 54, kg, 02/07/23 16:21:00 EDT, Dry Weight Start Date: 04/05/24 Status: Ordered Quantity: 180.0 Unit: capsule Repeat number: 1 Pulmicort Flexhaler 180 mcg 1 puffs, Inhalation, 2 times a day, # 1 each, 1 Refills, Maintenance, 11/05/24 6:07:00 PM EST, [facility]/pharmacy #1157, Partial fill upon [...] Refills, Maintenance, 07/22/24 2:50:00 PM EDT, Tablet, [facility]/pharmacy #1157, Partial fill upon [...] 0 Refills, Maintenance, 12/24/23 2:25:00 PM EST, [facility]/pharmacy #1157, 163, cm, 12/17/23 12:53:00 [...] Refills, Soft Stop, 10/12/24 11:03:00 AM EST, [facility]/pharmacy #1157, PT DUE 12-16, 163, cm, 08/18/24 14:29:00 EDT, Height, 54, kg, 02/07/23 16:21:00 EDT, Dry Weight Start Date: 10/12/24 Stop Date: 11/09/24 Status: Ordered Quantity: 224.0 Unit: tablet Repeat number: 1 traZODone 100 mg oral tablet 2, tablet, By Mouth, Daily at bedtime, # 180 tablet, Refills 1, Tot. Refills 1, Maintenance, 06/25/24 4:17:00 PM EDT, Route to Pharmacy Electronically, [facility]/pharmacy #1157, 163, cm, 05/25/24 [...] PCO Associate Professional Member Role: PCP Address: [address] [place] [address] Telecom: Care Team Related Persons Name: CAILIN RAMIREZ Insurance Providers Guarantor name: NIYA RAMIREZ Health Plan Information #: 1 Payer: [employer] NON HMO PLANS Member Number: NA Policy Number: NA Group Number: NA Health Plan Information #: 2 Payer: I10 MEDICARE SUPPL 2NDRY Member Number: NA Policy Number: NA Group Number: NA
== END 2024-12-01 15:18 | disposition home or self-care (01) ==
PROVIDERS: PCP Nurse Practitioner Adult Health; Visit Provider Neurological Surgery
DX: S32.009K Unspecified fracture of unspecified lumbar vertebra, subsequent encounter for fracture with nonunion (principal)
CPT/HCPCS: 99213

== ENCOUNTER → 2024-12-01 14:13 | Outpatient (BNV) | payer OTHER, MEDICARE, SELFPAY | PROVIDERS: PCP Nurse Practitioner Adult Health; Visit Provider Radiology Diagnostic Radiology | DX: S32.009K Unspecified fracture of unspecified lumbar vertebra, subsequent encounter for fracture with nonunion (principal) | CPT/HCPCS: 72110 ==

== ENCOUNTER 2024-12-29 08:56 | Outpatient (REF) | payer OTHER, MEDICARE, SELFPAY ==
--- NOTE | ~2024-12-29 | CT_ITS ---
CLINICAL HISTORY: S32.009K - Unspecified fracture of unspecified lumbar vertebra, subseque... CT lumbar spine without contrast Comparison: None Findings: Spinal fusion hardware is seen from L4 through L5 S1 with spacers at the L4-5 and L5-S1 levels. There is mild spondylolisthesis at L4-5. There is relatively severe spinal stenosis at the L4-5. No acute fractures or dislocations. No significant degenerative change. Visualized abdominal contents unremarkable. There is a hemangioma involving the T12 vertebra. IMPRESSION: 1. There is a hemangioma involving the T12 vertebra. 2. Postoperative changes with mild spondylolisthesis at L4-5. Associated spinal stenosis at this level. This document has been electronically signed by: Rocco Lechuga MD on 12/29/2024 10:26:08
--- OUTSIDE RECORDS SUMMARY | 2024-12-29 09:45 | XMS_ITS | Clinical Summary ---
Author Organization [facility] Address [address] [place] [address] Phone Care Team Providers Care Research Attorney Name Role Phone Diana Guzman NP Primary Care Provider [phone] Allergies Active Allergy Reactions Criticality Noted Date [...] complete this topic Insurance AETNA Care Teams Research Attorney Relationship Specialty Start Date End Date Diana Guzman NP [address] [place] [address] PCP - General 08/20/23
== END 2024-12-29 08:57 | disposition home or self-care (01) ==
LOC: HO.CT 08:56
PROVIDERS: PCP Nurse Practitioner Adult Health; Visit Provider Neurological Surgery
DX: S32.009A Unspecified fracture of unspecified lumbar vertebra, initial encounter for closed fracture (principal)
CPT/HCPCS: 72131

== ENCOUNTER → 2024-12-29 08:57 | Outpatient (BNV) | payer OTHER, MEDICARE, SELFPAY | PROVIDERS: PCP Nurse Practitioner Adult Health; Visit Provider Radiology Diagnostic Radiology | DX: S32.009K Unspecified fracture of unspecified lumbar vertebra, subsequent encounter for fracture with nonunion (principal) | CPT/HCPCS: 72131 ==

== ENCOUNTER 2024-12-31 13:19 | Outpatient (AMB) | payer OTHER, MEDICARE, SELFPAY ==
--- NOTE | 2024-12-31 13:56 | HO.SPINEOV ---
Intake Visit Reasons: F/u CT scan Intake Note: Ms. Montenegro is here today to F/u on the results to her CT. Director Of Healthcare Systems Required: No Allergies Penicillins Adverse Reaction (Unknown, Verified 12/31/24 13:57) Patient doesn't recall being allergic Assessment & Plan Assessment & Plan (1) Lumbar stenosis with neurogenic claudication: Code(s): M48.062 - Spinal stenosis, lumbar region with neurogenic claudication Category: Medical Plan Dear colleague, On 12/31/2024, I saw for follow-up Ashley Montenegro to review a CT of the lumbar spine. A CT scan of 08/25/2024 were suggestive of hardware failure. Clinically the patient was and is doing poorly in his complaining of severe back pain. We decided to repeat the CT scan and a repeat CT scan shows no indication of progressive hardware failure. Therefore a revision surgery for pseudoarthrosis is currently not indicated. The patient does complain of radiating pain and numbness down her legs with walking and standing and the CT scan is suspicious for severe L4-5 ongoing stenosis. Therefore, I am going to order an MRI of the lumbar spine to confirm this diagnosis. The patient will return after the MRI is done. She is aware that if a lumbar decompression needs to be done that this will most likely not affect the back pain symptom. The back pain is most severe with extension. I spent 20 minutes in his consult to discuss the CT findings and answering questions. Thank you for allowing me take care of your patient. I will keep you updated on her clinical situation. Syd Escalera MD, PhD Spine Fellowship Trained Neurosurgeon Director, [facility] Orders: Orders MR lumbar spine wo con Today M48.062 - Spinal stenosis, lumbar region with neurogenic claudication Coding Level of Care Code Est Pt Level 3 (89315) Diagnoses Lumbar stenosis with neurogenic claudication M48.062
--- OUTSIDE RECORDS SUMMARY | 2024-12-31 15:22 | XMS_ITS | Continuity of Care Document ---
Author Organization [facility] Primary [facility] [place] Address [address] [place] [address]- Care Team Providers Care Political Reporter Name Role Phone Megan KHOURY, Diana Allen Primary Care Physician Encounter [facility] Date(s): 11/16/24 - 12/16/24 [facility] [place] [address] [place], [place] [address] Encounter Type: Triage Allergies, Adverse [...] Recorded pneumococcal 20-valent conjugate vaccine 08/12/23 Recorded [id number] bivalent booster vax 10/14/22 Recorded SARS-CoV-2 (COVID-19) mRNA-1273 vaccine 10/22/21 R ecorded SARS-CoV-2 (COVID-19) mRNA-1273 vaccine 02/28/21 R ecorded SARS-CoV-2 (COVID-19) mRNA-1273 vaccine 01/31/21 R ecorded zoster vaccine, inactivated 3 12/27/20 Recorded zoster vaccine, inactivated 06/21/20 Recorded Influenza Virus Vaccine (oldterm) 07/23/20 Recorde d tetanus/diphtheria/pertussis, acel(Tdap) 05/17/14 Recorded 1Result Comment: [facility]# [id number] 2Result Comment: given at [facility] 3Result Comment: [facility] Medications busPIRone 15 mg oral tablet 1 tablet, By Mouth, 3 times a day, # 270 tablet, 1 Refills, Maintenance, 06/25/24 4:18:00 PM EDT, [facility]/pharmacy #[id number], 163, cm, 05/25/24 8:51:00 EDT, Height, 54, kg, 02/07/23 16:21:00 EDT, Dry Weight Start Date: 06/25/24 Status: Ordered Quantity: 270.0 Unit: tablet Repeat number: 2 CeleBREX 200 mg oral capsule 1 capsule = 200 mg, By Mouth, 2 times a day, PRN Pain , Moderate, # 60 capsule, 3 Refills, Maintenance, 12/02/24 11:25:00 AM EST, Capsule, [facility]/pharmacy #1157, Partial fill upon patient request if the prescription is for a schedule II opioid drug., 163, cm, 12/02/24 10:53:00 EST, Height, 54, kg, 02/07/23 16:21:00 EDT, Dry Weight Start Date: 12/02/24 Stop Date: 04/01/25 Status: Ordered Quantity: 60.0 Unit: capsule Repeat number: 4 Indication: Arthrodesis status Compression Stockings See Instructions, # 3 pair, Maintenance, DX: CVI surgical, calf length 20-30 mm Hg, 06/08/19 8:47:56 AM EDT, Compound Start Date: 06/08/19 Status: Ordered Quantity: 3.0 Unit: pair Repeat number: 1 cyclobenzaprine 10 mg oral tablet 1, tablet, By Mouth, Daily at bedtime, PRN, # 30 tablet, Refills 0, Tot. Refills 0, Maintenance, ASNEEDED FOR SPASM, 11/30/24 10:22:00 PM EST, Route to Pharmacy Electronically, [facility]/pharmacy #[id number], 163, cm, 11/05/24 17:58:00 EST, Height, 54, kg, 02/07/23 16:21:00 EDT, Dry Weight Start Date: 11/30/24 Status: Ordered Quantity: 30.0 Unit: tablet Repeat number: 1 diclofenac 1% topical gel = 2 Gm, Topically, 4 times a day, # 200 Gm, 1 Refills, Maintenance, 08/10/24 12:39:00 PM EDT, [facility], 2 Gm Topically 4 times a day, 163, cm, 05/25/24 8:51:00 EDT, Height, 54, kg, 02/07/23 16:21:00 EDT, Dry Weight Start Date: 08/10/24 Status: Ordered Quantity: 200.0 Unit: g Repeat number: 2 estradiol 1 mg/1 g (0.1%) transdermal gel See Instructions, 1 each Topically 3 times per week, 0 Refills, Maintenance, 06/28/20 8:05:00 AM EDT Start Date: 06/28/20 Status: Ordered Repeat number: 1 ipratropium nasal 42 mcg/inh spray See Instructions, INHALE 2 PUFFS INTO EACH NOSTRIL TWICE DAILY NEEDED, # 15 sprays, 4 Refills, [id number], 30, INHALE 2 PUFFS INTO EACH NOSTRIL [...] Quantity: 60.0 Unit: capsule Repeat number: 1 omeprazole 40 mg oral enteric coated capsule 2 capsule, By Mouth, Daily, # 180 capsule, 1 Refills, Maintenance, 04/05/24 8:31:00 AM EDT, [facility] [id number], 163, cm, 01/27/24 16:29:00 EDT, Height, 54, kg, 02/07/23 16:21:00 EDT, Dry Weight Start Date: 04/05/24 Status: Ordered Quantity: 180.0 Unit: capsule Repeat number: 1 Pulmicort Flexhaler 180 mcg 1 puffs, Inhalation, 2 times a day, # 1 each, 1 Refills, Maintenance, 11/05/24 6:07:00 PM EST, [facility]/pharmacy #1157, Partial fill upon patient request [...] Refills, Maintenance, 07/22/24 2:50:00 PM EDT, Tablet, [facility]/pharmacy #1157, Partial fill upon patient request if the prescription is for a schedule II opioid drug., 163, cm, 05/25/24 8:51:00 EDT, Height, 54, kg, 02/07/23 16:21:00 EDT, Dry Weight Start Date: 07/22/24 Status: Ordered Quantity: 90.0 Unit: tablet Repeat number: 2 traMADol 50 mg oral tablet 2 tablet = 100 mg, By Mouth, Every 6 hours, PRN Pain , Severe, masspat checked, # 224 tablet, 0 Refills, Soft Stop, 12/15/24 9:25:00 AM EST, [facility]/pharmacy #1157, PT DUE 12-16, 163, cm, 12/02/24 10:53:00 EST, Height, 54, kg, 02/07/23 16:21:00 EDT, Dry Weight Start Date: 12/15/24 Stop Date: 01/12/25 Status: Ordered Quantity: 224.0 Unit: tablet Repeat number: 1 traZODone 100 mg oral tablet 2, tablet, By Mouth, Daily at bedtime, # 180 tablet, Refills 1, Tot. Refills 1, Maintenance, 06/25/24 4:17:00 PM EDT, Route to Pharmacy Electronically, [facility]/pharmacy #1157, 163, cm, 05/25/24 8:51:00 EDT, [...] PCO Associate Professional Member Role: PCP Address: [address] [place] [address] [place] [address]- Telecom: Care Team Related Persons Name: CAILIN RAMIREZ Insurance Providers Guarantor name: NIYA ZAPIENTACHOAMNA Health Plan Information #: 1 Payer: AETNA NON HMO PLANS Member Number: NA Policy Number: NA Group Number: NA Health Plan Information #: 2 Payer: I10 MEDICARE SUPPL 2NDRY Member Number: NA Policy Number: NA Group Number: NA
--- OUTSIDE RECORDS SUMMARY | 2024-12-31 15:22 | XMS_ITS | Clinical Summary ---
Author Organization [facility] Address [address] [place] [address] Phone Care Team Providers Care Social Media Campaign Manager Name Role Phone Diana Guzman NP Primary Care Provider [phone] Allergies Active Allergy Reactions Criticality Noted Date [...] complete this topic Insurance AETNA Care Teams Social Media Campaign Manager Relationship Specialty Start Date End Date Diana Guzman NP [address] [place] [address] PCP - General 08/20/23
--- OUTSIDE RECORDS SUMMARY | 2024-12-31 15:22 | XMS_ITS | Continuity of Care Document ---
Author Organization [facility] Primary [facility] [place] Address [address] [place] [address]- Care Team Providers Care Blue Crabber Name Role Phone Megan KHOURY, Diana Allen Primary Care Physician Encounter [facility] Date(s): 11/02/24 - 12/02/24 [facility] [place] [address] [place], [place] [address] [...] Recorded pneumococcal 20-valent conjugate vaccine 08/12/23 Recorded [id number] bivalent booster vax 10/14/22 Recorded SARS-CoV-2 (COVID-19) mRNA-1273 vaccine 10/22/21 R ecorded SARS-CoV-2 (COVID-19) mRNA-1273 vaccine 02/28/21 R ecorded SARS-CoV-2 (COVID-19) mRNA-1273 vaccine 01/31/21 R ecorded zoster vaccine, inactivated 3 12/27/20 Recorded zoster vaccine, inactivated 06/21/20 Recorded Influenza Virus Vaccine (oldterm) 07/23/20 Recorde d tetanus/diphtheria/pertussis, acel(Tdap) 05/17/14 Recorded 1Result Comment: [facility]# [id number] 2Result Comment: given at [facility] 3Result Comment: [facility] Medications busPIRone 15 mg oral tablet 1 tablet, By Mouth, 3 times a day, # 270 tablet, 1 Refills, Maintenance, 06/25/24 4:18:00 PM EDT, [facility]/pharmacy #1157, 163, cm, 05/25/24 8:51:00 EDT, Height, 54, kg, 02/07/23 16:21:00 EDT, Dry Weight Start Date: 06/25/24 Status: Ordered Quantity: 270.0 Unit: tablet Repeat number: 2 CeleBREX 200 mg oral capsule 1 capsule = 200 mg, By Mouth, 2 times a day, PRN Pain , Moderate, # 60 capsule, 3 Refills, Maintenance, 12/02/24 11:25:00 AM EST, Capsule, [facility]/pharmacy #1157, Partial fill upon patient request [...] 10:22:00 PM EST, Route to Pharmacy Electronically, [facility]/pharmacy #1157, 163, cm, 11/05/24 17:58:00 EST, Height, 54, kg, 02/07/23 16:21:00 EDT, Dry Weight Start Date: 11/30/24 Status: Ordered Quantity: 30.0 Unit: tablet Repeat number: 1 diclofenac 1% topical gel = 2 Gm, Topically, 4 times a day, # 200 Gm, 1 Refills, Maintenance, 08/10/24 12:39:00 PM EDT, [facility]/pharmacy #1157, 2 Gm Topically 4 times [...] DAILY NEEDED, # 15 sprays, 4 Refills, [id number], 30, INHALE 2 PUFFS INTO EACH NOSTRIL TWICE DAILY NEEDED, 165.1, cm, 10/16/20 15:14:00 EST, Height Start Date: 10/19/20 Status: Ordered Quantity: 15.0 Unit: sprays Repeat number: 1 Lyrica 150 mg oral capsule 1 capsule = 150 mg, By Mouth, 2 times a day, Please d/c pregabalin 75mg daily in AM, # 60 capsule, 0 Refills, Maintenance, 05/25/24 1:58:00 PM EDT, [facility]/pharmacy #1157, [facility] last filled 04/28/24 for 30 days qty 60, 163, cm, 05/25/24 8:51:00 EDT, Height, 54, kg, 02/07/23 16:21:00 EDT, Dry Weight Start Date: 05/25/24 Status: Ordered Quantity: 60.0 Unit: capsule Repeat number: 1 omeprazole 40 mg oral enteric coated capsule 2 capsule, By Mouth, Daily, # 180 capsule, 1 Refills, Maintenance, 04/05/24 8:31:00 AM EDT, [facility] [id number], 163, cm, 01/27/24 16:29:00 EDT, Height, 54, kg, 02/07/23 16:21:00 EDT, Dry Weight Start Date: 04/05/24 Status: Ordered Quantity: 180.0 Unit: capsule Repeat number: 1 Pulmicort Flexhaler 180 mcg 1 puffs, Inhalation, 2 times a day, # 1 each, 1 Refills, Maintenance, 11/05/24 6:07:00 PM EST, [facility]/pharmacy #1157, Partial fill upon patient request [...] Refills, Maintenance, 07/22/24 2:50:00 PM EDT, Tablet, [facility]/pharmacy #1157, Partial fill upon patient request [...] # 224 tablet, 0 Refills, Soft Stop, 11/17/24 9:25:00 AM EST, [facility]/pharmacy #1157, PT DUE 12-16, 163, cm, 11/05/24 17:58:00 EST, Height, 54, kg, 02/07/23 16:21:00 EDT, Dry Weight Start Date: 11/17/24 Stop Date: 12/15/24 Status: Ordered Quantity: 224.0 Unit: tablet Repeat number: 1 traZODone 100 mg oral tablet 2, tablet, By Mouth, Daily at bedtime, # 180 tablet, Refills 1, Tot. Refills 1, Maintenance, 06/25/24 4:17:00 PM EDT, Route to Pharmacy Electronically, [facility]/pharmacy #1157, 163, cm, 05/25/24 8:51:00 EDT, [...] PCO Associate Professional Member Role: PCP Address: [address] [place] [address] [place] [address]- Telecom: Care Team Related Persons Name: CAILIN RAMIREZ Insurance Providers Guarantor name: NIYA ZAPIENKYLIE Health Plan Information #: 1 Payer: AETNA NON HMO PLANS Member Number: NA Policy Number: NA Group Number: NA Health Plan Information #: 2 Payer: I10 MEDICARE SUPPL 2NDRY Member Number: NA Policy Number: NA Group Number: NA
--- OUTSIDE RECORDS SUMMARY | 2024-12-31 15:22 | XMS_ITS | Continuity of Care Document ---
Author Organization [facility] [place] Address [address] [place] [address]- Care Team Providers Care Ent Surgeon Name Role Phone Megan KHOURY, Diana Allen Primary Care Physician Encounter [facility] Date(s): 08/12/24 - 12/10/24 [facility] [place] [address] [place], [place] [address] Attending Physician: Oj Lopez MD Encounter Type: Pre-OutPatient One Time Allergies, [...] Recorded pneumococcal 20-valent conjugate vaccine 08/12/23 Recorded [id number] bivalent booster vax 10/14/22 Recorded SARS-CoV-2 (COVID-19) mRNA-1273 vaccine 10/22/21 R ecorded SARS-CoV-2 (COVID-19) mRNA-1273 vaccine 02/28/21 R ecorded SARS-CoV-2 (COVID-19) mRNA-1273 vaccine 01/31/21 R ecorded zoster vaccine, inactivated 3 12/27/20 Recorded zoster vaccine, inactivated 06/21/20 Recorded Influenza Virus Vaccine (oldterm) 07/23/20 Recorde d tetanus/diphtheria/pertussis, acel(Tdap) 05/17/14 Recorded 1Result Comment: [facility]# [id number] 2Result Comment: given at [facility] 3Result Comment: [facility] Medications busPIRone 15 mg oral tablet 1 tablet, By Mouth, 3 times a day, # 270 tablet, 1 Refills, Maintenance, 06/25/24 4:18:00 PM EDT, [facility]/pharmacy #1157, 163, cm, 05/25/24 8:51:00 EDT, Height, 54, kg, 02/07/23 16:21:00 EDT, Dry Weight Start Date: 06/25/24 Status: Ordered Quantity: 270.0 Unit: tablet Repeat number: 2 CeleBREX 200 mg oral capsule 1 capsule = 200 mg, By Mouth, 2 times a day, PRN Pain , Moderate, # 60 capsule, 3 Refills, Maintenance, 12/02/24 11:25:00 AM EST, Capsule, [facility]/pharmacy #1157, Partial fill upon patient request if [...] 10:22:00 PM EST, Route to Pharmacy Electronically, [facility]/pharmacy #1157, 163, cm, 11/05/24 17:58:00 EST, Height, 54, kg, 02/07/23 16:21:00 EDT, Dry Weight Start Date: 11/30/24 Status: Ordered Quantity: 30.0 Unit: tablet Repeat number: 1 diclofenac 1% topical gel = 2 Gm, Topically, 4 times a day, # 200 Gm, 1 Refills, Maintenance, 08/10/24 12:39:00 PM EDT, [facility]/pharmacy #1157, 2 Gm Topically 4 times a [...] DAILY NEEDED, # 15 sprays, 4 Refills, [facility] STORE [id number], 30, INHALE 2 PUFFS INTO EACH NOSTRIL TWICE DAILY NEEDED, 165.1, cm, 10/16/20 15:14:00 EST, Height Start Date: 10/19/20 Status: Ordered Quantity: 15.0 Unit: sprays Repeat number: 1 Lyrica 150 mg oral capsule 1 capsule = 150 mg, By Mouth, 2 times a day, Please d/c pregabalin 75mg daily in AM, # 60 capsule, 0 Refills, Maintenance, 05/25/24 1:58:00 PM EDT, [facility]/pharmacy #1157, [facility] last filled 04/28/24 for 30 days qty 60, 163, cm, 05/25/24 8:51:00 EDT, Height, 54, kg, 02/07/23 16:21:00 EDT, Dry Weight Start Date: 05/25/24 Status: Ordered Quantity: 60.0 Unit: capsule Repeat number: 1 omeprazole 40 mg oral enteric coated capsule 2 capsule, By Mouth, Daily, # 180 capsule, 1 Refills, Maintenance, 04/05/24 8:31:00 AM EDT, [facility] [id number], 163, cm, 01/27/24 16:29:00 EDT, Height, 54, kg, 02/07/23 16:21:00 EDT, Dry Weight Start Date: 04/05/24 Status: Ordered Quantity: 180.0 Unit: capsule Repeat number: 1 Pulmicort Flexhaler 180 mcg 1 puffs, Inhalation, 2 times a day, # 1 each, 1 Refills, Maintenance, 11/05/24 6:07:00 PM EST, [facility]/pharmacy #1157, Partial fill upon patient request if [...] Refills, Maintenance, 07/22/24 2:50:00 PM EDT, Tablet, [facility]/pharmacy #1157, Partial fill upon patient request if [...] Refills, Soft Stop, 11/17/24 9:25:00 AM EST, [facility]/pharmacy #1157, PT DUE 12-16, 163, cm, 11/05/24 17:58:00 EST, Height, 54, kg, 02/07/23 16:21:00 EDT, Dry Weight Start Date: 11/17/24 Stop Date: 12/15/24 Status: Ordered Quantity: 224.0 Unit: tablet Repeat number: 1 traZODone 100 mg oral tablet 2, tablet, By Mouth, Daily at bedtime, # 180 tablet, Refills 1, Tot. Refills 1, Maintenance, 06/25/24 4:17:00 PM EDT, Route to Pharmacy Electronically, [facility]/pharmacy #1157, 163, cm, 05/25/24 8:51:00 EDT, Height, [...] PCO Associate Professional Member Role: PCP Address: [address] [place] [address] [place] [address]- Telecom: Care Team Related Persons Name: CAILIN RAMIREZ Insurance Providers Guarantor name: [facility] [employer] Plan Information #: 1 Payer: AETNA NON HMO PLANS Member Number: [id number] Policy Number: NA Group Number: [id number] Health Plan Information #: 2 Payer: I10 MEDICARE SUPPL [facility] Member Number: [id number] Policy Number: LUMA Group Number: [id number]
--- OUTSIDE RECORDS SUMMARY | 2024-12-31 15:22 | XMS_ITS | Continuity of Care Document ---
Author Organization [facility] Primary [facility] [place] Address [address] [place] [address]- Care Team Providers Care Music Internship Name Role Phone Megan KHOURY, Diana Allen Primary Care Physician Encounter [facility] Date(s): 11/30/24 - 12/30/24 [facility] [place] [address] [place], [place] [address] Encounter Type: Triage Allergies, Adverse Reactions, [...] Recorded pneumococcal 20-valent conjugate vaccine 08/12/23 Recorded [id number] bivalent booster vax 10/14/22 Recorded SARS-CoV-2 (COVID-19) mRNA-1273 vaccine 10/22/21 R ecorded SARS-CoV-2 (COVID-19) mRNA-1273 vaccine 02/28/21 R ecorded SARS-CoV-2 (COVID-19) mRNA-1273 vaccine 01/31/21 R ecorded zoster vaccine, inactivated 3 12/27/20 Recorded zoster vaccine, inactivated 06/21/20 Recorded Influenza Virus Vaccine (oldterm) 07/23/20 Recorde d tetanus/diphtheria/pertussis, acel(Tdap) 05/17/14 Recorded 1Result Comment: [facility]# [id number] 2Result Comment: given at [facility] 3[facility] Comment[facility] Medications busPIRone 15 mg oral tablet 1 tablet, By Mouth, 3 times a day, # 270 tablet, 1 Refills, Maintenance, 06/25/24 4:18:00 PM EDT, [facility]/pharmacy #1157, 163, cm, 05/25/24 8:51:00 EDT, Height, 54, kg, 02/07/23 16:21:00 EDT, Dry Weight Start Date: 06/25/24 Status: Ordered Quantity: 270.0 Unit: tablet Repeat number: 2 Compression Stockings See Instructions, # 3 pair, Maintenance, DX: CVI surgical, calf length 20-30 mm Hg, 06/08/19 8:47:56 AM EDT, Compound Start Date: 06/08/19 Status: Ordered Quantity: 3.0 Unit: pair Repeat number: 1 cyclobenzaprine 10 mg oral tablet 1, tablet, By Mouth, Daily at bedtime, PRN, OV 4--25, # 30 tablet, Refills 0, Tot. Refills 0, Maintenance, NEEDED FOR SPASM, 12/28/24 2:17:00 PM EST, Route to Pharmacy Electronically, [facility]/pharmacy#1157, 163, cm, 12/21/24 13:52:00 EST, Height, 62.1, kg, 12/21/24 13:44:00 EST, Dry Weight Start Date: 12/28/24 Status: Ordered Quantity: 30.0 Unit: tablet Repeat number: 1 estradiol 1 mg/1 g (0.1%) transdermal gel See Instructions, 1 each Topically 3 times per week, 0 Refills, Maintenance, 06/28/20 8:05:00 AM EDT Start Date: 06/28/20 Status: Ordered Repeat number: 1 ipratropium nasal 42 mcg/inh spray See Instructions, INHALE 2 PUFFS INTO EACH NOSTRIL TWICE DAILY NEEDED, # 15 sprays, 4 Refills, [id number], 30, INHALE 2 PUFFS INTO EACH NOSTRIL TWICE DAILY NEEDED, 165.1, cm, 10/16/20 15:14:00 EST, Height Start Date: 10/19/20 Status: Ordered Quantity: 15.0 Unit: sprays Repeat number: 1 Lyrica 150 mg oral capsule 1 capsule = 150 mg, By Mouth, 2 times a day, # 180 capsule, 0 Refills, Maintenance, 12/27/24 8:49:00AM EST, [facility]/pharmacy #1157, [facility] last filled 04/28/24 for 30 days qty 60, 163, cm, 12/21/24 13:52:00 EST, Height, 62.1, kg, 12/21/24 13:44:00 EST, Dry Weight Start Date: 12/27/24 Stop Date: 03/27/25 Status: Ordered Quantity: 180.0 Unit: capsule Repeat number: 1 Pulmicort Flexhaler 180 mcg 1 puffs, Inhalation, 2 times a day, # 1 each, 1 Refills, Maintenance, 11/05/24 6:07:00 PM EST, [facility]/pharmacy #1157, Partial fill upon patient request [...] Refills, Maintenance, 07/22/24 2:50:00 PM EDT, Tablet, [facility]/pharmacy #1157, Partial fill upon patient request [...] Refills, Soft Stop, 12/15/24 9:25:00 AM EST, [facility]/pharmacy #1157, PT DUE 12-16, 163, cm, 12/02/24 10:53:00 EST, Height, 54, kg, 02/07/23 16:21:00 EDT, Dry Weight Start Date: 12/15/24 Stop Date: 01/12/25 Status: Ordered Quantity: 224.0 Unit: tablet Repeat number: 1 traZODone 100 mg oral tablet 2, tablet, By Mouth, Daily at bedtime, # 180 tablet, Refills 1, Tot. Refills 1, Maintenance, 06/25/24 4:17:00 PM EDT, [facility] 163, cm, 05/25/24 8:51:00 [...] Confirmed Active Chronic narcotic use Confirmed Active Osteopenia Confirmed Active Osteoporosis Confirmed Active Palpitations Confirmed Active Health care maintenance Confirmed Active Moderate recurrent major depression Confirmed Active Seasonal allergies Confirmed Active Urge incontinence Confirmed Active Social History Social History Type Response Smoking Status Never (less than 100 in lifetime); Tobacco user in household: No entered on: 12/09/18 Sex Sex Representation Female (finding) Patient Care team information Care Team Personnel Name: Megan KHOURY, Diana Allen Position: S PCO Associate Professional Member Role: PCP Address: [address] [place] [address] Primary Care [facility] [place] [address] Telecom: Care Team Related Persons Name: CAILIN RAMIREZ Insurance Providers Guarantor name: NIAY CURRYAMNA Health Plan Information #: 1 Payer: AETNA NON HMO PLANS Member Number: NA Policy Number: NA Group Number: NA Health Plan Information #: 2 Payer: MEDICARE PART B OUTPT Member Number: NA Policy Number: NA Group Number: NA
--- OUTSIDE RECORDS SUMMARY | 2024-12-31 15:22 | XMS_ITS | Continuity of Care Document ---
Author Organization [facility] Primary [facility] [place] Address [address] [place] [address]- Care Team Providers Care Keyboarding Clerk Name Role Phone Megan KHOURY, Diana Allen Primary Care Physician Encounter [facility] Date(s): 11/05/24 - 12/05/[address] [address] Encounter Type: Triage Allergies, Adverse Reactions, Alerts [...] Recorded pneumococcal 20-valent conjugate vaccine 08/12/23 Recorded [id number] bivalent booster vax 10/14/22 Recorded SARS-CoV-2 (COVID-19) mRNA-1273 vaccine 10/22/21 R ecorded SARS-CoV-2 (COVID-19) mRNA-1273 vaccine 02/28/21 R ecorded SARS-CoV-2 (COVID-19) mRNA-1273 vaccine 01/31/21 R ecorded zoster vaccine, inactivated 3 12/27/20 Recorded zoster vaccine, inactivated 06/21/20 Recorded Influenza Virus Vaccine (oldterm) 07/23/20 Recorde d tetanus/diphtheria/pertussis, acel(Tdap) 05/17/14 Recorded 1Result Comment: [facility]# [id number] 2Result Comment: given at [facility] 3Result Comment: [facility] Medications busPIRone 15 mg oral tablet 1 tablet, By Mouth, 3 times a day, # 270 tablet, 1 Refills, Maintenance, 06/25/24 4:18:00 PM EDT, [facility]/pharmacy #[id number], 163, cm, 05/25/24 8:51:00 EDT, Height, 54, kg, 02/07/23 16:21:00 EDT, Dry Weight Start Date: 06/25/24 Status: Ordered Quantity: 270.0 Unit: tablet Repeat number: 2 CeleBREX 200 mg oral capsule 1 capsule = 200 mg, By Mouth, 2 times a day, PRN Pain , Moderate, # 60 capsule, 3 Refills, Maintenance, 12/02/24 11:25:00 AM EST, Capsule, [facility]/pharmacy #1157, Partial fill upon patient request [...] 10:22:00 PM EST, Route to Pharmacy Electronically, [facility]/pharmacy #1157, 163, cm, 11/05/24 17:58:00 EST, Height, [...] DAILY NEEDED, # 15 sprays, 4 Refills, [id number], 30, INHALE 2 PUFFS INTO EACH NOSTRIL [...] 1 Refills, Maintenance, 04/05/24 8:31:00 AM EDT, [facility] [id number], 163, cm, 01/27/24 16:29:00 EDT, Height, 54, kg, 02/07/23 16:21:00 EDT, Dry Weight Start Date: 04/05/24 Status: Ordered Quantity: 180.0 Unit: capsule Repeat number: 1 Pulmicort Flexhaler 180 mcg 1 puffs, Inhalation, 2 times a day, # 1 each, 1 Refills, Maintenance, 11/05/24 6:07:00 PM EST, [facility]/pharmacy #1157, Partial fill upon patient request [...] Refills, Maintenance, 07/22/24 2:50:00 PM EDT, Tablet, [facility]/pharmacy #1157, Partial fill upon patient request [...] Refills, Soft Stop, 11/17/24 9:25:00 AM EST, [facility]/pharmacy #1157, PT DUE 12-16, 163, cm, 11/05/24 17:58:00 EST, Height, 54, kg, 02/07/23 16:21:00 EDT, Dry Weight Start Date: 11/17/24 Stop Date: 12/15/24 Status: Ordered Quantity: 224.0 Unit: tablet Repeat number: 1 traZODone 100 mg oral tablet 2, tablet, By Mouth, Daily at bedtime, # 180 tablet, Refills 1, Tot. Refills 1, Maintenance, 06/25/24 4:17:00 PM EDT, Route to Pharmacy Electronically, [facility]/pharmacy #1157, 163, cm, 05/25/24 8:51:00 EDT, [...] Associate Professional Member Role: PCP Address: [address] [place] [address] Primary Care [place] [place] [address]- Telecom: Care Team Related Persons Name: CAILIN RAMIREZ Insurance Providers Guarantor name: NIYA RAMIREZ [employer] Plan Information #: 1 Payer: AETNA NON HMO PLANS Member Number: NA Policy Number: NA Group Number: NA
--- OUTSIDE RECORDS SUMMARY | 2024-12-31 15:22 | XMS_ITS | Continuity of Care Document ---
Author Organization [facility] Primary [facility] [place] Address [address] [place] [address]- Care Team Providers Care Mailroom Associate Name Role Phone Megan KHOURY, Diana Allen Primary Care Physician Encounter [facility] Date(s): 11/30/24 - 12/30/[address] [address] Encounter Type: Triage Allergies, [...] Recorded pneumococcal 20-valent conjugate vaccine 08/12/23 Recorded [id number] bivalent booster vax 10/14/22 Recorded SARS-CoV-2 (COVID-19) mRNA-1273 vaccine 10/22/21 R ecorded SARS-CoV-2 (COVID-19) mRNA-1273 vaccine 02/28/21 R ecorded SARS-CoV-2 (COVID-19) mRNA-1273 vaccine 01/31/21 R ecorded zoster vaccine, inactivated 3 12/27/20 Recorded zoster vaccine, inactivated 06/21/20 Recorded Influenza Virus Vaccine (oldterm) 07/23/20 Recorde d tetanus/diphtheria/pertussis, acel(Tdap) 05/17/14 Recorded 1Result Comment: [facility]# [id number] 2Result Comment: given at [facility] 3Result Comment: [facility] Medications busPIRone 15 mg oral tablet 1 tablet, By Mouth, 3 times a day, # 270 tablet, 1 Refills, Maintenance, 06/25/24 4:18:00 PM EDT, [facility]/pharmacy #1157, 163, cm, 05/25/24 8:51:00 EDT, Height, [...] By Mouth, Daily at bedtime, PRN, OV 4-25, # 30 tablet, Refills 0, Tot. Refills 0, Maintenance, NEEDED FOR SPASM, 12/28/24 2:17:00 PM EST, Route to Pharmacy Electronically, [facility]/pharmacy#1157, 163, cm, 12/21/24 13:52:00 EST, Height, 62.1, [...] DAILY NEEDED, # 15 sprays, 4 Refills, [id number], 30, INHALE 2 PUFFS INTO EACH NOSTRIL TWICE DAILY NEEDED, 165.1, cm, 10/16/20 15:14:00 EST, Height Start Date: 10/19/20 Status: Ordered Quantity: 15.0 Unit: sprays Repeat number: 1 Lyrica 150 mg oral capsule 1 capsule = 150 mg, By Mouth, 2 times a day, # 180 capsule, 0 Refills, Maintenance, 12/27/24 8:49:00AM EST, [facility]/pharmacy #1157, [facility] last filled 04/28/24 for 30 days qty 60, 163, cm, 12/21/24 13:52:00 EST, Height, 62.1, kg, 12/21/24 13:44:00 EST, Dry Weight Start Date: 12/27/24 Stop Date: 03/27/25 Status: Ordered Quantity: 180.0 Unit: capsule Repeat number: 1 Pulmicort Flexhaler 180 mcg 1 puffs, Inhalation, 2 times a day, # 1 each, 1 Refills, Maintenance, 11/05/24 6:07:00 PM EST, [facility]/pharmacy #1157, Partial fill upon patient request if [...] Refills, Maintenance, 07/22/24 2:50:00 PM EDT, Tablet, [facility]/pharmacy #1157, Partial fill upon patient request if [...] Refills, Soft Stop, 12/15/24 9:25:00 AM EST, [facility]/pharmacy #1157, PT DUE 12-16, 163, cm, 12/02/24 10:53:00 EST, Height, 54, kg, 02/07/23 16:21:00 EDT, Dry Weight Start Date: 12/15/24 Stop Date: 01/12/25 Status: Ordered Quantity: 224.0 Unit: tablet Repeat number: 1 traZODone 100 mg oral tablet 2, tablet, By Mouth, Daily at bedtime, # 180 tablet, Refills 1, Tot. Refills 1, Maintenance, 06/25/24 4:17:00 PM EDT, [facility], cm, 05/25/24 8:51:00 EDT, [...] PCO Associate Professional Member Role: PCP Address: [address] [place] [address] Primary Care [facility], [place] [address] Telecom: Care Team Related Persons Name: CAILIN RAMIREZ Insurance Providers Guarantor name: NIYA ASHLEY Health Plan Information #: 1 Payer: AETNA NON HMO PLANS Member Number: NA Policy Number: NA Group Number: NA Health Plan Information #: 2 Payer: MEDICARE PART B OUTPT Member Number: NA Policy Number: NA Group Number: NA
== END 2024-12-31 14:28 | disposition home or self-care (01) ==
PROVIDERS: PCP Nurse Practitioner Adult Health; Visit Provider Neurological Surgery
DX: M48.062 Spinal stenosis, lumbar region with neurogenic claudication (principal)
CPT/HCPCS: 99213

== ENCOUNTER → 2024-12-31 13:19 | Outpatient (BNVA) | payer OTHER, SELFPAY | PROVIDERS: PCP Nurse Practitioner Adult Health; Visit Provider Neurological Surgery ==

== ENCOUNTER 2025-01-05 09:00 | Outpatient (REF) | payer OTHER, MEDICARE, SELFPAY ==
--- NOTE | ~2025-01-05 | MR_ITS ---
EXAMINATION: MR LUMBAR SPINE WITHOUT CONTRAST CLINICAL INFORMATION: Spinal stenosis, lumbar region with neurogenic claudication. COMPARISON: November 25, 2023. TECHNIQUE: MRI of the lumbar spine was obtained using routine sequences without contrast. FINDINGS: Paramagnetic field distortion secondary to metallic hardware for a posterior L4 S1 fusion and intervertebral disc spacers L4-5 and L5-S1. Limited by patient's breathing motion artifact. Last rib-bearing vertebra labeled T12. There is clumping of the neural elements of the thecal sac/filum terminalis from L2 to L4. Grade 1 anterolisthesis L4-5. There is signal abnormality with irregular abnormality involving the alar of the sacrum bilaterally, right greater than the left side. There is a grade 1 retrolisthesis L1 to and likely L2-3 and L3-4 levels. Conus medullaris and at pedicle of T12. T12-L1: No disc herniation. No neuroforamina stenosis. L2-1-2: No disc herniation. No neuroforamina stenosis. L2-3: Broad-based disc bulging. Facet joint hypertrophy. Reduced AP diameter of the thecal sac and neuroforamina. L3-4: Broad-based disc bulging. Facet joint hypertrophy. Reduced AP diameter of the thecal sac and the neural foramina. L4-5: Postsurgical changes. L5-S1: Postsurgical changes. MR/MR lumbar spine wo con IMPRESSION: Acute to subacute fracture, alar of the sacrum bilaterally. 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 Status post posterior fusion L4 S1 and intervertebral disc spacer placement/arthrodesis L4-5 and L5-S1. Grade 1 retrolisthesis L1-L2 3 and L3-4. K[place]ura message to the requesting physician on January 07, 2025 at 9:24 AM. Electronically signed by: Ifeanyi Anderson MD 01/07/2025 09:24 AM [facility]
--- OUTSIDE RECORDS SUMMARY | 2025-01-05 09:49 | XMS_ITS | Clinical Summary ---
Author Organization [facility] Address [address] [place] [address] Phone Care Team Providers Care Layout Operator Name Role Phone Diana Guzman NP Primary Care Provider [phone] Allergies Active Allergy Reactions Criticality Noted Date [...] complete this topic Insurance AETNA Care Teams Layout Operator Relationship Specialty Start Date End Date Diana Guzman NP [address] [place] [address] PCP - General 08/20/23
== END 2025-01-05 09:01 | disposition home or self-care (01) ==
LOC: HO.MRI 09:00
PROVIDERS: PCP Nurse Practitioner Adult Health; Visit Provider Neurological Surgery
DX: M48.062 Spinal stenosis, lumbar region with neurogenic claudication (principal)
CPT/HCPCS: 72148

== ENCOUNTER → 2025-01-05 09:15 | Outpatient (BNV) | payer OTHER, MEDICARE, SELFPAY | PROVIDERS: PCP Nurse Practitioner Adult Health; Visit Provider Radiology Diagnostic Radiology | DX: M48.062 Spinal stenosis, lumbar region with neurogenic claudication (principal) | CPT/HCPCS: 72148 ==

== ENCOUNTER 2025-01-12 14:28 | Outpatient (AMB) | payer OTHER, MEDICARE, SELFPAY ==
--- NOTE | 2025-01-12 14:30 | A.SPINEOV_ITS ---
Intake Visit Reasons: MRI f/u Intake Note: Ms. Montenegro is here today to F/u on the results to her MRI. Anesthesiologist Physician Required: No Allergies Penicillins Adverse Reaction (Unknown, Verified 01/12/25 14:31) Patient doesn't recall being allergic Assessment & Plan Assessment & Plan (1) Bilateral sacral insufficiency fracture: Code(s): M84.48XA - Pathological fracture, other site, initial encounter for fracture Category: Medical Qualifiers: Encounter type: initial encounter Qualified Code(s): M84.48XA - Pathological fracture, other site, initial encounter for fracture Plan Dear colleague, On 01/12/2025 I saw for follow-up Ashley Montenegro. As you know, she is status post L4-S1 lumbar fusion. Unfortunately, the surgery has not provided any relief. In fact, the patient feels worse. Particularly, she is complaining about a pain in the sacral area, right side more than left side that prevents her from standing straight. She also has numbness in her feet. We repeated imaging to look for spinal stenosis L4-5. There is some residual stenosis at L4-5 but it is not severe. However, imaging does reveal bilateral subacute/acute alar insufficiency fractures, right more than left, which explains the pain in the sacral area radiating to both sides, right more than left. This patient is definitely suffering from osteoporosis that is responsible for the development of these fractures. I am going to refer to our pain management team to see if she is a candidate for sacroplasty. She will follow-up with me after. I spent 20 minutes in his consult to discuss the MRI findings and answering questions. Do not hesitate to call me with any questions or concerns. Syd Escalera MD, PhD Spine Fellowship Trained Neurosurgeon Director, [facility] Orders: Referrals Pain Management Referral M84.48XA - Pathological fracture, other site, initial encounter for fracture Coding Level of Care Code Est Pt Level 3 (42378) Diagnoses Bilateral sacral insufficiency fracture, initial encounter M84.48XA Encounter type: initial encounter
--- OUTSIDE RECORDS SUMMARY | 2025-01-12 17:07 | XMS_ITS | Continuity of Care Document ---
Author Organization [facility] Primary [facility] [place] Address [address] [place] [address]- Care Team Providers Care Rn Intern Name Role Phone Megan KHOURY, Diana Allen Primary Care Physician Encounter [facility] Date(s): 12/10/24 - 01/09/25 [facility] Care [place] [address] [place], [place] [address] Encounter Type: Triage Allergies, Adverse Reactions, [...] Recorded pneumococcal 20-valent conjugate vaccine 08/12/23 Recorded [id number] bivalent booster vax 10/14/22 Recorded SARS-CoV-2 (COVID-19) mRNA-1273 vaccine 10/22/21 R ecorded SARS-CoV-2 (COVID-19) mRNA-1273 vaccine 02/28/21 R ecorded SARS-CoV-2 (COVID-19) mRNA-1273 vaccine 01/31/21 R ecorded zoster vaccine, inactivated 3 12/27/20 Recorded zoster vaccine, inactivated 06/21/20 Recorded Influenza Virus Vaccine (oldterm) 07/23/20 Recorde d tetanus/diphtheria/pertussis, acel(Tdap) 05/17/14 Recorded 1Result Comment: [facility]# [id number] 2Result Comment: given at [facility] 3Result Comment: [facility] Medications busPIRone 15 mg oral tablet 1 tablet, By Mouth, 3 times a day, # 270 tablet, 1 Refills, Maintenance, 06/25/24 4:18:00 PM EDT, [facility]/pharmacy #[id number], 163, cm, 05/25/24 8:51:00 EDT, [...] 2:17:00 PM EST, Route to Pharmacy Electronically, [facility]/pharmacy#1157, 163, cm, 12/21/24 13:52:00 EST, Height, 62.1, [...] DAILY NEEDED, # 15 sprays, 4 Refills, [id number], 30, INHALE 2 PUFFS INTO EACH NOSTRIL TWICE DAILY NEEDED, 165.1, cm, 10/16/20 15:14:00 EST, Height Start Date: 10/19/20 Status: Ordered Quantity: 15.0 Unit: sprays Repeat number: 1 Lyrica 150 mg oral capsule 1 capsule = 150 mg, By Mouth, 2 times a day, # 180 capsule, 0 Refills, Maintenance, 12/27/24 8:49:00AM EST, [facility]/pharmacy #1157, [facility] last filled 04/28/24 for 30 days qty 60, 163, cm, 12/21/24 13:52:00 EST, Height, 62.1, kg, 12/21/24 13:44:00 EST, Dry Weight Start Date: 12/27/24 Stop Date: 03/27/25 Status: Ordered Quantity: 180.0 Unit: capsule Repeat number: 1 Pulmicort Flexhaler 180 mcg 1 puffs, Inhalation, 2 times a day, # 1 each, 1 Refills, Maintenance, 11/05/24 6:07:00 PM EST, [facility]/pharmacy #1157, Partial fill upon patient request [...] Refills, Maintenance, 07/22/24 2:50:00 PM EDT, Tablet, [facility]/pharmacy #1157, Partial fill upon patient request [...] Refills, Soft Stop, 12/15/24 9:25:00 AM EST, [facility]/pharmacy #1157, PT DUE 12-16, 163, cm, 12/02/24 10:53:00 EST, Height, 54, kg, 02/07/23 16:21:00 EDT, Dry Weight Start Date: 12/15/24 Stop Date: 01/12/25 Status: Ordered Quantity: 224.0 Unit: tablet Repeat number: 1 traZODone 100 mg oral tablet 2, tablet, By Mouth, Daily at bedtime, # 180 tablet, Refills 1, Tot. Refills 1, Maintenance, 06/25/24 4:17:00 PM EDT, [facility], cm, 05/25/24 8:51:00 EDT, Height, [...] PCO Associate Professional Member Role: PCP Address: [address] [place] [address] Primary Care [facility], [place] [address] Telecom: Care Team Related Persons Name: CAILIN RAMIREZ Insurance Providers Guarantor name: NIYA [facility] Plan Information #: 1 Payer: AETNA NON HMO PLANS Member Number: NA Policy Number: NA Group Number: NA
--- OUTSIDE RECORDS SUMMARY | 2025-01-12 17:07 | XMS_ITS | Continuity of Care Document ---
Author Organization [facility] [place] Address [address] [place] [address]- Care Team Providers Care Obstetrics And Gynecology Professor Name Role Phone Megan KHOURY, Diana Allen Primary Care Physician Encounter [facility] Date(s): 09/08/24 - 01/06/25 [facility] [place] [address] [place], [place] [address] Attending Physician: Oj Lopez MD Encounter Type: [...] Recorded pneumococcal 20-valent conjugate vaccine 08/12/23 Recorded [id number] bivalent booster vax 10/14/22 Recorded SARS-CoV-2 (COVID-19) mRNA-1273 vaccine 10/22/21 R ecorded SARS-CoV-2 (COVID-19) mRNA-1273 vaccine 02/28/21 R ecorded SARS-CoV-2 (COVID-19) mRNA-1273 vaccine 01/31/21 R ecorded zoster vaccine, inactivated 3 12/27/20 Recorded zoster vaccine, inactivated 06/21/20 Recorded Influenza Virus Vaccine (oldterm) 07/23/20 Recorde d tetanus/diphtheria/pertussis, acel(Tdap) 05/17/14 Recorded 1Result Comment: [facility]# [id number] 2Result Comment: given at [facility] 3Result Comment: [facility] Medications busPIRone 15 mg oral tablet 1 tablet, By Mouth, 3 times a day, # 270 tablet, 1 Refills, Maintenance, 06/25/24 4:18:00 PM EDT, [facility]/pharmacy #1157, 163, cm, 05/25/24 8:51:00 EDT, [...] By Mouth, Daily at bedtime, PRN, OV 4-4-25, # 30 tablet, Refills 0, Tot. Refills 0, Maintenance, NEEDED FOR SPASM, 12/28/24 2:17:00 PM EST, Route to Pharmacy Electronically, [facility]/pharmacy#1157, 163, cm, 12/21/24 13:52:00 EST, Height, 62.1, [...] DAILY NEEDED, # 15 sprays, 4 Refills, [id number], 30, INHALE 2 PUFFS INTO EACH NOSTRIL TWICE DAILY NEEDED, 165.1, cm, 10/16/20 15:14:00 EST, Height Start Date: 10/19/20 Status: Ordered Quantity: 15.0 Unit: sprays Repeat number: 1 Lyrica 150 mg oral capsule 1 capsule = 150 mg, By Mouth, 2 times a day, # 180 capsule, 0 Refills, Maintenance, 12/27/24 8:49:00AM EST, [facility]/pharmacy #1157, [facility] last filled 04/28/24 for 30 days qty 60, 163, cm, 12/21/24 13:52:00 EST, Height, 62.1, kg, 12/21/24 13:44:00 EST, Dry Weight Start Date: 12/27/24 Stop Date: 03/27/25 Status: Ordered Quantity: 180.0 Unit: capsule Repeat number: 1 Pulmicort Flexhaler 180 mcg 1 puffs, Inhalation, 2 times a day, # 1 each, 1 Refills, Maintenance, 11/05/24 6:07:00 PM EST, [facility]/pharmacy #1157, Partial fill upon patient request [...] Refills, Maintenance, 07/22/24 2:50:00 PM EDT, Tablet, [facility]/pharmacy #1157, Partial fill upon patient request [...] Refills, Soft Stop, 12/15/24 9:25:00 AM EST, [facility]/pharmacy #1157, PT DUE 12-16, 163, cm, 12/02/24 10:53:00 EST, Height, 54, kg, 02/07/23 16:21:00 EDT, Dry Weight Start Date: 12/15/24 Stop Date: 01/12/25 Status: Ordered Quantity: 224.0 Unit: tablet Repeat number: 1 traZODone 100 mg oral tablet 2, tablet, By Mouth, Daily at bedtime, # 180 tablet, Refills 1, Tot. Refills 1, Maintenance, 06/25/24 4:17:00 PM EDT, Route to Pharmacy Electronically, [facility]/pharmacy #1157, 163, cm, 05/25/24 8:51:00 EDT, [...] PCO Associate Professional Member Role: PCP Address: [address] [place] [address] Primary Care [place], [place] [address] Telecom: Care Team Related Persons Name: CAILIN RAMIREZ Insurance Providers Guarantor name: NIYARAINER ZAPIENKYLIE Health Plan Information #: 2 Payer: I10 MEDICARE SUP[facility] Member Number: [id number] Policy Number: NA Group Number: NA Health Plan Information #: 1 Payer: AETNA NON HMO PLANS Member Number: [id number] Policy Number: NA Group Number: [id number]
--- OUTSIDE RECORDS SUMMARY | 2025-01-12 17:07 | XMS_ITS | Clinical Summary ---
Author Organization [facility] Address [address] [place] [address] Phone Care Team Providers Care Criminal Justice Professor Name Role Phone Diana Guzman NP Primary Care Provider [phone] Allergies Active Allergy Reactions Criticality Noted Date [...] complete this topic Insurance AET[employer] Care Teams Criminal Justice Professor Relationship Specialty Start Date End Date Diana Guzman NP [address] [place] [address] PCP - General 08/20/23
--- OUTSIDE RECORDS SUMMARY | 2025-01-12 17:07 | XMS_ITS | Continuity of Care Document ---
Author Organization [facility] Primary [facility] [place] Address [address] [place] [address]- Care Team Providers Care Metal Mold Dresser Name Role Phone Megan KHOURY, Diana Allen Primary Care Physician Encounter [facility] Date(s): 12/10/24 - 01/09/25 [facility] [place] [address] [place], [place] [address] Encounter Type: Triage Allergies, [...] Recorded pneumococcal 20-valent conjugate vaccine 08/12/23 Recorded [id number] bivalent booster vax 10/14/22 Recorded SARS-CoV-2 (COVID-19) mRNA-1273 vaccine 10/22/21 R ecorded SARS-CoV-2 (COVID-19) mRNA-1273 vaccine 02/28/21 R ecorded SARS-CoV-2 (COVID-19) mRNA-1273 vaccine 01/31/21 R ecorded zoster vaccine, inactivated 3 12/27/20 Recorded zoster vaccine, inactivated 06/21/20 Recorded Influenza Virus Vaccine (oldterm) 07/23/20 Recorde d tetanus/diphtheria/pertussis, acel(Tdap) 05/17/14 Recorded 1Result Comment: [facility]# [id number] 2Result Comment: given at [facility] 3Result Comment: [facility] Medications busPIRone 15 mg oral tablet 1 tablet, By Mouth, 3 times a day, # 270 tablet, 1 Refills, Maintenance, 06/25/24 4:18:00 PM EDT, [facility]/pharmacy #1157, 163, cm, 05/25/24 8:51:00 EDT, [...] 2:17:00 PM EST, Route to Pharmacy Electronically, [facility]/pharmacy#1157, 163, cm, 12/21/24 13:52:00 EST, Height, [...] DAILY NEEDED, # 15 sprays, 4 Refills, [facility], 30, INHALE 2 PUFFS INTO EACH NOSTRIL TWICE DAILY NEEDED, 165.1, cm, 10/16/20 15:14:00 EST, Height Start Date: 10/19/20 Status: Ordered Quantity: 15.0 Unit: sprays Repeat number: 1 Lyrica 150 mg oral capsule 1 capsule = 150 mg, By Mouth, 2 times a day, # 180 capsule, 0 Refills, Maintenance, 12/27/24 8:49:00AM EST, [facility]/pharmacy #1157, [facility] last filled 04/28/24 for 30 days qty 60, 163, cm, 12/21/24 13:52:00 EST, Height, 62.1, kg, 12/21/24 13:44:00 EST, Dry Weight Start Date: 12/27/24 Stop Date: 03/27/25 Status: Ordered Quantity: 180.0 Unit: capsule Repeat number: 1 Pulmicort Flexhaler 180 mcg 1 puffs, Inhalation, 2 times a day, # 1 each, 1 Refills, Maintenance, 11/05/24 6:07:00 PM EST, [facility]/pharmacy #1157, Partial fill upon patient request [...] Refills, Maintenance, 07/22/24 2:50:00 PM EDT, Tablet, [facility]/pharmacy #1157, Partial fill upon patient request [...] Refills, Soft Stop, 12/15/24 9:25:00 AM EST, [facility]/pharmacy #1157, PT DUE 12-16, 163, cm, [...] EDT, [facility], cm, 05/25/24 8:51:00 EDT, Height, [...] PCO Associate Professional Member Role: PCP Address: [address] [place] [address] Primary [facility] [place] [address] Telecom: Care Team Related Persons Name: CAILIN RAMIREZ Insurance Providers Guarantor name: NIYA [facility] Plan Information #: 1 Payer: AET[employer] NON HMO PLANS Member Number: NA Policy Number: NA Group Number: NA
== END 2025-01-12 15:24 | disposition home or self-care (01) ==
LOC: HO.HNS 14:29
PROVIDERS: PCP Nurse Practitioner Adult Health; Visit Provider Neurological Surgery
DX: M84.48XA Pathological fracture, other site, initial encounter for fracture (principal)
CPT/HCPCS: 99213

== ENCOUNTER → 2025-01-12 14:28 | Outpatient (BNVA) | payer OTHER, SELFPAY | PROVIDERS: PCP Nurse Practitioner Adult Health; Visit Provider Neurological Surgery ==

== ENCOUNTER 2025-01-19 13:52 | Outpatient (AMB) | payer OTHER, MEDICARE, SELFPAY ==
--- NOTE | 2025-01-19 14:03 | MHC.OFFVIS ---
Vital Signs 01/19/25 14:05 Height 5 ft 4 in Weight 144 lb BMI 24.7 BP 153/65 H Blood Pressure Location Lt brachial Position Sitting Respiration 16 Pulse 87 Pulse Source Pulse Oximeter Pulse Oximetry (%) 95 Oxygen Delivery Method Room Air Intake Visit Reasons: Pathological fracture, other site CHETAN per Dr Little Allergies Penicillins Adverse Reaction (Unknown, Verified 01/19/25 14:06) Patient doesn't recall being allergic Medication List - Last Reconciled 01/19/25 by Reba Yanez LPN acetaminophen 650 mg PO DAILY PRN buspirone 15 mg PO TID clobetasol 0.05% 1 appl topical 2XW PRN cyanocobalamin (vitamin B-12) ER (Vitamin B-12 ER) 1,000 mcg PO DAILY diclofenac sodium 1% 2 grams topical QID PRN estradiol 0.01%(0.1mg/gram) 1 g vaginal 3XW PRN ibuprofen 800 mg PO Q8H PRN ipratropium bromide 2 sprays intranasal TID loratadine 10 mg PO DAILY [LSO As directed] pregabalin 150 mg PO BID sertraline 25 mg PO DAILY tramadol 100 mg PO Q6H PRN trazodone 200 mg PO BEDTIME PRN HPI Comments Details: Ashley is very pleasant 69 years old female who presents in my office with complains on pain in the most lower portion of the lumbar spine as well as sensation of numbness in the right lower extremity as well as pins and needles patient in the right lower foot as well as left lower foot. She was referred to this office by Dr. Antunez. She had L4-S1 bilateral spinal fusion performed. She had stress fracture of the sacral bones demonstrated on the MRI after the procedure. She reports her pain is being very severe. She can not sleep normally can not do activities of daily living she can not take care of herself but she can not function normally. She is on sick leave. Weather changes in movements aggravate her pain. Topical medications as well as tramadol make her pain slightly better. She reports her pain in terms of tissue damage as jumping, shooting, stabbing, lancinating, pinching, crushing, tingling, stinging, dull, hurting, heavy, spreading, piercing, punishing, killing sensation. Her past medical history significant for heart murmur and anemia as well as fatigue her past surgical history of lumbar fusion as above. She denies smoking cigarettes denies drinking alcohol denies caffeinated beverages denies recreational drugs. COUNT INCLUDES THE [facility] Medical History Anemia Wheezing Seasonal allergies Mild tricuspid valve regurgitation Memory problem Anxiety Palpitations Low vitamin D level Lichen sclerosus Heberden's nodes of both hands Insomnia DJD (degenerative joint disease) of cervical spine DDD (degenerative disc disease), lumbar Chronic narcotic use Depression COVID-19 Elevated cholesterol Murmur Back pain Neck pain Osteopenia Osteoporosis Arthritis HTN (hypertension) Surgical History H/O cardiac catheterization H/O colonoscopy Social History Household Members: Spouse Housing: House Are you a primary critical care clinical nurse specialist to a significant other at home: No Do you presently have visiting nurse or other home services: No Patient Tobacco Use Status: Never used Tobacco service: No Review of Systems Const All systems reviewed & are unremarkable except as noted in HPI and below ENT Reports Normal hearing present Neuro Reports Normal hearing present, Denies Abnormal speech present, Denies confusion and Denies Sensory deficit (Neuro) Psych Denies confusion Physical Exam Vital Signs: Last Vital Signs Pulse 87 01/19/25 14:05 Resp 16 01/19/25 14:05 BP 153/65 H 01/19/25 14:05 Pulse Ox 95 01/19/25 14:05 Oxygen Delivery Method Room Air 01/19/25 14:05 BMI result Body Mass Index 24.7 Const General: no acute distress; No confusion Orientation/consciousness: patient oriented x3 and No confusion Eyes General: appearance normal, both eyes and all related structures Pupils: Equal, round and reactive pupils present EOM: EOMs intact bilaterally Neck Neck: Yes full ROM Chest Chest palpation & inspection: normal inspection of the chest Resp Effort & Inspection: normal respiratory effort, able to speak in complete sentences, normal respiratory pattern, no audible wheezes and no cough Cardio Jugular venous distension: no JVD GI Inspection: Yes normal to inspection Back/Spine/Pelvis Other: Very well-healed scar on the projection of paraspinal intervals L4-S1. Severe tenderness on palpation in projection of the bilateral sacral ala. Neuro General: patient oriented x3, gait normal and No confusion Cranial nerves: Yes CN's II-XII intact bilaterally, Yes Equal, round and reactive pupils present, Yes Normal hearing present and Yes Ability to bilaterally elevate shoulders present Speech: No Abnormal speech present Gait exam (Neuro): Normal gait present Motor exam (neuro): 5/5 motor strength present throughout Sensory Exam: No Sensory deficit (Neuro) Extrem General: No pedal edema Psych Speech and movement: Normal speech and movement present Affect: normal affect Attitude: cooperative Thought process: Normal thought process present Thought content: Normal thought content present Insight: Good insight present (Psych) Judgement: Good judgement present (Psych) Results Reviewed Results Reviewed: MRI of the lumbar spine was obtained using routine sequences without contrast. FINDINGS: Paramagnetic field distortion secondary to metallic hardware for a posterior L4 S1 fusion and intervertebral disc spacers L4-5 and L5-S1. Limited by patient's breathing motion artifact. Last rib-bearing vertebra labeled T12. There is clumping of the neural elements of the thecal sac/filum terminalis from L2 to L4. Grade 1 anterolisthesis L4-5. There is signal abnormality with irregular abnormality involving the alar of the sacrum bilaterally, right greater than the left side. There is a grade 1 retrolisthesis L1 to and likely L2-3 and L3-4 levels. Conus medullaris and at pedicle of T12. T12-L1: No disc herniation. No neuroforamina stenosis. L2-1-2: No disc herniation. No neuroforamina stenosis. L2-3: Broad-based disc bulging. Facet joint hypertrophy. Reduced AP diameter of the thecal sac and neuroforamina. L3-4: Broad-based disc bulging. Facet joint hypertrophy. Reduced AP diameter of the thecal sac and the neural foramina. L4-5: Postsurgical changes. L5-S1: Postsurgical changes. IMPRESSION: Acute to subacute fracture, alar of the sacrum bilaterally. 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 Status post posterior fusion L4 S1 and intervertebral disc spacer placement/arthrodesis L4-5 and L5-S1. Grade 1 retrolisthesis L1-L2 3 and L3-4. Assessment & Plan Assessment & Plan (1) Bilateral sacral insufficiency fracture: Code(s): M84.48XA - Pathological fracture, other site, initial encounter for fracture Category: Medical Qualifiers: Encounter type: initial encounter Qualified Code(s): M84.48XA - Pathological fracture, other site, initial encounter for fracture Plan status post L4-S1 lumbar fusion without any improvement. The pain got worse after the procedure. Complains on pain in the projection of bilateral sacral ala. She also has numbness in her feet. On the MRI bilateral subacute/acute alar insufficiency fractures, right more than left, which explains the pain in the sacral area radiating to both sides, right more than left. This patient is definitely suffering from osteoporosis that is responsible for the development of these fractures. I will schedule this patient for sacroplasty and perform it as soon as possible. Patient Instructions: I here by testify that I spent 45 minutes in conversation with this patient as well as evaluating her prior records, evaluating prior diagnostic images planning her care and organizing this note. Coding Level of Care Code New Pt Level 4 (15120) Diagnoses Bilateral sacral insufficiency fracture, initial encounter M84.48XA Encounter type: initial encounter
[2025-01-19 14:05] VITALS: BP 153/65; PULSE 87; RESP 16; O2SAT 95; BMI 24.7
--- OUTSIDE RECORDS SUMMARY | 2025-01-19 16:16 | XMS_ITS | Clinical Summary ---
Author Organization [facility] Address [address] [place] [address] Phone Care Team Providers Care Diabetes Education Coordinator Name Role Phone Diana Guzman NP Primary Care Provider [phone] Allergies Active Allergy Reactions Criticality Noted Date [...] complete this topic Insurance [employer] Care Teams Diabetes Education Coordinator Relationship Specialty Start Date End Date Diana Guzman NP [address] [place] [address] PCP - General 08/20/23
--- OUTSIDE RECORDS SUMMARY | 2025-01-19 16:16 | XMS_ITS | Continuity of Care Document ---
Author Organization [facility] Primary [facility] Address [address] [place] [address]- Care Team Providers Care Retail Beauty Specialist Name Role Phone Megan KHOURY, Diana Allen Primary Care Physician Encounter [facility] Date(s): 12/17/24 - 01/16/25 [facility] [place] [address] [place], [place] [address] Encounter Type: Triage Allergies, Adverse [...] Recorded pneumococcal 20-valent conjugate vaccine 08/12/23 Recorded [id number] bivalent booster vax 10/14/22 Recorded SARS-CoV-2 (COVID-19) mRNA-1273 vaccine 10/22/21 R ecorded SARS-CoV-2 (COVID-19) mRNA-1273 vaccine 02/28/21 R ecorded SARS-CoV-2 (COVID-19) mRNA-1273 vaccine 01/31/21 R ecorded zoster vaccine, inactivated 3 12/27/20 Recorded zoster vaccine, inactivated 06/21/20 Recorded Influenza Virus Vaccine (oldterm) 07/23/20 Recorde d tetanus/diphtheria/pertussis, acel(Tdap) 05/17/14 Recorded 1Result Comment: [facility]# [id number] 2Result Comment: given at [facility] 3Result Comment: [facility] Medications busPIRone 15 mg oral tablet 1 tablet, By Mouth, 3 times a day, # 270 tablet, 1 Refills, Maintenance, 01/13/25 4:32:00 PM EDT, [id number], 163, cm, 12/21/24 13:52:00 EST, Height, 62.1, kg, 12/21/24 13:44:00 EST, Dry Weight Start Date: 01/13/25 Status: Ordered Quantity: 270.0 Unit: tablet Repeat number: 1 Compression Stockings See Instructions, # 3 pair, [...] 2:17:00 PM EST, Route to Pharmacy Electronically, [facility]/pharmacy#[id number], 163, cm, 12/21/24 13:52:00 EST, Height, 62.1, [...] DAILY NEEDED, # 15 sprays, 4 Refills, [id number], 30, INHALE 2 PUFFS INTO EACH NOSTRIL TWICE DAILY NEEDED, 165.1, cm, 10/16/20 15:14:00 EST, Height Start Date: 10/19/20 Status: Ordered Quantity: 15.0 Unit: sprays Repeat number: 1 Lyrica 150 mg oral capsule 1 capsule = 150 mg, By Mouth, 2 times a day, # 180 capsule, 0 Refills, Maintenance, 12/27/24 8:49:00AM EST, [facility]/pharmacy #[id number], [facility] last filled 04/28/24 for 30 days qty 60, 163, cm, 12/21/24 13:52:00 EST, Height, 62.1, kg, 12/21/24 13:44:00 EST, Dry Weight Start Date: 12/27/24 Stop Date: 03/27/25 Status: Ordered Quantity: 180.0 Unit: capsule Repeat number: 1 Pulmicort Flexhaler 180 mcg 1 puffs, Inhalation, 2 times a day, # 1 each, 1 Refills, Maintenance, 11/05/24 6:07:00 PM EST, [facility]/pharmacy #[id number], Partial fill upon patient request if [...] Refills, Maintenance, 07/22/24 2:50:00 PM EDT, Tablet, [facility]/pharmacy #[id number], Partial fill upon patient request if [...] # 224 tablet, 0 Refills, Soft Stop, 01/12/25 9:25:00 AM EDT, [facility]/pharmacy #[id number], filled and sold on 12-13-24 for a 28 daysupply (#224), 163, cm, 12/21/24 13:52:00 EST, Height, 62.1, kg, 12/21/24 13:44:00 EST, Dry Weight Start Date: 01/12/25 Stop Date: 02/09/25 Status: Ordered Quantity: 224.0 Unit: tablet Repeat number: 1 traZODone 100 mg oral tablet 2, tablet, By Mouth, Daily at bedtime, # 180 tablet, Refills 1, Maintenance, 01/13/25 4:31:00 PM EDT, Route to Pharmacy Electronically, [id number], 163, cm, 12/21/24 13:52:00 EST, Height, 62.1, kg, 12/21/24 13:44:00 EST, Dry Weight Start Date: 01/13/25 Status: Ordered Quantity: 180.0 Unit: tablet Repeat number: 1 Vitamin B12 1000 mcg oral tablet 1 [...] PCO Associate Professional Member Role: PCP Address: [address] [place] [address] [place] [address]- Telecom: Care Team Related Persons Name: CAILIN RAMIREZ Insurance Providers Guarantor name: NIYA [facility] Plan Information #: 1 Payer: [employer] NON HMO PLANS Member Number: NA Policy Number: NA Group Number: NA
== END 2025-01-19 14:36 | disposition home or self-care (01) ==
LOC: HO.PMC 13:53
PROVIDERS: PCP Nurse Practitioner Adult Health; Visit Provider Anesthesiology
DX: M84.48XA Pathological fracture, other site, initial encounter for fracture (principal)
CPT/HCPCS: 99204

== ENCOUNTER → 2025-01-19 13:52 | Outpatient (BNVA) | payer OTHER, SELFPAY | PROVIDERS: PCP Nurse Practitioner Adult Health; Visit Provider Anesthesiology ==

== ENCOUNTER 2025-02-07 13:36 | Outpatient (AMB) | payer OTHER, SELFPAY ==
--- NOTE | 2025-02-07 13:39 | A.OFFVIS_ITS ---
Vital Signs 02/07/25 13:43 Height 5 ft 4 in Weight 135 lb BMI 23.2 BP 147/70 H Blood Pressure Location Rt brachial Position Sitting Pulse 76 Pulse Source Pulse Oximeter Pulse Oximetry (%) 97 Oxygen Delivery Method Room Air Intake Visit Reasons: Procedure Discussion: Sacroplasty DENIED Intake Note: Pain today 03/12 Cigarette Tipper Required: No Accompanied by: Self / Same As Patient Allergies Penicillins Adverse Reaction (Unknown, Verified 02/07/25 13:43) Patient doesn't recall being allergic HPI Comments Details: Ashley is back in my office after her insurance company denied sacroplasty seizure. They consider sacroplasty investigational and experimental procedure. This procedure is few decades in business helping people with fractured sacral bone and yet insurance company thinks it is investigational. We will try to appeal the insurance company's decision involving [employer] which provides supplies for sacroplasty. We had very prolonged and detailed discussion. I explained to Ashley possible other treatments of her pain which would be considered palliative care procedures. Those would include spinal cord stimulator procedures or intrathecal drug delivery system pain pump application. The patient expressed understanding. We decided today that if appeal will be successful we will give her call invite her for sacroplasty. If not we will invite her for the appointment to discuss neuromodulation procedures. Also attention was attracted today that patient complains on difficulty walking numbness and tingling sensation in bilateral feet. I examined today her lower extremities see examination as below. Unlikely the cause of this numbness and tingling related to vascular changes. Electromyography could be performed to support or reject presence of radiculopathy in this patient. According to the patient she has severe osteoporosis. She developed stress fracture of sacral bone.. She was referred to this office by Dr. Antunez. She had L4-S1 bilateral spinal fusion performed. She had stress fracture of the sacral bones demonstrated on the MRI after the procedure. She reports her pain is being very severe. She can not sleep normally can not do activities of daily living she can not take care of herself but she can not function normally. She is on sick leave. Weather changes in movements aggravate her pain. Topical medications as well as tramadol make her pain slightly better. [facility] Medical History Anemia Wheezing Seasonal allergies Mild tricuspid valve regurgitation Memory problem Anxiety Palpitations Low vitamin D level Lichen sclerosus Heberden's nodes of both hands Insomnia DJD (degenerative joint disease) of cervical spine DDD (degenerative disc disease), lumbar Chronic narcotic use Depression COVID-19 Elevated cholesterol Murmur Back pain Neck pain Osteopenia Osteoporosis Arthritis HTN (hypertension) Surgical History H/O cardiac catheterization H/O colonoscopy Social History Household Members: Spouse Housing: House Are you a primary special needs child caregiver to a significant other at home: No Do you presently have visiting nurse or other home services: No Patient Tobacco Use Status: Never used Tobacco service: No Review of Systems Const All systems reviewed & are unremarkable except as noted in HPI and below ENT Reports Normal hearing present Neuro Reports Normal hearing present, Denies Abnormal speech present, Denies confusion and Denies Sensory deficit (Neuro) Psych Denies confusion Physical Exam Vital Signs: Last Vital Signs Pulse 76 02/07/25 13:43 BP 147/70 H 02/07/25 13:43 Pulse Ox 97 02/07/25 13:43 Oxygen Delivery Method Room Air 02/07/25 13:43 BMI result Body Mass Index 23.2 Const General: no acute distress; No confusion Orientation/consciousness: patient oriented x3 and No confusion Eyes General: appearance normal, both eyes and all related structures Pupils: Equal, round and reactive pupils present EOM: EOMs intact bilaterally Neck Neck: Yes full ROM Chest Chest palpation & inspection: normal inspection of the chest Resp Effort & Inspection: normal respiratory effort, able to speak in complete sentences, normal respiratory pattern, no audible wheezes and no cough Cardio Jugular venous distension: no JVD GI Inspection: Yes normal to inspection Back/Spine/Pelvis Other: Very well-healed scar on the projection of paraspinal intervals L4-S1. Severe tenderness on palpation in projection of the bilateral sacral ala. Neuro General: patient oriented x3, gait normal and No confusion Cranial nerves: Yes CN's II-XII intact bilaterally, Yes Equal, round and reactive pupils present, Yes Normal hearing present and Yes Ability to bilaterally elevate shoulders present Speech: No Abnormal speech present Gait exam (Neuro): Normal gait present Motor exam (neuro): 5/5 motor strength present throughout Sensory Exam: No Sensory deficit (Neuro) Extrem Other: Very weak bilateral dorsalis pedis however very strong bilateral posterior tibial pulses detected. Feet are warm on palpation, unlikely vascular deficiency. General: Yes normal to inspection, Yes capillary refill normal and No normal gait Psych Speech and movement: Normal speech and movement present Affect: normal affect Attitude: cooperative Thought process: Normal thought process present Thought content: Normal thought content present Insight: Good insight present (Psych) Judgement: Good judgement present (Psych) Results Reviewed Results Reviewed: MRI of the lumbar spine was obtained using routine sequences without contrast. FINDINGS: Paramagnetic field distortion secondary to metallic hardware for a posterior L4 S1 fusion and intervertebral disc spacers L4-5 and L5-S1. Limited by patient's breathing motion artifact. Last rib-bearing vertebra labeled T12. There is clumping of the neural elements of the thecal sac/filum terminalis from L2 to L4. Grade 1 anterolisthesis L4-5. There is signal abnormality with irregular abnormality involving the alar of the sacrum bilaterally, right greater than the left side. There is a grade 1 retrolisthesis L1 to and likely L2-3 and L3-4 levels. Conus medullaris and at pedicle of T12. T12-L1: No disc herniation. No neuroforamina stenosis. L2-1-2: No disc herniation. No neuroforamina stenosis. L2-3: Broad-based disc bulging. Facet joint hypertrophy. Reduced AP diameter of the thecal sac and neuroforamina. L3-4: Broad-based disc bulging. Facet joint hypertrophy. Reduced AP diameter of the thecal sac and the neural foramina. L4-5: Postsurgical changes. L5-S1: Postsurgical changes. IMPRESSION: Acute to subacute fracture, alar of the sacrum bilaterally. 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 Status post posterior fusion L4 S1 and intervertebral disc spacer placement/arthrodesis L4-5 and L5-S1. Grade 1 retrolisthesis L1-L2 3 and L3-4. Assessment & Plan Assessment & Plan (1) Bilateral sacral insufficiency fracture: Code(s): M84.48XA - Pathological fracture, other site, initial encounter for fracture Category: Medical Qualifiers: Encounter type: initial encounter Qualified Code(s): M84.48XA - Pathological fracture, other site, initial encounter for fracture Plan status post L4-S1 lumbar fusion without any improvement. The pain got worse aft er the procedure. Complains on pain in the projection of bilateral sacral ala. She also has numbness in her feet. On the MRI bilateral subacute/acute alar insufficiency fractures, right more than left, which explains the pain in the sacral area radiating to both sides, right more than left. This patient is definitely suffering from osteoporosis that is responsible for the development of these fractures. Sacroplasty was denied by insurance company as investigational and experimental procedure. We will try to involve [employer] to help us to overcome this decision. In the future treatment of her pain could involve neuromodulation. Briefly spinal cord stimulator and intrathecal pain pump were explained to the patient. If the insurance company will approve the procedure we will give the patient a call to schedule an appointment. Otherwise she will call us in 7 days and schedule appointment with us.. Patient Instructions: I here by testify that I spent 35 minutes in conversation with this patient as well as planning her care and organizing this note. Coding Level of Care Code Est Pt Level 4 (65383) Diagnoses Bilateral sacral insufficiency fracture, initial encounter M84.48XA Encounter type: initial encounter
[2025-02-07 13:43] VITALS: BP 147/70; PULSE 76; O2SAT 97; BMI 23.2
--- OUTSIDE RECORDS SUMMARY | 2025-02-07 16:10 | XMS_ITS | Clinical Summary ---
Author Organization [facility] Address [address] [place] [address] Phone Care Team Providers Care Felt Cutter Name Role Phone Diana Guzman NP Primary Care Provider [phone] Allergies Active Allergy Reactions Criticality Noted Date [...] of 1 - PCV) 2021 Influenza Vaccine (Season Ended) 2025 07/23/20 Hepatitis B Vaccine Aged Out No longe r eligible based on patient's age to complete this topic Insurance [employer] Care Teams Felt Cutter Relationship Specialty Start Date End Date Diana Guzman NP [address] [place] [address] PCP - General 08/20/23
--- OUTSIDE RECORDS SUMMARY | 2025-02-07 16:11 | XMS_ITS | Continuity of Care Document ---
Author Organization [facility] Primary [facility] [place] Address [address] [place] [address]- Care Team Providers Care Parts Counterman Name Role Phone Megan KHOURY, Diana Allen Primary Care Physician Encounter [facility] Date(s): 01/07/25 - 02/06/[address] [id number] Encounter Type: Triage Allergies, Adverse Reactions, [...] Recorded pneumococcal 20-valent conjugate vaccine 08/12/23 Recorded [id number] bivalent booster vax 10/14/22 Recorded SARS-CoV-2 (COVID-19) mRNA-1273 vaccine 10/22/21 R ecorded SARS-CoV-2 (COVID-19) mRNA-1273 vaccine 02/28/21 R ecorded SARS-CoV-2 (COVID-19) mRNA-1273 vaccine 01/31/21 R ecorded zoster vaccine, inactivated 3 12/27/20 Recorded zoster vaccine, inactivated 06/21/20 Recorded Influenza Virus Vaccine (oldterm) 07/23/20 Recorde d tetanus/diphtheria/pertussis, acel(Tdap) 05/17/14 Recorded 1Result Comment: [facility]# 19713-726-20 2Result Comment: given at [facility] 3Result Comment: [facility] Medications busPIRone 15 mg oral tablet 1 tablet, By Mouth, 3 times a day, # 270 tablet, 1 Refills, Maintenance, 01/13/25 4:32:00 PM EDT, [facility], 163, cm, 12/21/24 13:52:00 EST, Height, 62.1, kg, 12/21/24 13:44:00 EST, Dry Weight Start Date: 01/13/25 Status: Ordered Quantity: 270.0 Unit: tablet Repeat number: 1 clobetasol 0.025% topical cream Topically, 2 times a day, 0 Refills, Maintenance, 02/03/25 9:12:00 AM EDT, Partial fill upon patient request if the prescription is for a schedule II opioid drug. Start Date: 02/03/25 Status: Ordered Repeat number: 1 Compression Stockings See Instructions, # 3 pair, Maintenance, DX: CVI surgical, calf length 20-30 mm Hg, 06/08/19 8:47:56 AM EDT, Compound Start Date: 06/08/19 Status: Ordered Quantity: 3.0 Unit: pair Repeat number: 1 cyclobenzaprine 10 mg oral tablet 1, tablet, By Mouth, Daily at bedtime, PRN, OV 02-04-25, # 30 tablet, Refills 0, Tot. Refills 0, Maintenance, NEEDED FOR SPASM, 01/28/25 1:30:00 PM EDT, Route to Pharmacy Electronically, [facility]/pharm[facility]#[id number], 163, cm, 12/21/24 13:52:00 EST, Height, 62.1, kg, 12/21/24 13:44:00 EST, Dry Weight Start Date: 01/28/25 Status: Ordered Quantity: 30.0 Unit: tablet Repeat number: 1 estradiol 1 mg/1 g (0.1%) transdermal gel See Instructions, 1 each Topically 3 times per week, 0 Refills, Maintenance, 06/28/20 8:05:00 AM EDT Start Date: 06/28/20 Status: Ordered Repeat number: 1 ipratropium nasal 42 mcg/inh spray See Instructions, INHALE 2 PUFFS INTO EACH NOSTRIL TWICE DAILY NEEDED, # 15 sprays, 4 Refills, [id number], 30, INHALE 2 PUFFS INTO EACH NOSTRIL TWICE DAILY NEEDED, 165.1, cm, 10/16/20 15:14:00 EST, Height Start Date: 10/19/20 Status: Ordered Quantity: 15.0 Unit: sprays Repeat number: 1 Lyrica 150 mg oral capsule 1 capsule = 150 mg, By Mouth, 2 times a day, # 180 capsule, 0 Refills, Maintenance, 12/27/24 8:49:00AM EST, [facility]/pharmacy #[id number], [facility] last filled 04/28/24 for 30 days qty 60, 163, cm, 12/21/24 13:52:00 EST, Height, 62.1, kg, 12/21/24 13:44:00 EST, Dry Weight Start Date: 12/27/24 Stop Date: 03/27/25 Status: Ordered Quantity: 180.0 Unit: capsule Repeat number: 1 Pulmicort Flexhaler 180 mcg 1 puffs, Inhalation, 2 times a day, # 1 each, 1 Refills, Maintenance, 11/05/24 6:07:00 PM EST, [facility] #[id number], Partial fill upon patient request if [...] Refills, Maintenance, 07/22/24 2:50:00 PM EDT, Tablet, [facility]/pharm[facility] #1157, Partial fill upon patient request if [...] # 224 tablet, 0 Refills, Soft Stop, 02/04/25 12:10:00 PM EDT, [facility]/pharm[facility] #[id number], filled and sold on 12-13-24 for a 28 daysupply (#224), 163, cm, 02/04/25 11:25:00 EDT, Height, 62.1, kg, 12/21/24 13:44:00 EST, Dry Weight Start Date: 02/04/25 Stop Date: 03/04/25 Status: Ordered Quantity: 224.0 Unit: tablet Repeat number: 1 traZODone 100 mg oral tablet 2, tablet, By Mouth, Daily at bedtime, # 180 tablet, Refills 1, Maintenance, 01/13/25 4:31:00 PM EDT, Route to Pharmacy Electronically, [id number], 163, cm, 12/21/24 13:52:00 EST, Height, 62.1, kg, 12/21/24 13:44:00 EST, Dry Weight Start Date: 01/13/25 Status: Ordered Quantity: 180.0 Unit: tablet Repeat number: 1 vibegron 75 mg oral tablet 1 tablet = 75 mg, By Mouth, Daily, # 30 tablet, 11 Refills, Maintenance, 02/03/25 9:42:00 AM EDT, Tablet, [facility]/pharm[facility] #[id number], Partial fill upon patient request if the prescription is for a schedule II opioid drug., 163, cm, 02/03/25 9:03:00 EDT, Height, 62.1, kg, 12/21/24 13:44:00 EST, Dry Weight Start Date: 02/03/25 Status: Ordered Quantity: 30.0 Unit: tablet Repeat number: 12 Vitamin B12 1000 mcg oral tablet 1 tablet = 1,000 mcg, By Mouth, Daily, 0 Refills, Maintenance, 05/14/23 5:45:00 PM EDT, Partial fillupon patient request if the prescription is for a schedule II opioid drug. Start Date: 05/14/23 Status: Ordered Repeat number: 1 Vitamin D3 Vitamin D3, 0 Refills, Maintenance, 02/03/25 9:12:00 AM EDT Start Date: 02/03/25 Status: Ordered Repeat number: 1 Problem List [...] Personnel Name: Megan KHOURY, Diana Allen Position: [facility] PCO Associate Professional Member Role: PCP Address: [address] [place] [address] [address] Telecom: Care Team Related Persons Name: CAILIN RAMIREZ Insurance Providers Guarantor name: NIYA RAMIREZ Health Plan Information #: 1 Payer: [employer] NON HMO PLANS Member Number: NA Policy Number: NA Group Number: NA
== END 2025-02-07 14:13 | disposition home or self-care (01) ==
LOC: HO.PMC 13:37
PROVIDERS: PCP Nurse Practitioner Adult Health; Visit Provider Anesthesiology
DX: M84.48XA Pathological fracture, other site, initial encounter for fracture (principal)
CPT/HCPCS: 99214

== ENCOUNTER → 2025-02-07 13:36 | Outpatient (BNVA) | payer OTHER, SELFPAY | PROVIDERS: PCP Nurse Practitioner Adult Health; Visit Provider Anesthesiology ==

== ENCOUNTER 2025-04-20 10:45 | Outpatient (AMB) | payer OTHER, MEDICARE, SELFPAY ==
--- NOTE | 2025-04-20 10:58 | A.OFFVIS_ITS ---
Vital Signs 04/20/25 11:01 Height 5 ft 4 in Weight 136 lb BMI 23.3 BP 155/72 H Blood Pressure Location Lt brachial Position Sitting Respiration 18 Pulse 80 Pulse Source Pulse Oximeter Oxygen Delivery Method Room Air Intake Visit Reasons: Fu patient request/GA sacroplasty discussion Wave Solder Offbearer Required: No Allergies Penicillins Adverse Reaction (Unknown, Verified 04/20/25 10:58) Patient doesn't recall being allergic HPI Comments Details: Ashley is back in my office with continuous complain of lower back pain. She reports her pain today 6 to 05/12. 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 She had sacral insufficiency fracture and was referred for sacroplasty to me. Unfortunately her insurance at that time denied the procedure. Her new insurance will be active in May however it is too late to perform sacroplasty. She was referred here by Neurosurgery Dr. Escalera for evaluation for sacroplasty after the procedure were due to osteoporosis the hardware became unstable. Today attention was attracted to the positive signs of sacroiliitis more on the right and less on the left. See the physical exam as below. I offered this patient to have diagnostic bilateral sacroiliac joint injection. I will perform the injection and then I will assess the level of pain of this patient. According to the patient she has severe osteoporosis. She developed stress fracture of sacral bone.. She was referred to this office by Dr. Escalera. She had L4-S1 bilateral spinal fusion performed. She had stress fracture of the sacral bones demonstrated on the MRI after the procedure. She reports her pain is being very severe. [facility] Medical History Anemia Wheezing Seasonal allergies Mild tricuspid valve regurgitation Memory problem Anxiety Palpitations Low vitamin D level Lichen sclerosus Heberden's nodes of both hands Insomnia DJD (degenerative joint disease) of cervical spine DDD (degenerative disc disease), lumbar Chronic narcotic use Depression COVID-19 Elevated cholesterol Murmur Back pain Neck pain Osteopenia Osteoporosis Arthritis HTN (hypertension) Surgical History H/O cardiac catheterization H/O colonoscopy Social History Household Members: Spouse Housing: House Are you a primary respiratory care program director to a significant other at home: No Do you presently have visiting nurse or other home services: No Patient Tobacco Use Status: Never used Tobacco service: No Review of Systems Const All systems reviewed & are unremarkable except as noted in HPI and below ENT Reports Normal hearing present Neuro Reports Normal hearing present, Denies Abnormal speech present, Denies confusion and Denies Sensory deficit (Neuro) Psych Denies confusion Physical Exam Vital Signs: Last Vital Signs Pulse 80 04/20/25 11:01 Resp 18 04/20/25 11:01 BP 155/72 H 04/20/25 11:01 Oxygen Delivery Method Room Air 04/20/25 11:01 BMI result Body Mass Index 23.3 Const General: no acute distress; No confusion Orientation/consciousness: patient oriented x3 and No confusion Eyes General: appearance normal, both eyes and all related structures Pupils: Equal, round and reactive pupils present EOM: EOMs intact bilaterally Neck Neck: Yes full ROM Chest Chest palpation & inspection: normal inspection of the chest Resp Effort & Inspection: normal respiratory effort, able to speak in complete sentences, normal respiratory pattern, no audible wheezes and no cough Cardio Jugular venous distension: no JVD GI Inspection: Yes normal to inspection Back/Spine/Pelvis Other: Very well-healed scar on the projection of paraspinal intervals L4-S1. Severe tenderness on palpation in projection of the bilateral sacroiliac joints. Felix test is positive on the right and equivocal on the left. Pelvic compression test is positive bilaterally. Pelvic distraction test is positive bilaterally. Stinchfield test is positive bilaterally. The patient denies Valsalva maneuver aggravate her pain. She denies pain radiating all the way down into bilateral lower extremities. Neuro General: patient oriented x3, gait normal and No confusion Cranial nerves: Yes CN's II-XII intact bilaterally, Yes Equal, round and reactive pupils present, Yes Normal hearing present and Yes Ability to bilaterally elevate shoulders present Speech: No Abnormal speech present Gait exam (Neuro): Normal gait present Motor exam (neuro): 5/5 motor strength present throughout Sensory Exam: No Sensory deficit (Neuro) Extrem Other: Very weak bilateral dorsalis pedis however very strong bilateral posterior tibial pulses detected. Feet are warm on palpation, unlikely vascular deficiency. General: Yes normal to inspection, Yes capillary refill normal and No normal gait Psych Speech and movement: Normal speech and movement present Affect: normal affect Attitude: cooperative Thought process: Normal thought process present Thought content: Normal thought content present Insight: Good insight present (Psych) Judgement: Good judgement present (Psych) Results Reviewed Results Reviewed: MRI of the lumbar spine was obtained using routine sequences without contrast. FINDINGS: Paramagnetic field distortion secondary to metallic hardware for a posterior L4 S1 fusion and intervertebral disc spacers L4-5 and L5-S1. Limited by patient's breathing motion artifact. Last rib-bearing vertebra labeled T12. There is clumping of the neural elements of the thecal sac/filum terminalis from L2 to L4. Grade 1 anterolisthesis L4-5. There is signal abnormality with irregular abnormality involving the alar of the sacrum bilaterally, right greater than the left side. There is a grade 1 retrolisthesis L1 to and likely L2-3 and L3-4 levels. Conus medullaris and at pedicle of T12. T12-L1: No disc herniation. No neuroforamina stenosis. L2-1-2: No disc herniation. No neuroforamina stenosis. L2-3: Broad-based disc bulging. Facet joint hypertrophy. Reduced AP diameter of the thecal sac and neuroforamina. L3-4: Broad-based disc bulging. Facet joint hypertrophy. Reduced AP diameter of the thecal sac and the neural foramina. L4-5: Postsurgical changes. L5-S1: Postsurgical changes. IMPRESSION: Acute to subacute fracture, alar of the sacrum bilaterally. 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 Status post posterior fusion L4 S1 and intervertebral disc spacer placement/arthrodesis L4-5 and L5-S1. Grade 1 retrolisthesis L1-L2 3 and L3-4. Assessment & Plan Assessment & Plan (1) Bilateral sacral insufficiency fracture: Code(s): M84.48XA - Pathological fracture, other site, initial encounter for fracture Category: Medical Qualifiers: Encounter type: initial encounter Qualified Code(s): M84.48XA - Pathological fracture, other site, initial encounter for fracture (2) Sacroiliitis: Code(s): M46.1 - Sacroiliitis, not elsewhere classified Category: Medical (3) Pain of both sacroiliac joints: Code(s): M53.3 - Sacrococcygeal disorders, not elsewhere classified Category: Medical Plan status post L4-S1 lumbar fusion without any improvement. The pain got worse after the procedure. Complains on pain in the projection of bilateral sacral area. Was diagnose with sacral insufficiency however insurance company denied the sacroplasty procedure. Now she is in my office her insurance will be changed from May 03 however it is too late to perform sacroplasty at this time. Attention was attracted today that patient is complaining on pain in the projection of bilateral sacroiliac joints. I offered the patient to perform bilateral diagnostic sacroiliac joint injection. Patient agreed to go for this procedure. I will see this patient after the procedure will be performed. Coding Level of Care Code Est Pt Level 3 (15738) Diagnoses Bilateral sacral insufficiency fracture, initial encounter M84.48XA Encounter type: initial encounter Sacroiliitis M46.1 Pain of both sacroiliac joints M53.3
[2025-04-20 11:01] VITALS: BP 155/72; PULSE 80; RESP 18; BMI 23.3
== END 2025-04-20 11:16 | disposition home or self-care (01) ==
LOC: HO.PMC 10:52
PROVIDERS: PCP Nurse Practitioner Adult Health; Visit Provider Anesthesiology
DX: M84.48XA Pathological fracture, other site, initial encounter for fracture (principal); M46.1 Sacroiliitis, not elsewhere classified; M53.3 Sacrococcygeal disorders, not elsewhere classified
CPT/HCPCS: 99214

== ENCOUNTER → 2025-04-20 10:45 | Outpatient (BNVA) | payer OTHER, MEDICARE, SELFPAY | PROVIDERS: PCP Nurse Practitioner Adult Health; Visit Provider Anesthesiology ==

== ENCOUNTER 2025-06-21 07:33 | Outpatient (REF) | payer MEDICARE, SELFPAY ==
--- OUTSIDE RECORDS SUMMARY | 2025-06-17 23:59 | XMS_ITS | Continuity of Care Document ---
Author Organization [facility] Primary [facility] [place] Address [address] [place] [address]- Care Team Providers Care Manager Audio Name Role Phone Megan KHOURY, Diana Allen Primary Care Physician Encounter [facility] Date(s): 05/18/25 - 06/17/25 [facility] [address] [place], [place] [address] Encounter Type: Triage Allergies, Adverse Reactions, Alerts Substance Criticality Severity Reaction Reaction Severity Status hydrOXYzine LAW - Headache Acti ve Other Environmental Allergy 1 sneezing, itchy eyes Active 1seasonal allergies Immunizations Given and Recorded Vaccine Date Status Refusal Reason tetanus/diphtheria/pertussis, acel(Tdap) 04/08/25 Recorded tetanus/diphtheria/pertussis, acel(Tdap) 05/17/14 Recorded influenza virus vaccine, inactivated 08/19/24 Give n [...] Recorded pneumococcal 20-valent conjugate vaccine 08/12/23 Recorded [id number] bivalent booster vax 10/14/22 Recorded SARS-CoV-2 (COVID-19) mRNA-1273 vaccine 10/22/21 R ecorded SARS-CoV-2 (COVID-19) mRNA-1273 vaccine 02/28/21 R ecorded SARS-CoV-2 (COVID-19) mRNA-1273 vaccine 01/31/21 R ecorded zoster vaccine, inactivated 3 12/27/20 Recorded zoster vaccine, inactivated 06/21/20 Recorded Influenza Virus Vaccine (oldterm) 07/23/20 Recorde d 1Result Comment: [facility]# 46764-552-08 2Result Comment: given at [facility] 3Result Comment: [facility] Medications busPIRone 15 mg oral tablet 1 tablet, By Mouth, 3 times a day, # 270 tablet, 1 Refills, Maintenance, 01/13/25 4:32:00 PM EDT, [id number], 163, cm, 12/21/24 13:52:00 EST, Height, 62.1, [...] Date: 02/03/25 Status: Ordered Repeat number: 1 clobetasol 0.05% topical ointment See Instructions, apply a thin film Topically 2 times a week, # 45 Gm, 2 Refills, Maintenance, 03/09/25 11:23:00 AM EDT, Ointment, [facility]/pharmacy #[id number], Partial fill upon patient request if the prescription is for a schedule II opioid drug., apply a thin film Topically 2 times a week, 163, cm, 03/09/25 10:58:00 EDT, Height, 60.7, kg, 03/09/25 10:58:00 EDT, Dry Weight Start Date: 03/09/25 Status: Ordered Quantity: 45.0 Unit: g Repeat number: 3 Compression Stockings See Instructions, # 3 pair, Maintenance, DX: CVI surgical, calf length 20-30 mm Hg, 06/08/19 8:47:56 AM EDT, Compound Start Date: 06/08/19 Status: Ordered Quantity: 3.0 Unit: pair Repeat number: 1 cyclobenzaprine 10 mg oral tablet 1, tablet, By Mouth, Daily at bedtime, PRN, SPASM., # 30 tablet, Refills 0, Maintenance, NEEDED,04/05/25 1:55:00 PM EDT, Route to Pharmacy Electronically, [id number], 163, cm, 03/16/25 17:10:00 EDT, Height, 60.7, kg, 03/09/25 10:58:00 EDT, Dry Weight Start Date: 04/05/25 Status: Ordered Quantity: 30.0 Unit: tablet Repeat number: 1 Estrace Vaginal Cream 0.1 mg/g See Instructions, Insert 1.0 g intravaginally at night two times per week, # 42.5 Gm, 2 Refills, Maintenance, 03/09/25 11:23:00 AM EDT, [facility]/pharmacy #1157, Partial fill upon patient request if the prescription is for a schedule II opioid drug., 163, cm, 03/09/25 10:58:00 EDT, Height, 60.7, kg, 03/09/25 10:58:00 EDT, Dry Weight Start Date: 03/09/25 Status: Ordered Quantity: 42.5 Unit: g Repeat number: 3 ipratropium nasal 42 mcg/inh spray See Instructions, INHALE 2 PUFFS INTO EACH NOSTRIL TWICE DAILY NEEDED, # 15 sprays, 4 Refills, [facility], 30, INHALE 2 PUFFS INTO EACH NOSTRIL TWICE DAILY NEEDED, 165.1, cm, 10/16/20 15:14:00 EST, Height Start Date: 10/19/20 Status: Ordered Quantity: 15.0 Unit: sprays Repeat number: 1 Lyrica 150 mg oral capsule 1 capsule = 150 mg, By Mouth, 2 times a day, # 180 capsule, 0 Refills, Maintenance, 03/31/25 9:47:00PM EDT, [facility]/pharmacy #1157, [facility] last filled 04/28/24 for 30 days qty 60, 163, cm, 03/16/25 17:10:00 EDT, Height, 60.7, kg, 03/09/25 10:58:00 EDT, Dry Weight Start Date: 03/31/25 Stop Date: 06/29/25 Status: Ordered Quantity: 180.0 Unit: capsule Repeat number: 1 memantine 21 mg oral capsule, extended release 1 capsule = 21 mg, By Mouth, Daily, # 90 capsule, 0 Refills, Maintenance, 06/03/25 7:59:00 AM EDT, [facility], [facility], Partial fill upon patient request if the prescription is fora schedule II opioid drug., 163, cm, 05/10/25 12:43:00 EDT, Height, 60.7, kg, 03/09/25 10:58:00 EDT, Dry Weight Start Date: 06/03/25 Status: Ordered Quantity: 90.0 Unit: capsule Repeat number: 1 omeprazole 20 mg oral enteric coated capsule 1 capsule = 20 mg, By Mouth, 2 times a day, # 180 capsule, 3 Refills, Maintenance, 04/27/25 9:23:00 AM EDT, EC Capsule, [facility]/pharmacy #1157, Partial fill upon patient request if the prescription is fora schedule II opioid drug., 163, cm, 04/27/25 9:05:00 EDT, Height, 60.7, kg, 03/09/25 10:58:00 EDT,Dry Weight Start Date: 04/27/25 Status: Ordered Quantity: 180.0 Unit: capsule Repeat number: 4 Indications: Anemia, unspecified; Epigastric pain; Pulmicort Flexhaler 180 mcg 1 puffs, Inhalation, 2 times a day, # 1 each, 1 Refills, Maintenance, 11/05/24 6:07:00 PM EST, [facility]/pharmacy #1157, Partial fill upon patient request if the prescription is for a schedule II opioid drug., 1 puffs Inhalation 2 times a day,x30 days, 163, cm, 11/05/24 17:58:00 EST, Height, 54, kg, 02/07/23 16:21:00 EDT, Dry Weight Start Date: 11/05/24 Stop Date: 01/04/25 Status: Ordered Quantity: 1.0 Unit: each Repeat number: 2 Indications: Acute bronchitis, unspecified; sertraline 25 mg oral tablet 1 tablet, By Mouth, Daily, # 90 tablet, 1 Refills, Maintenance, 03/28/25 11:15:00 AM EDT, [facility]/pharmacy #1157, 163, cm, 03/16/25 17:10:00 EDT, Height, 60.7, kg, 03/09/25 10:58:00 EDT, Dry Weight Start Date: 03/28/25 Status: Ordered Quantity: 90.0 Unit: tablet Repeat number: 2 traMADol 50 mg oral tablet 2 tablet = 100 mg, By Mouth, Every 6 hours, PRN Pain , Severe, # 224 tablet, 0 Refills, Soft Stop, 05/26/25 9:47:00 PM EDT, [facility], filled and sold on 12-13-24 for a 28 day supply(#224), 163, cm, 05/10/25 12:43:00 EDT, Height, 60.7, kg, 03/09/25 10:58:00 EDT, Dry Weight Start Date: 05/26/25 Stop Date: 06/23/25 Status: Ordered Quantity: 224.0 Unit: tablet Repeat number: 1 traZODone 100 mg oral tablet 2, tablet, By Mouth, Daily at bedtime, # 180 tablet, Refills 1, Maintenance, 01/13/25 4:31:00 PM EDT, Route to Pharmacy Electronically, [facility], 163, cm, 12/21/24 13:52:00 EST, Height, 62.1, kg, 12/21/24 13:44:00 EST, Dry Weight Start Date: 01/13/25 Status: Ordered Quantity: 180.0 Unit: tablet Repeat number: 1 vibegron 75 mg oral tablet 1 tablet = 75 mg, By Mouth, Daily, # 30 tablet, 11 Refills, Maintenance, 02/03/25 9:42:00 AM EDT, Tablet, [facility]/pharmacy #1157, Partial fill upon patient request [...] Team Personnel Name: Diana Guzman NP Position: [facility] PCO Associate Professional Member Role: PCP Address: [address] [place] [address] [address] Telecom: Care Team Related Persons Name: ASHLEY CAILIN Insurance Providers Guarantor name: NIYA RAMIREZ Health Plan Information #: 1 Payer: MEDICARE B Payer Identifier: NA Member Number: [id number] Group Number: NA Subscriber Identifier: [id number] Relationship to Subscriber: self Coverage Type: NA Coverage Verification Date: NA Telecom: NA Address: Health Plan Information #: 2 Payer: I10 MEDICARE [id number] [id number] Payer Identifier: NA Member Number: [id number] Group Number: NA Subscriber Identifier: [id number] Relationship to Subscriber: self Coverage Type: NA Coverage Verification Date: NA Telecom: NA Address: Health Plan Information #: 3 Payer: [facility] P[employer] Payer Identifier: NA Member Number: NA Group Number: NA Subscriber Identifier: [id number] Relationship to Subscriber: self Coverage Type: Other Private Insurance Coverage Verification Date: NA Telecom: NA Address: [facility] Plan Information #: 4 Payer: [employer]EX SECONDARY ONLY Payer Identifier: LUMA Member Number: [id number] Group Number: [id number] Subscriber Identifier: [id number] Relationship to Subscriber: self Coverage Type: Medicare Other Coverage Verification Date: LUMA Telecom: NA Address:
--- NOTE | ~2025-06-21 | FL_ITS ---
EXAMINATION: FL GUIDANCE ONLY HISTORY: M53.3 - Sacrococcygeal disorders, not elsewhere classified COMPARISON: None available. TECHNIQUE: Fluoroscopy time: 18.5 seconds. Cumulative Dose: 3.1551 mGy. DAP: 0.6702 mGym2 Images: 4. FINDINGS: Fluoroscopic spot films of the pelvis demonstrate needles and contrast material in the regions of the bilateral sacroiliac joints. FL/FL guidance in treatment room IMPRESSION: Fluoroscopy during procedure. Please see procedure report for additional information. Electronically signed by: Mic Henao MD 06/21/2025 10:45 AM EDT
--- OUTSIDE RECORDS SUMMARY | 2025-06-21 07:35 | XMS_ITS | Clinical Summary ---
Author Organization [facility] Address [address] [place] [address] Phone Care Team Providers Care Studio Associate Name Role Phone Diana Guzman NP Primary Care Provider [phone] Allergies Active Allergy Reactions Criticality Noted Date [...] 80 09/22/2023 9:04 AM EST Temperature 36.3 C (97.4 F) 09/22/2023 9:04 AM EST Respiratory Rate 16 09/22/2023 9:04 AM EST [...] Colorectal Cancer Screening: Sigmoidoscopy 2005 Pneumococcal Vaccine: 50+ Ye ars (1 of 1 - PCV) 2006 Influenza Vaccine (#1) 2025 07/23/2020 Hepatitis B Vaccine Aged Out No longe r eligible based on patient's age to complete this topic Insurance [employer] Commercial [employer] Teams Studio Associate Relationship Specialty Start Date End Date Diana Guzman NP [address] [place] [address] PCP - General 08/20/23
== END 2025-06-21 07:34 | disposition home or self-care (01) ==
LOC: CF 07:33
PROVIDERS: Visit Provider Anesthesiology
DX: M53.3 Sacrococcygeal disorders, not elsewhere classified (principal); M46.1 Sacroiliitis, not elsewhere classified; M48.48XA Fatigue fracture of vertebra, sacral and sacrococcygeal region, initial encounter for fracture
CPT/HCPCS: 27096; J2003; J2795; Q9967

== ENCOUNTER 2025-06-21 09:34 | Outpatient (AMB) | payer MEDICARE, SELFPAY ==
--- NOTE | 2025-06-21 09:42 | MHC.OFFVIS ---
Vital Signs 06/21/25 09:43 06/21/25 09:58 Weight 135 lb BP 110/57 L 129/79 Blood Pressure Location Lt brachial Lt brachial Position Sitting Sitting Respiration 18 18 Pulse 98 97 Pulse Source Pulse Oximeter Pulse Oximeter Pulse Oximetry (%) 96 97 Oxygen Delivery Method Room Air Room Air Intake Visit Reasons: BILATERAL DIAGNOSTIC SIJ INJECTION Mounter Required: No Allergies Penicillins Adverse Reaction (Unknown, Verified 04/20/25 10:58) Patient doesn't recall being allergic [facility] Medical History Anemia Wheezing Seasonal allergies Mild tricuspid valve regurgitation Memory problem Anxiety Palpitations Low vitamin D level Lichen sclerosus Heberden's nodes of both hands Insomnia DJD (degenerative joint disease) of cervical spine DDD (degenerative disc disease), lumbar Chronic narcotic use Depression COVID-19 Elevated cholesterol Murmur Back pain Neck pain Osteopenia Osteoporosis Arthritis HTN (hypertension) Surgical History H/O cardiac catheterization H/O colonoscopy Social History Household Members: Spouse Housing: House Are you a primary point of care technician to a significant other at home: No Do you presently have visiting nurse or other home services: No Patient Tobacco Use Status: Never used Tobacco service: No Physical Exam Vital Signs: Last Vital Signs Pulse 97 06/21/25 09:58 Resp 18 06/21/25 09:58 BP 129/79 06/21/25 09:58 Pulse Ox 97 06/21/25 09:58 Oxygen Delivery Method Room Air 06/21/25 09:58 Assessment & Plan Assessment & Plan (1) Bilateral sacral insufficiency fracture: Code(s): M84.48XA - Pathological fracture, other site, initial encounter for fracture Category: Medical Qualifiers: Encounter type: initial encounter Qualified Code(s): M84.48XA - Pathological fracture, other site, initial encounter for fracture (2) Sacroiliitis: Code(s): M46.1 - Sacroiliitis, not elsewhere classified Category: Medical (3) Pain of both sacroiliac joints: Code(s): M53.3 - Sacrococcygeal disorders, not elsewhere classified Category: Medical Plan Bilateral diagnostic sacroiliac joint injection Informed consent was explained thoroughly to the patient.? All questions about benefits and risks for the procedure were answered. Patient came to the operating room she was positioned prone on the operating table with the pillow under her abdomen.? Time-out was performed delineating correct site and side of the procedure name and date of of the patient. Her lower back and buttocks was prepped with ChloraPrep prepped and draped with sterile towels.C-arm was brought over the operating field and sq picture of patient's pelvis was demonstrated on the screen.? For the right joint tilting C-arm contralateral to the site of the joint of the patient the most posterior portion of the joints were superimposed of the anterior portion of the joint . Skin was injected in the projection of the joint slightly medial to the location of the joint with 25 gauge 1/2 inch needle using local lidocaine 2% mixed with ropivacaine 0.5% 1 to 1 . After that 22 gauge 3 and 1/2 inch needle was driven to the right joint in tunnel vision fashion.? When needle entered the joint capsule injection of the contrast was performed demonstrating intra-articular spread of the contrast.? After that of ropivacaine o.5 % 5 mls was injected into the joint.? Upon completion of the injections the needle was removed and the procedure was repeated on the left side in the mirroring fashion. After that needle was removed. Sterile dressing was applied. Orders: Orders FL guidance in treatment room Today M53.3 - Sacrococcygeal disorders, not elsewhere classified Coding Level of Care Code Procedure Only Diagnoses Bilateral sacral insufficiency fracture, initial encounter M84.48XA Encounter type: initial encounter Sacroiliitis M46.1 Pain of both sacroiliac joints M53.3
[2025-06-21 09:43] VITALS: BP 110/57; PULSE 98; RESP 18; O2SAT 96
[2025-06-21 09:58] VITALS: BP 129/79; PULSE 97; RESP 18; O2SAT 97
== END 2025-06-21 10:00 | disposition home or self-care (01) ==
LOC: HO.PMCPRC 09:34
PROVIDERS: PCP Nurse Practitioner Adult Health; Visit Provider Anesthesiology
DX: M46.1 Sacroiliitis, not elsewhere classified (principal); M53.3 Sacrococcygeal disorders, not elsewhere classified; M84.48XA Pathological fracture, other site, initial encounter for fracture
CPT/HCPCS: 27096

== ENCOUNTER 2025-06-23 10:03 | Outpatient (AMB) | payer MEDICARE, SELFPAY ==
--- NOTE | 2025-06-23 10:09 | MHC.OFFVIS ---
Vital Signs 06/23/25 10:10 Weight 133 lb BP 117/68 Blood Pressure Location Lt brachial Position Sitting Respiration 16 Pulse 102 H Pulse Source Pulse Oximeter Pulse Oximetry (%) 100 Oxygen Delivery Method Room Air Intake Visit Reasons: S/P BILATERAL DIAGNOSTIC SIJ INJECTION 06/21/25 Transformation Manager Required: No Allergies Penicillins Adverse Reaction (Unknown, Verified 06/23/25 10:39) Patient doesn't recall being allergic HPI Comments Details: Ashley is back in my office after sacroiliac joint diagnostic injections. She reports minimal improvement of the pain immediately after the procedure and for the next 1 hour after the procedure. However at 02:00 hours her pain became 3 and it 3 hours her pain started to get into 5. That is what she had before the procedure started. Unfortunately by the 6 hours her pain aggravated to 10/10. I can not consider sacroiliac joints her pain generators. Therefore for treatment of postlaminectomy syndrome of this patient I offered her spinal cord stimulator [employer] with possibility of switching during the trial to Nevro if satisfactory results are not obtained. She will schedule appointment with [facility]. After psychological evaluation is done we will schedule her for the procedure of the trial of [employer] spinal cord stimulator. Prior: She reports her pain today 6 to 7/10. 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 She had sacral insufficiency fracture and was referred for sacroplasty to me. Unfortunately her insurance at that time denied the procedure. Her new insurance will be active in May however it is too late to perform sacroplasty. She was referred here by Neurosurgery Dr. Escalera for evaluation for sacroplasty after the procedure were due to osteoporosis the hardware became unstable. Today attention was attracted to the positive signs of sacroiliitis more on the right and less on the left. See the physical exam as below. I offered this patient to have diagnostic bilateral sacroiliac joint injection. I will perform the injection and then I will assess the level of pain of this patient. According to the patient she has severe osteoporosis. She developed stress fracture of sacral bone.. She was referred to this office by Dr. Escalera. She had L4-S1 bilateral spinal fusion performed. She had stress fracture of the sacral bones demonstrated on the MRI after the procedure. She reports her pain is being very severe. [facility] Medical History Anemia Wheezing Seasonal allergies Mild tricuspid valve regurgitation Memory problem Anxiety Palpitations Low vitamin D level Lichen sclerosus Heberden's nodes of both hands Insomnia DJD (degenerative joint disease) of cervical spine DDD (degenerative disc disease), lumbar Chronic narcotic use Depression COVID-19 Elevated cholesterol Murmur Back pain Neck pain Osteopenia Osteoporosis Arthritis HTN (hypertension) Surgical History H/O cardiac catheterization H/O colonoscopy Social History Household Members: Spouse Housing: House Are you a primary pediatric acute care unit nurse to a significant other at home: No Do you presently have visiting nurse or other home services: No Patient Tobacco Use Status: Never used Tobacco service: No Review of Systems Const All systems reviewed & are unremarkable except as noted in HPI and below ENT Reports Normal hearing present Neuro Reports Normal hearing present, Denies Abnormal speech present, Denies confusion and Denies Sensory deficit (Neuro) Psych Denies confusion Physical Exam Vital Signs: Last Vital Signs Pulse 102 H 06/23/25 10:10 Resp 16 06/23/25 10:10 BP 117/68 06/23/25 10:10 Pulse Ox 100 06/23/25 10:10 Oxygen Delivery Method Room Air 06/23/25 10:10 Const General: no acute distress; No confusion Orientation/consciousness: patient oriented x3 and No confusion Eyes General: appearance normal, both eyes and all related structures Pupils: Equal, round and reactive pupils present EOM: EOMs intact bilaterally Neck Neck: Yes full ROM Chest Chest palpation & inspection: normal inspection of the chest Resp Effort & Inspection: normal respiratory effort, able to speak in complete sentences, normal respiratory pattern, no audible wheezes and no cough Cardio Jugular venous distension: no JVD GI Inspection: Yes normal to inspection Back/Spine/Pelvis Other: Very well-healed scar on the projection of paraspinal intervals L4-S1. Severe tenderness on palpation in projection of the bilateral sacroiliac joints. Felix test is positive on the right and equivocal on the left. Pelvic compression test is positive bilaterally. Pelvic distraction test is positive bilaterally. Stinchfield test is positive bilaterally. The patient denies Valsalva maneuver aggravate her pain. She denies pain radiating all the way down into bilateral lower extremities. Neuro General: patient oriented x3, gait normal and No confusion Cranial nerves: Yes CN's II-XII intact bilaterally, Yes Equal, round and reactive pupils present, Yes Normal hearing present and Yes Ability to bilaterally elevate shoulders present Speech: No Abnormal speech present Gait exam (Neuro): Normal gait present Motor exam (neuro): 5/5 motor strength present throughout Sensory Exam: No Sensory deficit (Neuro) Extrem Other: Very weak bilateral dorsalis pedis however very strong bilateral posterior tibial pulses detected. Feet are warm on palpation, unlikely vascular deficiency. General: Yes normal to inspection, Yes capillary refill normal and No normal gait Psych Speech and movement: Normal speech and movement present Affect: normal affect Attitude: cooperative Thought process: Normal thought process present Thought content: Normal thought content present Insight: Good insight present (Psych) Judgement: Good judgement present (Psych) Assessment & Plan Assessment & Plan (1) Bilateral sacral insufficiency fracture: Code(s): M84.48XA - Pathological fracture, other site, initial encounter for fracture Category: Medical Qualifiers: Encounter type: initial encounter Qualified Code(s): M84.48XA - Pathological fracture, other site, initial encounter for fracture (2) Sacroiliitis: Code(s): M46.1 - Sacroiliitis, not elsewhere classified Category: Medical (3) Pain of both sacroiliac joints: Code(s): M53.3 - Sacrococcygeal disorders, not elsewhere classified Category: Medical Plan status post L4-S1 lumbar fusion without any improvement. The pain got worse after the procedure. Complains on pain in the projection of bilateral sacral area. Was diagnose with sacral insufficiency however insurance company denied the sacroplasty procedure. Sacroiliac joint diagnostic injection resulted in no improvement significant enough to consider sacroiliac joint a pain generators. I will schedule her for psychological evaluation with [facility] and as soon as the psychological evaluation is performed we will schedule her for the trial of [employer] spinal cord stimulator with possibility to switch during the trial to Nevro if the satisfactory results not obtained during the trial. Pain pump was also briefly mentioned today it for the patient. Patient Instructions: I here by testify that I spent 30 minutes in conversation with this patient as well as planning her care and organizing this note. Coding Level of Care Code Est Pt Level 4 (06022) Diagnoses Bilateral sacral insufficiency fracture, initial encounter M84.48XA Encounter type: initial encounter Sacroiliitis M46.1 Pain of both sacroiliac joints M53.3
[2025-06-23 10:10] VITALS: BP 117/68; PULSE 102; RESP 16; O2SAT 100
--- OUTSIDE RECORDS SUMMARY | 2025-06-23 11:29 | XMS_ITS | Clinical Summary ---
Author Organization [facility] Address [address] [place] [address] Phone Care Team Providers Care Card Hand Name Role Phone Diana Guzman NP Primary Care Provider [phone] Allergies Active Allergy Reactions Criticality Noted Date [...] this topic Insurance [employer] Commercial [employer] Teams Card Hand Relationship Specialty Start Date End Date Diana Guzman NP [address] [place] [address] PCP - General 08/20/23
== END 2025-06-23 10:25 | disposition home or self-care (01) ==
LOC: HO.PMC 10:04
PROVIDERS: PCP Nurse Practitioner Adult Health; Visit Provider Anesthesiology
DX: M84.48XA Pathological fracture, other site, initial encounter for fracture (principal); M46.1 Sacroiliitis, not elsewhere classified; M53.3 Sacrococcygeal disorders, not elsewhere classified
CPT/HCPCS: 99214

== ENCOUNTER → 2025-06-23 10:03 | Outpatient (BNVA) | payer MEDICARE, SELFPAY | PROVIDERS: PCP Nurse Practitioner Adult Health; Visit Provider Anesthesiology | DX: M84.48XD Pathological fracture, other site, subsequent encounter for fracture with routine healing (principal); M46.1 Sacroiliitis, not elsewhere classified; M53.3 Sacrococcygeal disorders, not elsewhere classified | CPT/HCPCS: 99212 ==